=== PATIENT | male | born 1930 | race Caucasian/White ===

== ENCOUNTER → 2018-09-23 | Day surgery (SDC) | payer OTHER ==
[2018-09-13 13:35] VITALS: BMI 26.4
[~2018-09-23] MED LIST: BUPIVACAINE HCL/PF 0.5% (5MG/ML) 10 ML VIAL ONE; CEFAZOLIN 1 GM/D5W 50 ML IVPB ONE; CELECOXIB 200 MG CAPSULE PO ONE; DEXAMETHASONE SOD PHOSPHATE 4 MG/1 ML VIAL ONE; KETOROLAC TROMETHAMINE 30 MG/1 ML VIAL ONE; ONDANSETRON 4 MG/2 ML VIAL ONE; PROPOFOL 20 ML ONE; ROPIVICAINE 0.2%/MORPH PF/KETOROLAC - 51ML DISP.SYRINGE IA ONE; SUCCINYLCHOLINE CHLORIDE 200 MG/10 ML VIAL ONE; TRANEXAMIC ACID 1000 MG/10 ML VIAL IVPUSH ONE; TRANEXAMIC ACID 1000 MG/10 ML VIAL ONE; ceFAZolin SODIUM 1 GM VIAL ONE; ePHEDrine SULFATE 50 MG/1 ML AMPULE ONE
[2018-09-23 06:56] VITALS: BP 131/76; PULSE 81; TEMP 98.9
== END | disposition home or self-care (01) ==
LOC: UNDOADMIN 06:04 → FASUSAT 06:04 → FM/S 06:04 → EDSTATUS 08:00
PROVIDERS: ATTEND Orthopaedic Surgery Orthopaedic Surgery of the Spine
PROC: 0SRB0JZ Replacement of Left Hip Joint with Synthetic Substitute, Open Approach (ICD-10-PCS; principal; 2018-09-23)
DX: M16.12 Unilateral primary osteoarthritis, left hip (principal); Z53.8 Procedure and treatment not carried out for other reasons
CPT/HCPCS: 82962

== ENCOUNTER 2018-09-26 06:17 | Inpatient (IN) | payer OTHER ==
[2018-09-26] MEDS ORDERED: TRANEXAMIC ACID 1000 MG/10 ML VIAL ONE (07:06)
[2018-09-26] MEDS ORDERED: ceFAZolin SODIUM 1 GM VIAL ONE (07:06)
[2018-09-26] MEDS ORDERED: SUCCINYLCHOLINE CHLORIDE 200 MG/10 ML VIAL ONE (07:07)
[2018-09-26] MEDS ORDERED: PROPOFOL 20 ML ONE ×3 (07:07)
[2018-09-26] MEDS ORDERED: TRANEXAMIC ACID 1000 MG/10 ML VIAL IVPUSH ONE (07:11)
[2018-09-26] MEDS ORDERED: CEFAZOLIN 2 GM in DEXTROSE 5%-WATER - 50 ML IVPB ONE (07:11)
[2018-09-26] MEDS ORDERED: BUPIVACAINE HCL/PF 0.5% (5MG/ML) 10 ML VIAL ONE (07:13)
[2018-09-26] MEDS ORDERED: ROPIVACAINE HCL 0.5% 30ML VIAL ONE (07:17)
[2018-09-26] MEDS ORDERED: EPINEPHrine/PF 1 MG/1 ML (1:1,000) AMPULE ONE (07:17)
[2018-09-26] MEDS ORDERED: MIDAZOLAM HCL 2 MG/2 ML SINGLE DOSE VIAL ONE ×4 (07:17→08:55)
--- NOTE | 2018-09-26 08:11 | HP ---
History & Physical Update - History History: No Change - Physical Physical: No Change - Assessment Assessment: No Change - Plan Plan: No Change (Full H&P in chart from 09/16/18)
[2018-09-26 08:29] LABS: INR 1.03 (0.83-1.09); PROTHROMBIN TIME (PATIENT) 12.1 SEC (9.7-13.0)
[2018-09-26] MEDS ORDERED: VANCOMYCIN 1,000 MG VIAL (RESTRICTED TO ID ONLY) ONE (08:40)
[2018-09-26] MEDS ORDERED: KETAMINE HCL 200 MG/20 ML VIAL ONE (08:55)
[2018-09-26] MEDS ORDERED: BENZOIN/ALOE VERA/STORAX/TOLU 58 ML BOTTLE ONE (10:14)
[2018-09-26] MEDS ORDERED: MAG HYDROX/AL HYDROX/SIMETH 30 ML UNIT-DOSE CUP PO PRN (10:44)
[2018-09-26] MEDS ORDERED: MAGNESIUM HYDROX 2400MG/30ML ORAL SUSPENSION 30 ML CUP PO PRN (10:44)
[2018-09-26] MEDS ORDERED: ONDANSETRON 4 MG/2 ML VIAL IVPUSH PRN (10:44)
[2018-09-26] MEDS ORDERED: LACTATED RINGERS SOLUTION 1,000 ML IV SCH (10:45)
--- NOTE | 2018-09-26 10:56 | OP ---
Operative Note - Note: Operative Date: 09/26/18 Pre-Operative Diagnosis: Left hip degenerative joint disease Operation: Left hip arthroplasty Post-Operative Diagnosis: Same as Pre-op Surgeon: Tramaine Miranda Avionic Technician: Bernardino Mccurdy Anesthesia: Spinal Operative Report Dictated: Yes
--- NOTE | 2018-09-26 10:57 | SURG ---
Surgery Application Integration Specialist Note Application Integration Specialist: Bernardino Mccurdy PA-C Date of Service: 09/26/18 Diagnosis: Left hip degenerative joint disease Procedure: Left hip arthroplasty I was present for the entirety of the operative procedure. For further detail, please refer to operative report. Visit type - Case Type Case Type: Scheduled - Emergency Emergency Visit: No - New patient This patient is new to me today: Yes Date on this admission: 09/26/18
--- NOTE | 2018-09-26 11:49 | HP ---
CHIEF COMPLAINT: PCP: HISTORY OF PRESENT ILLNESS: ER course was notable for: (1) (2) (3) Recent Travel: PAST MEDICAL HISTORY: PAST SURGICAL HISTORY: Social History: Smoking: Alcohol: Drugs: Family History: Allergies lisinopril Allergy (Severe, Verified 05/19/18 12:21) Swelling HOME MEDICATIONS: Home Medications Medication Instructions Recorded Glipizide 5 mg PO DAILY 05/19/18 Metformin HCl [Glucophage] 500 mg PO DAILY 05/19/18 Multivitamins [Tab-A-Vit -] 1 tab PO DAILY 05/19/18 Oxycodone HCl/Acetaminophen 1 each PO BID PRN 05/19/18 [Oxycodone-Acetaminophen 10-325] Simvastatin 40 mg PO HS 05/19/18 Warfarin Na [Coumadin] 2.5 mg PO HS 09/13/18 Enoxaparin [Lovenox -] 40 mg SQ BID 09/23/18 REVIEW OF SYSTEMS CONSTITUTIONAL: Absent: fever, chills, diaphoresis, generalized weakness, malaise, loss of appetite, weight change HEENT: Absent: rhinorrhea, nasal congestion, throat pain, throat swelling, difficulty swallowing, mouth swelling, ear pain, eye pain, visual changes CARDIOVASCULAR: Absent: chest pain, syncope, palpitations, irregular heart rate, lightheadedness , peripheral edema RESPIRATORY: Absent: cough, shortness of breath, dyspnea with exertion, orthopnea, wheezing, stridor, hemoptysis GASTROINTESTINAL: Absent: abdominal pain, abdominal distension, nausea, vomiting, diarrhea, constipation, melena, hematochezia GENITOURINARY: Absent: dysuria, frequency, urgency, hesitancy, hematuria, flank pain, genital pain MUSCULOSKELETAL: Absent: myalgia, arthralgia, joint swelling, back pain, neck pain SKIN: Absent: rash, itching, pallor HEMATOLOGIC/IMMUNOLOGIC: Absent: easy bleeding, easy bruising, lymphadenopathy, frequent infections ENDOCRINE: Absent: unexplained weight gain, unexplained weight loss, heat intolerance, cold intolerance NEUROLOGIC: Absent: headache, focal weakness or paresthesias, dizziness, unsteady gait, seizure, mental status changes, bladder or bowel incontinence PSYCHIATRIC: Absent: anxiety, depression, suicidal or homicidal ideation, hallucinations. PHYSICAL EXAMINATION Vital Signs - 24 hr 09/26/18 07:10 Temperature 98.3 F Pulse Rate 77 Respiratory 15 Rate Blood Pressure 116/64 GENERAL: Awake, alert, and fully oriented, in no acute distress. HEAD: Normal with no signs of trauma. EYES: Pupils equal, round and reactive to light, extraocular movements intact, sclera anicteric, conjunctiva clear. No lid lag. EARS, NOSE, THROAT: Ears normal, nares patent, oropharynx clear without exudates. Moist mucous membranes. NECK: Normal range of motion, supple without lymphadenopathy, JVD, or masses. LUNGS: Breath sounds equal, clear to auscultation bilaterally. No wheezes, and no crackles. No accessory muscle use. HEART: Regular rate and rhythm, normal S1 and S2 without murmur, rub or gallop. ABDOMEN: Soft, nontender, not distended, normoactive bowel sounds, no guarding, no rebound, no masses. No hepatomegaly or splenomegaly. MUSCULOSKELETAL: Normal range of motion at all joints. No bony deformities or tenderness. No CVA tenderness. UPPER EXTREMITIES: 2+ pulses, warm, well-perfused. No cyanosis. No clubbing. No peripheral edema. LOWER EXTREMITIES: 2+ pulses, warm, well-perfused. No calf tenderness. No peripheral edema. NEUROLOGICAL: Cranial nerves II-XII intact. Normal speech. Normal gait. PSYCHIATRIC: Cooperative. Good eye contact. Appropriate mood and affect. SKIN: Warm, dry, normal turgor, no rashes or lesions noted, normal capillary refill. Laboratory Results - last 24 hr 09/26/18 09/26/18 09/26/18 06:48 07:02 11:10 PT with INR 12.10 INR 1.03 POC Glucometer 161 109 ASSESSMENT/PLAN:
[2018-09-26] MEDS: ACETAMINOPHEN 325 MG TABLET (FP) PO SCH ×2 (11:50→17:17)
--- NOTE | 2018-09-26 11:51 | CONSULT ---
Consultation: REQUESTING PROVIDER: Dr. Miranda CONSULT REQUEST: We have been asked to medically evaluate this patient post- operatively. HISTORY OF PRESENT ILLNESS: 87 year-old male with a PMH significant for HTN on no meds, Type II NIDDM, COPD and bronchiectasis on no meds, CKD, OA of spine and joints, s/p spine surgery and right hip replacement. Now s/p left total hip arthroplasty earlier today with Dr. Miranda. Patient has h/o DVT, first episode s/p spine surgery 2017 and he was started on Eliquis. Subsequently switched to warfarin because Eliquis was too expensive. Patient was taken off warfarin about 5 days prior to today's surgery and started on lovenox. REVIEW OF SYSTEMS: CONSTITUTIONAL: Absent: fever, chills, diaphoresis, generalized weakness, malaise, loss of appetite, weight change HEENT: Absent: rhinorrhea, nasal congestion, throat pain, throat swelling, difficulty swallowing, mouth swelling, ear pain, eye pain, visual changes CARDIOVASCULAR: Absent: chest pain, syncope, palpitations, irregular heart rate, lightheadedness , peripheral edema RESPIRATORY: Absent: cough, shortness of breath, dyspnea with exertion, orthopnea, wheezing, stridor, hemoptysis GASTROINTESTINAL: Absent: abdominal pain, abdominal distension, nausea, vomiting, diarrhea, constipation, melena, hematochezia GENITOURINARY: Absent: dysuria, frequency, urgency, hesitancy, hematuria, flank pain, genital pain MUSCULOSKELETAL: Absent: myalgia, arthralgia, joint swelling, back pain, neck pain SKIN: Absent: rash, itching, pallor HEMATOLOGIC/IMMUNOLOGIC: Absent: easy bleeding, easy bruising, lymphadenopathy, frequent infections ENDOCRINE: Absent: unexplained weight gain, unexplained weight loss, heat intolerance, cold intolerance NEUROLOGIC: Absent: headache, focal weakness or paresthesias, dizziness, unsteady gait, seizure, mental status changes, bladder or bowel incontinence PSYCHIATRIC: Absent: anxiety, depression, suicidal or homicidal ideation, hallucinations. PHYSICAL EXAMINATION Vital Signs - 24 hr 09/26/18 07:10 Temperature 98.3 F Pulse Rate 77 Respiratory 15 Rate Blood Pressure 116/64 GENERAL: Awake, alert, and fully oriented, in no acute distress. HEAD: Normal with no signs of trauma. EYES: Pupils equal, round and reactive to light, extraocular movements intact, sclera anicteric, conjunctiva clear. No lid lag. EARS, NOSE, THROAT: Ears normal, nares patent, oropharynx clear without exudates. Moist mucous membranes. NECK: Normal range of motion, supple without lymphadenopathy, JVD, or masses. LUNGS: Breath sounds equal, clear to auscultation bilaterally. No wheezes, and no crackles. No accessory muscle use. HEART: Regular rate and rhythm, normal S1 and S2 without murmur, rub or gallop. ABDOMEN: Soft, nontender, not distended, normoactive bowel sounds, no guarding, no rebound, no masses. No hepatomegaly or splenomegaly. No lebron. MUSCULOSKELETAL: Normal range of motion at all joints. No bony deformities or tenderness. No CVA tenderness. UPPER EXTREMITIES: 2+ pulses, warm, well-perfused. No cyanosis. No clubbing. Cap refill <2 seconds. No peripheral edema. LOWER EXTREMITIES: 2+ pulses, warm, well-perfused. SCDs, TEDs, ice omar. Surgical dressing c/d/i. No surrounding erythema, edema, fluctuance. Hemovac drain in place. NEUROLOGICAL: Cranial nerves II-XII intact. Normal speech. Laboratory Results - last 24 hr 09/26/18 09/26/18 09/26/18 06:48 07:02 11:10 PT with INR 12.10 INR 1.03 POC Glucometer 161 109 Current Medications Generic Name Dose Route Start Last Admin Trade Name Freq PRN Reason Stop Dose Admin Acetaminophen 650 mg 09/26/18 18:00 09/26/18 11:50 Tylenol - PO 09/29/18 17:59 650 mg Q6H NEETA Administration Al Hydroxide/Mg Hydroxide 30 ml 09/26/18 10:44 Mylanta Oral Suspension - PO Q4H PRN DYSPEPSIA Atorvastatin Calcium 20 mg 09/26/18 22:00 Lipitor - PO HS NEETA Enoxaparin Sodium 75 mg 09/26/18 16:30 Lovenox - SQ Q12H NEETA Cefazolin Sodium 1 gram in 50 mls @ 100 mls/hr 09/26/18 18:00 Ancef 1 Gm Premixed Ivpb - IVPB 09/27/18 02:29 Q8H-IV NEETA Lactated Ringer's 1,000 mls @ 125 mls/hr 09/26/18 10:45 09/26/18 12:46 Lactated Ringers Solution IV 09/27/18 06:00 125 mls/hr ASDIR [facility] Administration Insulin Aspart 0 units 09/26/18 16:30 09/26/18 16:51 Novolog Vial SQ 6 units ACHS [facility] Administration Protocol Magnesium Hydroxide 30 ml 09/26/18 10:44 Milk Of Magnesia - PO PRN PRN CONSTIPATION Ondansetron HCl 4 mg 09/26/18 10:44 09/26/18 11:50 Zofran Injection IVPUSH 4 mg Q6H PRN Administration NAUSEA Oxycodone HCl 5 mg 09/26/18 11:32 09/26/18 11:53 Roxicodone - PO 5 mg Q3H PRN Administration PAIN LEVEL 1-5 Oxycodone HCl 10 mg 09/26/18 11:32 09/26/18 15:56 Roxicodone - PO 10 mg Q3H PRN Administration PAIN LEVEL 6-10 Pantoprazole Sodium 40 mg 09/27/18 10:00 Protonix - PO DAILY [facility] Senna/Docusate Sodium 2 tablet 09/26/18 22:00 Pericolace - PO BID [facility] Warfarin Sodium 5 mg 09/26/18 18:00 Coumadin - PO DAILY@1800 [facility] ASSESSMENT/PLAN: 87 year-old male with a PMH significant for HTN on no meds, Type II NIDDM, COPD and bronchiectasis on no meds, CKD, OA of spine and joints, s/p spine surgery and right hip replacement. Now s/p left total hip arthroplasty earlier today with Dr. Miranda. Patient has h/o DVT, first episode s/p spine surgery 2016. Left total hip arthroplasty h/o post-op DVT --POD #0 --perioperative antibiotics per surgery --pain management per surgery --anticoagulation: h/o DVT on coumadin at home which was stopped five days before surgery; adjusted lovenox to therapeutic dosing 1mg/kg BID; dose warfarin 5mg tonight, INR goal 2-3 --protonix --bowel regimen --incentive spirometry --Hemovac drain, monitor output --no lebron, voiding trial; if patient has not urinated in [address] Miranda Hypertension --BP stable --on no anti-hypertensives Type II NIDDM --Novolog sliding scale coverage COPD/bronchiectasis --stable, on no home meds CKD --pre-op BUN/Cr 03/08 --renal function stable FEN Fluids: PO intake adequate Electrolytes: replete as indicated Nutrition: regular diet DVT prophylaxis: lovenox 1mg/kg BID; ambulation, SCDs, TEDs Physical therapy Dispo: We will continue to follow the patient. Thank you for this consultative opportunity. Visit type - Emergency Visit Emergency Visit: No - New Patient This patient is new to me today: Yes Date on this admission: 09/26/18 - Critical Care Critical Care patient: No
[2018-09-26] MEDS: oxyCODONE HCL 5 MG TABLET PO PRN ×4 (11:53→21:00)
[2018-09-26] MEDS ORDERED: ONDANSETRON 4 MG/2 ML VIAL ONE (11:54)
[2018-09-26] MEDS ORDERED: oxyCODONE HCL 5 MG TABLET ONE (11:54)
[2018-09-26] MEDS: INSULIN (NOVOLOG) ASPART 100 UNITS/ML 10ML VIAL SQ SCH ×2 (16:51→21:07)
[2018-09-26] MEDS: CEFAZOLIN 1 GM/D5W 1 GRAM/50 ML BAG IVPB SCH (17:17)
[2018-09-26] MEDS: WARFARIN NA 5 MG TABLET (UD) PO SCH (17:17)
[2018-09-26] MEDS: ENOXAPARIN NA (PORCINE) 80 MG/0.8 ML DISP.SYRIN SQ SCH (17:31)
[2018-09-26] MEDS: SENNOSIDES/DOCUSATE COMBO (SENNA PLUS) TABLET (UD) PO SCH (21:00)
[2018-09-26] MEDS: ATORVASTATIN CA 20 MG TABLET (FP) PO SCH (21:01)
[2018-09-26] MEDS ORDERED: PATIENT'S OWN MEDICATION (NON-FORMULARY) (Simvastatin [Simvastatin] 40 MG) PO SCH (22:00)
[2018-09-26] MEDS ORDERED: WARFARIN NA 2.5 MG TABLET (FP) PO SCH (22:00)
[2018-09-26] MEDS ORDERED: ENOXAPARIN NA (PORCINE) 40 MG/0.4 ML DISP.SYRIN SQ SCH (22:00)
[2018-09-27] MEDS: oxyCODONE HCL 5 MG TABLET PO PRN ×3 (02:57→21:12)
[2018-09-27] MEDS: CEFAZOLIN 1 GM/D5W 1 GRAM/50 ML BAG IVPB SCH (02:57)
[2018-09-27] MEDS: ENOXAPARIN NA (PORCINE) 80 MG/0.8 ML DISP.SYRIN SQ SCH ×2 (05:27→17:30)
[2018-09-27] MEDS: ACETAMINOPHEN 325 MG TABLET (FP) PO SCH ×4 (06:32→18:08)
[2018-09-27] MEDS: INSULIN (NOVOLOG) ASPART 100 UNITS/ML 10ML VIAL SQ SCH ×4 (06:32→21:56)
[2018-09-27] MEDS ORDERED: metFORMIN HCL 500 MG TABLET (FP) PO SCH (07:00)
[2018-09-27] MEDS ORDERED: glipiZIDE 5 MG TABLET (FP) PO SCH (07:00)
--- NOTE | 2018-09-27 07:24 | PN ---
Progress Note (short form) - Note Progress Note: POD #1 s/p Left SANTA Alert. Sitting in chair at bedside. Elevated with ice pack in place. C/o incisional tenderness. Pain controled via variety of medications PO & IV. Hasn't ambulated with PT yet. Denies n/v/f/c, CP, palpitations, SOB or CARRANZA. Last Vital Signs Temp Pulse Resp BP Pulse Ox 98.7 F 102 H 18 125/65 99 09/27/ 06:00 09/27/18 06:00 09/27/18 06:00 09/27/18 06:00 09/27/18 06:00 PE Gen: nad LE: Right unremarkable. LLE with dressing c/d/i. No hematoma. Hemovac on self- suction (signs of thinning out). Elevated with ice pack in place. Abduction pillow in place. No calf tenderness/swelling/edema. DP 2+ Problem List - Problems (1) Degenerative joint disease of left hip Assessment/Plan: POD #1 Cont pain management DVT PPX: ASA 81 mg bid x 6 weeks and TEDs/SCDs Incentive Spirometer OOB w/ PT WBAT LLE Posterior hip precaution Hip abduction pillow (in place) Monitor drain output and record q shift f/u AM labs Patient states [facility] to [facility] DC planning 09/28/18 Above plan discussed with Dr. Tramaine Miranda and agrees. Code(s): M16.12 - UNILATERAL PRIMARY OSTEOARTHRITIS, LEFT HIP
[2018-09-27 08:22] LABS: HEMATOCRIT 31.8 % (35.4-49); HEMOGLOBIN 10.3 GM/dl (11.7-16.9); MCH 29.6 pg (25.7-33.7); MCHC 32.4 g/dl (32.0-35.9); MEAN CELL VOLUME 91.2 fl (80-96); MEAN PLT VOLUME 8.7 fl (7.5-11.1); PLATELET COUNT 169 K/MM3 (134-434); RBC 3.49 M/mm3 (4.00-5.60); RDW 12.7 % (11.9-15.9); WHITE BLOOD COUNT 10.1 K/mm3 (4.0-10.8)
[2018-09-27 08:44] LABS: ANION GAP 8 MMOL/L (8-16); BLOOD UREA NITROGEN 20 mg/dl (7-18); CALCIUM 8.3 mg/dl (8.5-10); CHLORIDE 102 mmol/L (98-107); CO2 24 mmol/L (21-32); CREATININE 1.3 mg/dl (0.55-1.3); GLUCOSE,RANDOM 274 mg/dl (74-106); MAGNESIUM 1.7 mg/dL (1.8-2.4); POTASSIUM 4.4 mmol/L (3.5-5.1); SODIUM 134 mmol/L (136-145)
[2018-09-27] MEDS: PANTOPRAZOLE 40 MG TABLET (FP) PO SCH (09:00)
[2018-09-27] MEDS: SENNOSIDES/DOCUSATE COMBO (SENNA PLUS) TABLET (UD) PO SCH ×2 (09:00→21:12)
[2018-09-27 09:48] LABS: INR 1.39 (0.82-1.09); PROTHROMBIN TIME (PATIENT) 15.5 SEC (10.2-13.0)
[2018-09-27] MEDS ORDERED: MAGNESIUM SULF 50% (8.12 MEQ/2 ML-1 GM VIAL) IVPB ONE (09:49)
--- NOTE | 2018-09-27 09:50 | PN ---
Physical Exam: SUBJECTIVE: Patient seen and examined oob to chair. Worked with PT this am, session went well. Pain is well-managed. OBJECTIVE: Vital Signs Period Temp Pulse Resp BP Sys/Faria Pulse Ox Last 24 Hr 97.5 F-99.3 F 60-110 07-06 109-140/51-82 95-100 GENERAL: Awake, alert, and fully oriented, in no acute distress. LUNGS: Breath sounds equal, clear to auscultation bilaterally. No wheezes, and no crackles. No accessory muscle use. HEART: Regular rate and rhythm, normal S1 and S2 ABDOMEN: Soft, nontender, not distended UPPER EXTREMITIES: 2+ pulses, warm, well-perfused. No cyanosis. No clubbing. Cap refill <2 seconds. No peripheral edema. LOWER EXTREMITIES: 2+ pulses, warm, well-perfused. SCDs, TEDs, ice omar. Left upper thigh surgical dressing c/d/i. No surrounding erythema, edema, fluctuance. Hemovac drain in place. NEUROLOGICAL: Cranial nerves II-XII intact. Normal speech. Laboratory Results - last 24 hr 09/26/18 09/26/18 09/26/18 11:10 16:45 21:05 WBC RBC Hgb Hct MCV MCH MCHC RDW Plt Count MPV Sodium Potassium Chloride Carbon Dioxide Anion Gap BUN Creatinine Creat Clearance w eGFR POC Glucometer 109 264 201 Random Glucose Calcium Magnesium 09/27/18 09/27/18 09/27/18 06:29 07:10 07:10 WBC 10.1 RBC 3.49 L Hgb 10.3 L Hct 31.8 L MCV 91.2 MCH 29.6 MCHC 32.4 RDW 12.7 Plt Count 169 MPV 8.7 Sodium 134 L Potassium 4.4 Chloride 102 Carbon Dioxide 24 Anion Gap 8 BUN 20 H Creatinine 1.3 Creat Clearance w eGFR 52.47 POC Glucometer 251 Random Glucose 274 H Calcium 8.3 L Magnesium 1.7 L Active Medications Generic Name Dose Route Start Last Admin Trade Name Freq PRN Reason Stop Dose Admin Acetaminophen 650 mg 09/26/18 18:00 09/27/18 06:32 Tylenol - PO 09/29/18 17:59 650 mg Q6H NEETA Administration Al Hydroxide/Mg Hydroxide 30 ml 09/26/18 10:44 Mylanta Oral Suspension - PO Q4H PRN DYSPEPSIA Atorvastatin Calcium 20 mg 09/26/18 22:00 09/26/18 21:01 Lipitor - PO 20 mg HS NEETA Administration Enoxaparin Sodium 75 mg 09/26/18 17:30 09/27/18 05:27 Lovenox - SQ 75 mg BID@0500,1700 NEETA Administration Insulin Aspart 0 units 09/26/18 16:30 09/27/18 06:32 Novolog Vial SQ 6 units ACHS NEETA Administration Protocol Magnesium Hydroxide 30 ml 09/26/18 10:44 Milk Of Magnesia - PO PRN PRN CONSTIPATION Magnesium Sulfate 2 gm 09/27/18 09:49 Magnesium Sulfate IVPB 09/27/18 09:50 ONCE ONE Ondansetron HCl 4 mg 09/26/18 10:44 09/26/18 11:50 Zofran Injection IVPUSH 4 mg Q6H PRN Administration NAUSEA Oxycodone HCl 5 mg 09/26/18 11:32 09/26/18 11:53 Roxicodone - PO 5 mg Q3H PRN Administration PAIN LEVEL 1-5 Oxycodone HCl 10 mg 09/26/18 11:32 09/27/18 06:27 Roxicodone - PO 10 mg Q3H PRN Administration PAIN LEVEL 6-10 Pantoprazole Sodium 40 mg 09/27/18 10:00 09/27/18 09:00 Protonix - PO 40 mg DAILY NEETA Administration Senna/Docusate Sodium 2 tablet 09/26/18 22:00 09/27/18 09:00 Pericolace - PO 2 tablet BID NEETA Administration Warfarin Sodium 5 mg 09/26/18 18:00 09/26/18 17:17 Coumadin - PO 5 mg DAILY@1800 [facility] Administration ASSESSMENT/PLAN 87 year-old male with a PMH significant for HTN on no meds, Type II NIDDM, COPD and bronchiectasis on no meds, CKD, OA of spine and joints, s/p spine surgery and right hip replacement. Now s/p left total hip arthroplasty. Patient has h/o DVT, first episode s/p spine surgery 2016. Left total hip arthroplasty h/o post-op DVT --POD #1 --perioperative antibiotics per surgery --pain management per surgery --anticoagulation: h/o DVT on coumadin at home which was stopped five days before surgery and started on lovenox, continue 1mg/kg BID; INR today 1.39, dose warfarin 5mg tonight, INR goal 2-3 --protonix --bowel regimen --incentive spirometry --Hemovac drain, 60cc's output overnight --no lebron, voiding freely Hypertension --BP stable --on no anti-hypertensives Type II NIDDM --Novolog sliding scale coverage COPD/bronchiectasis --stable, on no home meds CKD --pre-op BUN/Cr 03/08 --renal function stable Hypomagnesemia --repleted FEN Fluids: PO intake adequate Electrolytes: replete as indicated Nutrition: regular diet DVT prophylaxis: lovenox 1mg/kg BID; ambulation, SCDs, TEDs Physical therapy Dispo: We will continue to follow the patient. Thank you for this consultative opportunity. Visit type - Emergency Visit Emergency Visit: No - New Patient This patient is new to me today: No - Critical Care Critical Care patient: No
--- NOTE | 2018-09-27 09:53 | PN ---
Progress Note (short form) - Note Progress Note: Anesthesiology Post-op/Pain Service 87 y.o. man POD#1 s/p Left hip arthroplasty under regional/neuraxial anesthesia. He is just starting to work with PT and does c/o pain. He states that pain medication helps somewhat. VSS. No acute issues. No residual paresthesia. 87 y.o. man with stable post-operative course. Continue management as per primary team.
[2018-09-27] MEDS ORDERED: MULTIVITAMINS (DAILY MVI) TABLET (FP) PO SCH (10:00)
--- NOTE | 2018-09-27 10:22 | OP ---
DATE OF OPERATION: 09/26/2018 SURGEON: Tramaine Miranda MD SHEET METAL FOREMAN: Bernardino Mccurdy PA-C PLACE: [facility]. PREOPERATIVE DIAGNOSIS: End-stage osteoarthritis, left hip. POSTOPERATIVE DIAGNOSIS: End-stage osteoarthritis, left hip. OPERATION PERFORMED: Left cement-less total hip arthroplasty ([place]). ANESTHESIA: Spinal anesthesia with conscious sedation. ANTIBIOTICS GIVEN: Kefzol 2 g, vancomycin 1 g preoperatively. Kefzol 1 g given at the time of seating of the femoral component. OPERATION DETAILS: The patient was correctly identified, brought into the operating room. The left lower extremity was prepped, draped in the routine manner with Betadine scrub solution, wiped with alcohol, DuraPrep applied. A lateral incision was utilized with the hip and knee flexed to 45 degrees. The skin and subcutaneous tissues were opened to the hip abductor fascia. The hip abductor fascia opened, held out of harms way with Charnley retractors, exposing the entire hip abductor mechanism using anterior lateral approach. The anteromedial fibers of gluteus medius were lifted off of the actual greater trochanter. Sharp Hohmann was placed extracapsularly to expose the capsule itself. The capsule enabled an easy visualization, and it was lifted off the actual femoral neck using a unipolar Bovie from inferomedial to superolateral. One T-incision made into the capsule, lifting the entire capsule upwards. Once this had been performed, the hip was abducted, externally rotated and dislocated with no difficulty. Severe osteoarthritis encountered. An anterior, posterior, inferior retractor was seated around the acetabulum exposing the acetabulum with no difficulty. The labrum was resected. The reaming was to size 52, and a size 54 Trident II plastic cup inserted. Solid press-fit fixation achieved. Cut was at 15 degrees anteverted and closed appropriately to about 40 degrees. Once this had been performed, the hip was adducted, externally rotated. The gluteus medius was retracted out of harms way. Best using a sharp Hohmann, box cut enabled easy access to the entry of the greater trochanter. The canal finder was passed. The lateralizing broach reamer was inserted, and broaching was to size 5, and trialing with this Accolade II broach system for a 127-mm stem founded at 32-mm like head and -4 ceramic head gave equal leg length on the table and full stability with all ranges of motion noted. No complications. The tissues were thoroughly lavaged throughout. The definitive prosthesis was inserted, namely that being an Accolade II size 5 with a 127-degree stem and 32-mm -4 ceramic head seated in a 32-mm neutral liner. Lumens were thoroughly lavaged. Stability in flexion, , internal rotation, as well as extension, external rotation noted. Full range of movement appreciated. The tissues of the tissue tensioning felt normal and well maintained with a tight reduction achieved, myofascial tension being correct. Closure hip abductor mechanism 1 Vicryl, fascia 1 Vicryl, subcutaneous 1 and 2-0 Vicryl, skin ashtyn. Drainage 1/8-inch subcutaneously x1. No complications. Operation went well. Blood loss no more then 50-75 mL. MD RAMAN Horan/[id number]
[2018-09-27] MEDS ORDERED: MAGNESIUM SULFATE IN WATER 2 GM/50 ML IVPB IVPB ONE (10:30)
[2018-09-27] MEDS ORDERED: SODIUM CHLORIDE 1,000 ML IV STA (14:11)
--- NOTE | 2018-09-27 14:28 | RAPID ---
Physical Examination Vital Signs: Labs: CBC, BMP 09/27/18 07:10 09/27/18 07:10 Rapid Response - Rapid Response Assessment: Summoned to room by RN Krystin and PT Milena Gruber. Advised patient was in the PT room when he complained of feeling weak. His BP dropped to 66/43, pulse 80s, SpO2 80% on room air. He was quickly rolled back to his room. On my arrival IV fluids were already running wide open. Patient was alert, oriented, speaking clearly. Physical exam General: A&Ox3, pale but skin dry, warm Lungs: CTA CV: S1, S2, rrr Abd: soft, not tender, not distended Ext: SCDs in place; 2+ pulses, warm, well-perfused Left hip: surgical dressing c/d/i; Hemovac drain with estimated ~30cc sanguinous fluid Asssessment & Plan Hypotension Hypoxia --NS x 1L; then 83mL/hr --titrate O2 to >94% --cbc, cmp, Mg, lactic acid, troponins --CXR --ECG Critical Care Total Critical Care Time (in minutes): 35 Critical Care Statement: The care of this patient involved high complexity decision making to prevent further life threatening deterioration of the patient 's condition and/or to evaluate & treat vital organ system(s) failure or risk of failure.
[2018-09-27 14:39] LABS: BASO % 0.2 % (0-2.0); EOS % 0.2 % (0-4.5); HEMOGLOBIN 9.8 GM/dl (11.7-16.9); LYMPH % 12.8 % (8-40); MCH 29.4 pg (25.7-33.7); MCHC 32.5 g/dl (32.0-35.9); MEAN CELL VOLUME 90.4 fl (80-96); MEAN PLT VOLUME 6.9 fl (7.5-11.1); MONO % 7.1 % (3.8-10.2); NEUT % 79.7 % (42.8-82.8); PLATELET COUNT 182 K/MM3 (134-434); RBC 3.32 M/mm3 (4.00-5.60); WHITE BLOOD COUNT 11.4 K/mm3 (4.0-10.8)
[2018-09-27] MEDS: SODIUM CHLORIDE 1,000 ML IV SCH (14:45)
[2018-09-27 15:19] LABS: ALBUMIN 3.1 g/dl (3.4-5.0); ALK PHOS 33 U/L (45-117); ANION GAP 9 MMOL/L (8-16); BILIRUBIN,TOTAL 0.5 mg/dl (0.2-1); BLOOD UREA NITROGEN 26 mg/dl (7-18); CALCIUM 8.1 mg/dl (8.5-10); CHLORIDE 103 mmol/L (98-107); CO2 22 mmol/L (21-32); CREATININE 1.7 mg/dl (0.55-1.3); GLUCOSE,RANDOM 202 mg/dl (74-106); MAGNESIUM 2.9 mg/dL (1.8-2.4); POTASSIUM 4.1 mmol/L (3.5-5.1); SGOT/AST 35 U/L (15-37); SGPT/ALT 26 U/L (13-61); SODIUM 134 mmol/L (136-145); TOT PROT 5.6 g/dl (6.4-8.2)
[2018-09-27] MEDS ORDERED: SODIUM CHLORIDE 500 ML IV STA ×2 (15:53→18:10)
--- NOTE | 2018-09-27 17:15 | EKG ---
Test Reason : Blood Pressure : / mmHG Vent. Rate : 088 BPM Atrial Rate : 088 BPM P-R Int : 174 ms QRS Dur : 102 ms QT Int : 424 ms P-R-T Axes : 038 -35 102 degrees QTc Int : 513 ms NORMAL SINUS RHYTHM LEFT AXIS DEVIATION MODERATE VOLTAGE CRITERIA FOR LVH, MAY BE NORMAL VARIANT NONSPECIFIC T WAVE ABNORMALITY ABNORMAL ECG NO PREVIOUS ECGS AVAILABLE Confirmed by MD ANNIA, VALERIO ([id number]) on 09/27/2018 5:14:41 PM Referred By: Tramaine Miranda Confirmed By:VALERIO MILNER MD
[2018-09-27] MEDS: WARFARIN NA 5 MG TABLET (UD) PO SCH (18:11)
[2018-09-27 20:58] LABS: BASO % 0.3 % (0-2.0); EOS % 0.2 % (0-4.5); HEMATOCRIT 26.2 % (35.4-49); HEMOGLOBIN 8.6 GM/dl (11.7-16.9); LYMPH % 12.8 % (8-40); MCH 29.6 pg (25.7-33.7); MCHC 32.7 g/dl (32.0-35.9); MEAN CELL VOLUME 90.5 fl (80-96); MEAN PLT VOLUME 8.5 fl (7.5-11.1); MONO % 6.3 % (3.8-10.2); NEUT % 80.4 % (42.8-82.8); PLATELET COUNT 146 K/MM3 (134-434); RDW 12.8 % (11.9-15.9); WHITE BLOOD COUNT 10.4 K/mm3 (4.0-10.8)
[2018-09-27 21:02] LABS: ANION GAP 5 MMOL/L (8-16); BLOOD UREA NITROGEN 26 mg/dl (7-18); CALCIUM 7.5 mg/dl (8.5-10); CHLORIDE 106 mmol/L (98-107); CO2 23 mmol/L (21-32); CREATININE 1.6 mg/dl (0.55-1.3); GLUCOSE,RANDOM 207 mg/dl (74-106); MAGNESIUM 2.4 mg/dL (1.8-2.4); SODIUM 134 mmol/L (136-145)
[2018-09-27] MEDS: ATORVASTATIN CA 20 MG TABLET (FP) PO SCH (21:12)
[2018-09-27 21:36] LABS: POTASSIUM 5.1 mmol/L (3.5-5.1)
[2018-09-28] MEDS: ACETAMINOPHEN 325 MG TABLET (FP) PO SCH ×4 (01:03→18:00)
[2018-09-28] MEDS: oxyCODONE HCL 5 MG TABLET PO PRN ×2 (06:55→20:37)
[2018-09-28] MEDS: ENOXAPARIN NA (PORCINE) 80 MG/0.8 ML DISP.SYRIN SQ SCH ×2 (06:56→18:51)
[2018-09-28] MEDS: INSULIN (NOVOLOG) ASPART 100 UNITS/ML 10ML VIAL SQ SCH ×4 (06:58→21:19)
[2018-09-28 07:58] LABS: HEMATOCRIT 23.5 % (35.4-49); HEMOGLOBIN 7.7 GM/dl (11.7-16.9); MCH 29.7 pg (25.7-33.7); MCHC 32.8 g/dl (32.0-35.9); MEAN CELL VOLUME 90.6 fl (80-96); MEAN PLT VOLUME 8.3 fl (7.5-11.1); PLATELET COUNT 139 K/MM3 (134-434); RBC 2.59 M/mm3 (4.00-5.60); WHITE BLOOD COUNT 10.2 K/mm3 (4.0-10.8)
[2018-09-28 08:01] LABS: INR 1.95 (0.82-1.09); PROTHROMBIN TIME (PATIENT) 21.5 SEC (10.2-13.0)
--- NOTE | 2018-09-28 08:09 | PN ---
Progress Note (short form) - Note Progress Note: POD 2, s/p L THR Pt seen and examined with attending Dr Miranda. Events from yesterday afternoon noted, pt had RR while ambulating with PT (weakness, hypotension/hypoxia). Given 1L bolus NS, O2, troponins/ekg neg for cardiac event, creatinine noted to inc (1.3 to 1.7). This AM pt states he still feels a bit weak. Is oob to chair. Tolerating minimal PO intake secondary to decreased appeitite. Voiding without issue. No BM yet. Denies cp/sob, n/v/d, calf pain/edema. Vital Signs Temp 99.2 F 09/28/18 06:00 Pulse 99 H 09/28/18 06:00 Resp 19 09/28/18 06:00 BP 109/47 L 09/28/18 06:00 Pulse Ox 96 09/28/18 06:48 Intake & Output 09/27/18 09/27/18 09/28/18 11:59 23:59 11:59 Intake Total 400 3030 1746 Output Total 460 450 Balance -60 3030 1296 Intake: IV 2200 1496 Normal Saline - 1,000 ml 1000 @ 1000 mls/hr IV ASDIR STA Rx#:[id number] Normal Saline - 1,000 ml 200 996 @ 83 mls/hr IV ASDIR NEETA Rx#:[id number] Normal Saline - 500 ml @ 500 500 mls/hr IV ASDIR STA Rx#:[id number] Normal Saline - 500 ml @ 500 500 500 mls/hr IV ASDIR STA Rx#:[id number] Oral 400 830 250 Output: Drainage 60 Left Hip 60 Urine 400 450 Void 400 450 Other: Voiding Method Toilet Urinal # Unmeasured Voids Void 2 Bowel Movement Yes # Bowel Movements 1 CBC, BMP 09/28/18 07:20 09/28/18 07:20 Gen: nad, sitting up in chair Eyes: b/l pale conjunctiva Resp: unlabored on RA LE: Right unremarkable. LLE with dressing c/d/i. No hematoma. Hemovac on self- suction with bloody drainage in tubing, elevated. Abduction pillow in place. No calf tenderness/swelling/edema. DP 2+ Neuro: b/l le dorsi/plantarflexion 5/5, 5/5 HF on R, unable to lift LLE. A/P: 87 y/o M w/ PMHx HTN on no meds, Type II NIDDM, COPD and bronchiectasis on no meds, CKD, OA of spine and joints, s/p spine surgery and right hip replacement in the past, now POD 2, s/p L THR now with acute blood loss anemia. Afebrile, slightly tachy to high 90s, low 100s, hypotensive to low 100s. Pain controlled. 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 Tramaine Miranda
[2018-09-28 08:10] LABS: ALBUMIN 2.6 g/dl (3.4-5.0); ALK PHOS 29 U/L (45-117); ANION GAP 8 MMOL/L (8-16); BILIRUBIN,TOTAL 0.6 mg/dl (0.2-1); BLOOD UREA NITROGEN 25 mg/dl (7-18); CALCIUM 7.7 mg/dl (8.5-10); CHLORIDE 108 mmol/L (98-107); CO2 22 mmol/L (21-32); CREATININE 1.5 mg/dl (0.55-1.3); GLUCOSE,RANDOM 189 mg/dl (74-106); MAGNESIUM 2.2 mg/dL (1.8-2.4); SGOT/AST 22 U/L (15-37); SGPT/ALT 15 U/L (13-61); SODIUM 138 mmol/L (136-145); TOT PROT 4.9 g/dl (6.4-8.2)
[2018-09-28] MEDS: PANTOPRAZOLE 40 MG TABLET (FP) PO SCH (10:00)
[2018-09-28] MEDS: SENNOSIDES/DOCUSATE COMBO (SENNA PLUS) TABLET (UD) PO SCH ×2 (10:00→21:19)
--- NOTE | 2018-09-28 11:33 | PN ---
Physical Exam: SUBJECTIVE: Patient seen and examined oob to chair. Back from morning PT. Feels slightly dizzy. OBJECTIVE: Vital Signs Period Temp Pulse Resp BP Sys/Faria Pulse Ox Last 24 Hr 97.8 F-99.2 F 80-99 16-19 95-144/47-61 96-97 GENERAL: Awake, alert, and fully oriented, in no acute distress. LUNGS: Breath sounds equal, clear to auscultation HEART: Regular rate and rhythm, normal S1 and S2 ABDOMEN: Soft, nontender, not distended UPPER EXTREMITIES: 2+ pulses, warm, well-perfused. No cyanosis. No clubbing. Cap refill <2 seconds. No peripheral edema. LOWER EXTREMITIES: 2+ pulses, warm, well-perfused. SCDs, TEDs, ice omar. Left upper thigh surgical dressing c/d/i. No surrounding erythema, edema, fluctuance. Hemovac drain in place. NEUROLOGICAL: Cranial nerves II-XII intact. Normal speech. Laboratory Results - last 24 hr 09/27/18 09/27/18 09/27/18 14:20 14:20 14:20 WBC 11.4 H RBC 3.32 L Hgb 9.8 L Hct 30.0 L MCV 90.4 MCH 29.4 MCHC 32.5 RDW 13.0 Plt Count 182 MPV 6.9 L D Absolute Neuts (auto) 9.1 Neutrophils % 79.7 Lymphocytes % 12.8 Monocytes % 7.1 Eosinophils % 0.2 Basophils % 0.2 PT with INR INR Sodium 134 L Potassium 4.1 Chloride 103 Carbon Dioxide 22 Anion Gap 9 BUN 26 H Creatinine 1.7 H Creat Clearance w eGFR 38.50 POC Glucometer Random Glucose 202 H Lactic Acid Calcium 8.1 L Magnesium 2.9 H Total Bilirubin 0.5 AST 35 ALT 26 Alkaline Phosphatase 33 L Troponin I Total Protein 5.6 L Albumin 3.1 L Blood Type A POSITIVE Antibody Screen Negative Crossmatch See Detail 09/27/18 09/27/18 09/27/18 14:20 14:20 14:25 WBC RBC Hgb Hct MCV MCH MCHC RDW Plt Count MPV Absolute Neuts (auto) Neutrophils % Lymphocytes % Monocytes % Eosinophils % Basophils % PT with INR INR Sodium Potassium Chloride Carbon Dioxide Anion Gap BUN Creatinine Creat Clearance w eGFR POC Glucometer Random Glucose Lactic Acid 3.0 H* Calcium Magnesium Total Bilirubin AST ALT Alkaline Phosphatase Troponin I 0.03 Total Protein Albumin Blood Type A POSITIVE Antibody Screen Crossmatch 09/27/18 09/27/18 09/27/18 17:31 20:30 20:30 WBC RBC Hgb Hct MCV MCH MCHC RDW Plt Count MPV Absolute Neuts (auto) Neutrophils % Lymphocytes % Monocytes % Eosinophils % Basophils % PT with INR INR Sodium 134 L Potassium 5.1 Chloride 106 Carbon Dioxide 23 Anion Gap 5 L BUN 26 H Creatinine 1.6 H Creat Clearance w eGFR 41.29 POC Glucometer 213 Random Glucose 207 H Lactic Acid Calcium 7.5 L Magnesium 2.4 Total Bilirubin AST ALT Alkaline Phosphatase Troponin I 0.03 Total Protein Albumin Blood Type Antibody Screen Crossmatch 09/27/18 09/27/18 09/27/18 20:30 20:30 21:53 WBC 10.4 RBC 2.90 L Hgb 8.6 L Hct 26.2 L MCV 90.5 MCH 29.6 MCHC 32.7 RDW 12.8 Plt Count 146 MPV 8.5 D Absolute Neuts (auto) 8.4 Neutrophils % 80.4 Lymphocytes % 12.8 Monocytes % 6.3 Eosinophils % 0.2 Basophils % 0.3 PT with INR INR Sodium Potassium Chloride Carbon Dioxide Anion Gap BUN Creatinine Creat Clearance w eGFR POC Glucometer 174 Random Glucose Lactic Acid 2.1 H Calcium Magnesium Total Bilirubin AST ALT Alkaline Phosphatase Troponin I Total Protein Albumin Blood Type Antibody Screen Crossmatch 09/28/18 09/28/18 09/28/18 02:30 06:54 07:20 WBC 10.2 RBC 2.59 L Hgb 7.7 L Hct 23.5 L MCV 90.6 MCH 29.7 MCHC 32.8 RDW 13.0 Plt Count 139 MPV 8.3 Absolute Neuts (auto) Neutrophils % Lymphocytes % Monocytes % Eosinophils % Basophils % PT with INR INR Sodium Potassium Chloride Carbon Dioxide Anion Gap BUN Creatinine Creat Clearance w eGFR POC Glucometer 163 Random Glucose Lactic Acid Calcium Magnesium Total Bilirubin AST ALT Alkaline Phosphatase Troponin I < 0.02 Total Protein Albumin Blood Type Antibody Screen Crossmatch 09/28/18 09/28/18 07:20 07:20 WBC RBC Hgb Hct MCV MCH MCHC RDW Plt Count MPV Absolute Neuts (auto) Neutrophils % Lymphocytes % Monocytes % Eosinophils % Basophils % PT with INR 21.5 H INR 1.95 H D Sodium 138 Potassium 4.0 Chloride 108 H Carbon Dioxide 22 Anion Gap 8 BUN 25 H Creatinine 1.5 H Creat Clearance w eGFR 44.48 POC Glucometer Random Glucose 189 H Lactic Acid Calcium 7.7 L Magnesium 2.2 Total Bilirubin 0.6 AST 22 ALT 15 Alkaline Phosphatase 29 L Troponin I Total Protein 4.9 L Albumin 2.6 L Blood Type Antibody Screen Crossmatch Active Medications Generic Name Dose Route Start Last Admin Trade Name Freq PRN Reason Stop Dose Admin Acetaminophen 650 mg 09/26/18 18:00 09/28/18 06:56 Tylenol - PO 09/29/18 17:59 650 mg Q6H NEETA Administration Al Hydroxide/Mg Hydroxide 30 ml 09/26/18 10:44 Mylanta Oral Suspension - PO Q4H PRN DYSPEPSIA Atorvastatin Calcium 20 mg 09/26/18 22:00 09/27/18 21:12 Lipitor - PO 20 mg HS NEETA Administration Enoxaparin Sodium 75 mg 09/26/18 17:30 09/28/18 06:56 Lovenox - SQ 75 mg BID@0500,1700 NEETA Administration Sodium Chloride 1,000 mls @ 83 mls/hr 09/27/18 14:45 09/27/18 14:45 Normal Saline - IV 83 mls/hr ASDIR NEETA Administration Insulin Aspart 0 units 09/26/18 16:30 09/28/18 06:58 Novolog Vial SQ 2 units ACHS NEETA Administration Protocol Magnesium Hydroxide 30 ml 09/26/18 10:44 Milk Of Magnesia - PO PRN PRN CONSTIPATION Ondansetron HCl 4 mg 09/26/18 10:44 09/26/18 11:50 Zofran Injection IVPUSH 4 mg Q6H PRN Administration NAUSEA Oxycodone HCl 5 mg 09/26/18 11:32 09/28/18 06:55 Roxicodone - PO 5 mg Q3H PRN Administration PAIN LEVEL 1-5 Oxycodone HCl 10 mg 09/26/18 11:32 09/27/18 21:12 Roxicodone - PO 10 mg Q3H PRN Administration PAIN LEVEL 6-10 Pantoprazole Sodium 40 mg 09/27/18 10:00 09/27/18 09:00 Protonix - PO 40 mg DAILY NEETA Administration Senna/Docusate Sodium 2 tablet 09/26/18 22:00 09/27/18 21:12 Pericolace - PO 2 tablet BID NEETA Administration Warfarin Sodium 5 mg 09/26/18 18:00 09/27/18 18:11 Coumadin - PO 5 mg DAILY@1800 [facility] Administration ASSESSMENT/PLAN 87 year-old male with a PMH significant for HTN on no meds, Type II NIDDM, COPD and bronchiectasis on no meds, CKD, OA of spine and joints, s/p spine surgery and right hip replacement. Now s/p left total hip arthroplasty. Patient has h/o DVT, first episode s/p spine surgery 2016. Left total hip arthroplasty h/o post-op DVT --POD #2 --episode of hypotension yesterday, fluid resuscitated --perioperative antibiotics complete --pain management per surgery --anticoagulation: h/o DVT on coumadin at home which was stopped five days before surgery and started on lovenox, continue 1mg/kg BID; INR today 1.95, dose warfarin 5mg tonight, INR goal 2-3 --protonix --bowel regimen --incentive spirometry --no lebron, voiding freely Acute blood loss anemia in setting of anti-coagulation --Hemovac drain, 120cc's output overnight --Hgb dropped 10.3-->7.7, symptomatic --transfuse 2U PRBCs Hypertension --BP running on low side; not orthostatic --IV fluids Type II NIDDM --Novolog sliding scale coverage COPD/bronchiectasis --stable, on no home meds CKD --baseline creatinine 1.0 --Cr spiked 1.7 after hypotensive episode yesterday, improved to 1.5 today --continue IV fluids Hypomagnesemia --repleted FEN Fluids: NS@83mL/hr Electrolytes: replete as indicated Nutrition: regular diet DVT prophylaxis: lovenox 1mg/kg BID; warfarin 5mg tonight; ambulation, SCDs, TEDs Physical therapy Dispo: We will continue to follow the patient. Thank you for this consultative opportunity. Visit type - Emergency Visit Emergency Visit: Yes ED Registration Date: 09/26/18 Care time: The patient presented to the Emergency Department on the above date and was hospitalized for further evaluation of their emergent condition. - New Patient This patient is new to me today: No - Critical Care Critical Care patient: No
[2018-09-28] MEDS ORDERED: FUROSEMIDE 40 MG/4 ML INJECTABLE VIAL IVPUSH ONE (11:52)
--- NOTE | 2018-09-28 16:19 | PATH ---
Surgical Pathology Report Patient Name: MARIE MOON Med. Rec. #: [id number] /Age/Gender: 1930 (Age: 87) / M Account: [id number] Location: [facility] MED-SURG Taken: 09/26/2018 Received: 09/26/2018 Reported: 09/28/2018 Physicians: Tramaine Miranda M.D. Specimen(s) Received LEFT FEMORAL HEAD Clinical History Left hip osteoarthritis Final Diagnosis BONE, FEMORAL HEAD, LEFT, TOTAL HIP REPLACEMENT: BONE WITH DEGENERATIVE JOINT DISEASE AND FOCAL MILD INTERSTITIAL HEMORRHAGE. Electronically Signed Prudence Knutson M.D. Gross Description Received in formalin, labeled "left femoral head," is a 4.6 x 4.6 x 4.0 cm. femoral head with a 1.2 cm length portion of femoral neck attached. The margin of resection is smooth. The articular surface as well as a portion of the femoral neck displays a focal defect. The articular surface displays a 4.2 cm in greatest dimension area of eburnation. The remaining articular surface is rod-yellow and diffusely granular. The underlying trabecular bone is yellow and hard. A containers sales representative section is submitted in one cassette, following decalcification. /09/27/201809/27/2018
[2018-09-28] MEDS: WARFARIN NA 5 MG TABLET (UD) PO SCH (18:50)
[2018-09-28] MEDS ORDERED: INSULIN (NOVOLOG) ASPART 100 UNITS/ML 10ML VIAL ONE (20:56)
[2018-09-28] MEDS: SODIUM CHLORIDE 1,000 ML IV SCH (21:18)
[2018-09-28] MEDS: ATORVASTATIN CA 20 MG TABLET (FP) PO SCH (21:18)
[2018-09-29] MEDS: ACETAMINOPHEN 325 MG TABLET (FP) PO SCH ×3 (00:14→12:00)
[2018-09-29] MEDS: oxyCODONE HCL 5 MG TABLET PO PRN ×3 (06:35→21:53)
[2018-09-29] MEDS: ENOXAPARIN NA (PORCINE) 80 MG/0.8 ML DISP.SYRIN SQ SCH (06:35)
[2018-09-29] MEDS: INSULIN (NOVOLOG) ASPART 100 UNITS/ML 10ML VIAL SQ SCH ×3 (06:42→22:18)
--- NOTE | 2018-09-29 07:57 | PN ---
Progress Note (short form) - Note Progress Note: POD #3 s/p L THR Alert. Sitting in chair at bedside. No acute events over past 24hrs per RN notes. Patient received 2 PRBC yesterday 2/2 to low HH. No additional units needed. Patient feeling well this morning. Tolerating PO diet. Voiding spontaneously. Had a solid BM this morning. Denies n/v/f/c, CP, palpitation, SOB or CARRANZA. Last Vital Signs Temp Pulse Resp BP Pulse Ox 98.4 F 88 19 116/57 L 94 L //19 06:00 09/29/18 06:00 09/29/18 06:00 09/29/18 06:00 09/29/18 06:00 Gen: NAD. Resp: CTA bilat LE: Right unremarkable. LLE with dressing c/d/i. No hematoma. Hemovac 214( sanguinous)/24hrs. Abduction pillow in place. No calf tenderness/swelling/edema. DP 2+ Neuro: b/l le dorsi/plantarflexion 5/5, 5/5 HF on R, unable to lift LLE. Problem List - Problems (1) Degenerative joint disease of left hip Assessment/Plan: POD #3 s/p L THR ; acute blood loss anemia. Cont pain regimen as ordered DVT PPX: ASA 81 mg bid x 6 weeks and TEDs/SCDs Incentive Spirometer OOB w/ PT WBAT LLE Posterior hip precaution Hip abduction pillow Monitor drain output and record q shift Patient states he wants to go to [facility] --> Case Management DC planning Code(s): M16.12 - UNILATERAL PRIMARY OSTEOARTHRITIS, LEFT HIP
[2018-09-29 08:15] LABS: INR 2.5 (0.82-1.09); PROTHROMBIN TIME (PATIENT) 27.5 SEC (10.2-13.0)
[2018-09-29 08:23] LABS: ALBUMIN 2.4 g/dl (3.4-5.0); ALK PHOS 32 U/L (45-117); ANION GAP 9 MMOL/L (8-16); BILIRUBIN,TOTAL 1.5 mg/dl (0.2-1); BLOOD UREA NITROGEN 34 mg/dl (7-18); CALCIUM 7.3 mg/dl (8.5-10); CHLORIDE 107 mmol/L (98-107); CO2 20 mmol/L (21-32); CREATININE 1.6 mg/dl (0.55-1.3); GLUCOSE,RANDOM 221 mg/dl (74-106); MAGNESIUM 2.2 mg/dL (1.8-2.4); POTASSIUM 4.1 mmol/L (3.5-5.1); SGOT/AST 17 U/L (15-37); SGPT/ALT 9 U/L (13-61); SODIUM 136 mmol/L (136-145); TOT PROT 4.8 g/dl (6.4-8.2)
[2018-09-29 08:30] LABS: HEMATOCRIT 25.1 % (35.4-49); HEMOGLOBIN 8.3 GM/dl (11.7-16.9); MCH 29.8 pg (25.7-33.7); MCHC 32.9 g/dl (32.0-35.9); MEAN CELL VOLUME 90.5 fl (80-96); MEAN PLT VOLUME 9.1 fl (7.5-11.1); PLATELET COUNT 156 K/MM3 (134-434); RBC 2.77 M/mm3 (4.00-5.60); RDW 14.3 % (11.9-15.9)
[2018-09-29] MEDS: SENNOSIDES/DOCUSATE COMBO (SENNA PLUS) TABLET (UD) PO SCH ×2 (10:00→21:52)
[2018-09-29] MEDS: PANTOPRAZOLE 40 MG TABLET (FP) PO SCH (10:00)
--- NOTE | 2018-09-29 11:12 | PN ---
Physical Exam: SUBJECTIVE: Patient seen and examined oob to chair. Not feeling well. Tired, getting through PT was difficult. Has been having difficulty urinating. OBJECTIVE: Vital Signs Period Temp Pulse Resp BP Sys/Faria Pulse Ox Last 24 Hr 97.7 F-100.0 F 87-99 17-20 103-132/49-62 94-97 GENERAL: The patient is awake, alert, and fully oriented, in no acute distress. Weak appearing. LUNGS: Breath sounds equal, clear to auscultation bilaterally, no wheezes, no crackles, no accessory muscle use. HEART: Regular rate and rhythm, S1, S2 ABDOMEN: Slightly firm, not tender, not distended, + bowel sounds RIGHT LE: mild swelling thigh and knee, no warmth, no erythema; surgical dressing c/d/i NEUROLOGICAL: Cranial nerves II through XII grossly intact. Normal speech, gait not observed. Laboratory Results - last 24 hr 09/27/18 09/28/18 09/28/18 14:20 11:31 20:42 WBC RBC Hgb Hct MCV MCH MCHC RDW Plt Count MPV Absolute Neuts (auto) Neutrophils % Lymphocytes % Monocytes % Eosinophils % Basophils % PT with INR INR Sodium Potassium Chloride Carbon Dioxide Anion Gap BUN Creatinine Creat Clearance w eGFR POC Glucometer 223 221 Random Glucose Calcium Magnesium Total Bilirubin AST ALT Alkaline Phosphatase Total Protein Albumin Blood Type A POSITIVE Antibody Screen Negative Crossmatch See Detail 09/29/18 09/29/18 09/29/18 06:39 07:04 07:04 WBC 11.0 H RBC 2.77 L Hgb 8.3 L Hct 25.1 L MCV 90.5 MCH 29.8 MCHC 32.9 RDW 14.3 Plt Count 156 MPV 9.1 Absolute Neuts (auto) 8.4 Neutrophils % Centralized Traffic Control Operator Lymphocytes % Centralized Traffic Control Operator Monocytes % Centralized Traffic Control Operator Eosinophils % Centralized Traffic Control Operator Basophils % Centralized Traffic Control Operator PT with INR 27.5 H INR 2.50 H Sodium Potassium Chloride Carbon Dioxide Anion Gap BUN Creatinine Creat Clearance w eGFR POC Glucometer 201 Random Glucose Calcium Magnesium Total Bilirubin AST ALT Alkaline Phosphatase Total Protein Albumin Blood Type Antibody Screen Crossmatch 09/29/18 07:04 WBC RBC Hgb Hct MCV MCH MCHC RDW Plt Count MPV Absolute Neuts (auto) Neutrophils % Lymphocytes % Monocytes % Eosinophils % Basophils % PT with INR INR Sodium 136 Potassium 4.1 Chloride 107 Carbon Dioxide 20 L Anion Gap 9 BUN 34 H Creatinine 1.6 H Creat Clearance w eGFR 41.29 POC Glucometer Random Glucose 221 H Calcium 7.3 L Magnesium 2.2 Total Bilirubin 1.5 H AST 17 ALT 9 L Alkaline Phosphatase 32 L Total Protein 4.8 L Albumin 2.4 L Blood Type Antibody Screen Crossmatch Active Medications Generic Name Dose Route Start Last Admin Trade Name Freq PRN Reason Stop Dose Admin Acetaminophen 650 mg 09/26/18 18:00 09/29/18 06:34 Tylenol - PO 09/29/18 17:59 650 mg Q6H NEETA Administration Al Hydroxide/Mg Hydroxide 30 ml 09/26/18 10:44 Mylanta Oral Suspension - PO Q4H PRN DYSPEPSIA Atorvastatin Calcium 20 mg 09/26/18 22:00 09/28/18 21:18 Lipitor - PO 20 mg HS NEETA Administration Sodium Chloride 1,000 mls @ 83 mls/hr 09/27/18 14:45 09/28/18 21:18 Normal Saline - IV 83 mls/hr ASDIR NEETA Administration Insulin Aspart 0 units 09/26/18 16:30 09/29/18 06:42 Novolog Vial SQ 4 units ACHS NEETA Administration Protocol Magnesium Hydroxide 30 ml 09/26/18 10:44 Milk Of Magnesia - PO PRN PRN CONSTIPATION Ondansetron HCl 4 mg 09/26/18 10:44 09/26/18 11:50 Zofran Injection IVPUSH 4 mg Q6H PRN Administration NAUSEA Oxycodone HCl 5 mg 09/26/18 11:32 09/29/18 06:35 Roxicodone - PO 5 mg Q3H PRN Administration PAIN LEVEL 1-5 Oxycodone HCl 10 mg 09/26/18 11:32 09/27/18 21:12 Roxicodone - PO 10 mg Q3H PRN Administration PAIN LEVEL 6-10 Pantoprazole Sodium 40 mg 09/27/18 10:00 09/28/18 10:00 Protonix - PO 40 mg DAILY [facility] Administration Senna/Docusate Sodium 2 tablet 09/26/18 22:00 09/28/18 21:19 Pericolace - PO 2 tablet BID NEETA Administration Warfarin Sodium 4 mg 09/29/18 18:00 Coumadin - PO DAILY@1800 [facility] ASSESSMENT/PLAN 87 year-old male with a PMH significant for HTN on no meds, Type II NIDDM, COPD and bronchiectasis on no meds, CKD, OA of spine and joints, s/p spine surgery and right hip replacement, h/o post-surgical DVT (2017). Left total hip arthroplasty h/o post-op DVT --POD #3 --perioperative antibiotics complete --pain management per surgery --protonix --bowel regimen --incentive spirometry Acute kidney injury --Cr 1.3 on admission, jumped to 1.7 remains elevated despite IV fluids --patient complaining today of urinary retention, lebron placed ~600cc return , pink-tinged --US kidneys, bladder --strict I&Os, daily weights --urine studies Acute blood loss anemia in setting of anti-coagulation --INR is therapeutic today, stop lovenox; dose coumadin 4mg tonight --Hemovac drain still putting out 120cc's overnight --transfused 2U on 09/28 for Hgb 7.7-->modest response-->8.3 today --haptoglobin, LDH, peripheral smear, retic count ordered --stool for occult blood --monitor h/h q12h Hypertension --BP stable Type II NIDDM --Novolog sliding scale coverage COPD/bronchiectasis --stable, on no home meds Hypomagnesemia --repleted FEN Fluids: NS@50mL/hr Electrolytes: replete as indicated Nutrition: regular diet DVT prophylaxis: INR 2.5; warfarin 4mg tonight; ambulation, SCDs, TEDs Physical therapy on hold Dispo: We will continue to follow the patient. Thank you for this consultative opportunity. Visit type - Emergency Visit Emergency Visit: Yes ED Registration Date: 09/26/18 Care time: The patient presented to the Emergency Department on the above date and was hospitalized for further evaluation of their emergent condition. - New Patient This patient is new to me today: No - Critical Care Critical Care patient: No
[2018-09-29 11:48] LABS: BILIRUBIN,DIRECT 0.2 mg/dL (0.0-0.2)
[2018-09-29 12:34] LABS: PLATELET ESTIMATE ADEQUATE
[2018-09-29 12:59] LABS: PH,URINE 5.5 (4.5-8); URINE APPEARANCE Cloudy; URINE BILIRUBIN Negative (NEGATIVE); URINE COLOR Dark; URINE GLUCOSE (UA) Negative (NEGATIVE); URINE KETONE Trace (NEGATIVE); URINE LEUK ESTERASE Negative (NEGATIVE); URINE NITRITE Negative (NEGATIVE); URINE PROTEIN 1+ (NEGATIVE); URINE UROBILINOGEN 0.2 (0.2-1.0)
[2018-09-29 13:03] LABS: URINE BACTERIA 4+ /hpf (NEGATIVE); URINE RBC >100 /hpf (0-3)
[2018-09-29] MEDS ORDERED: SODIUM CHLORIDE 1,000 ML IV SCH ×2 (13:33→18:19)
[2018-09-29 17:12] LABS: HEMATOCRIT 22.2 % (35.4-49); MCH 29.1 pg (25.7-33.7); MCHC 32.8 g/dl (32.0-35.9); MEAN CELL VOLUME 88.7 fl (80-96); PLATELET COUNT 179 K/MM3 (134-434); RBC 2.51 M/mm3 (4.00-5.60); RDW 14.4 % (11.9-15.9); WHITE BLOOD COUNT 11.7 K/mm3 (4.0-10.8)
--- NOTE | 2018-09-29 17:25 | HOSP ---
Subjective - Review of Symptoms Events since last encounter: Advised by RN Eloise Hemovac drain put 100ccs out in past hour; lebron putting out dark red-tinged urine. Patient weak and complaining of back pain. Vital Signs Temperature 98.4 F 09/29/18 16:24 Pulse Rate 91 H 09/29/18 16:24 Respiratory Rate 18 09/29/18 16:24 Blood Pressure 124/56 L 09/29/18 16:24 O2 Sat by Pulse Oximetry (%) 97 09/29/18 16:24 Laboratory Results - last 24 hr 09/29/18 09/29/18 09/29/18 07:04 07:04 07:04 WBC 11.0 H RBC 2.77 L Hgb 8.3 L Hct 25.1 L MCV 90.5 MCH 29.8 MCHC 32.9 RDW 14.3 Plt Count 156 MPV 9.1 Absolute Neuts (auto) 8.4 Neutrophils % Customer Assistance Representative Neutrophils % (Manual) 86.0 H Band Neutrophils % No Result Required. Lymphocytes % Customer Assistance Representative Lymphocytes % (Manual) 8.0 Monocytes % Customer Assistance Representative Monocytes % (Manual) 4 Eosinophils % Customer Assistance Representative Eosinophils % (Manual) 2.0 Basophils % Customer Assistance Representative Platelet Estimate Adequate Retic Count PT with INR 27.5 H INR 2.50 H Sodium 136 Potassium 4.1 Chloride 107 Carbon Dioxide 20 L Anion Gap 9 BUN 34 H Creatinine 1.6 H Creat Clearance w eGFR 41.29 POC Glucometer Random Glucose 221 H Serum Osmolality Lactic Acid Calcium 7.3 L Magnesium 2.2 Total Bilirubin 1.5 H Direct Bilirubin AST 17 ALT 9 L Alkaline Phosphatase 32 L LD Total Total Protein 4.8 L Albumin 2.4 L Urine Color Urine Appearance Urine pH Ur Specific [place] Urine Protein Urine Glucose (UA) Urine Ketones Urine Blood Urine Nitrite Urine Bilirubin Urine Urobilinogen Ur Leukocyte Esterase Urine RBC Urine WBC Urine Bacteria Urine Osmolality Ur Random Sodium Urine Creatinine Crossmatch 09/29/18 09/29/18 09/29/18 11:15 11:19 11:19 WBC RBC Hgb Hct MCV MCH MCHC RDW Plt Count MPV Absolute Neuts (auto) Neutrophils % Neutrophils % (Manual) Band Neutrophils % Lymphocytes % Lymphocytes % (Manual) Monocytes % Monocytes % (Manual) Eosinophils % Eosinophils % (Manual) Basophils % Platelet Estimate Retic Count PT with INR INR Sodium Potassium Chloride Carbon Dioxide Anion Gap BUN Creatinine Creat Clearance w eGFR POC Glucometer Random Glucose Serum Osmolality 301 Lactic Acid 1.6 Calcium Magnesium Total Bilirubin Direct Bilirubin 0.2 AST ALT Alkaline Phosphatase LD Total 147 Total Protein Albumin Urine Color Urine Appearance Urine pH Ur Specific [place] Urine Protein Urine Glucose (UA) Urine Ketones Urine Blood Urine Nitrite Urine Bilirubin Urine Urobilinogen Ur Leukocyte Esterase Urine RBC Urine WBC Urine Bacteria Urine Osmolality Ur Random Sodium Urine Creatinine Crossmatch 09/29/18 09/29/18 09/29/18 11:19 12:40 12:40 WBC RBC Hgb Hct MCV MCH MCHC RDW Plt Count MPV Absolute Neuts (auto) Neutrophils % Neutrophils % (Manual) Band Neutrophils % Lymphocytes % Lymphocytes % (Manual) Monocytes % Monocytes % (Manual) Eosinophils % Eosinophils % (Manual) Basophils % Platelet Estimate Retic Count 1.92 H PT with INR INR Sodium Potassium Chloride Carbon Dioxide Anion Gap BUN Creatinine Creat Clearance w eGFR POC Glucometer Random Glucose Serum Osmolality Lactic Acid Calcium Magnesium Total Bilirubin Direct Bilirubin AST ALT Alkaline Phosphatase LD Total Total Protein Albumin Urine Color Dark Urine Appearance Cloudy Urine pH 5.5 Ur Specific [place] 1.020 Urine Protein 1+ H Urine Glucose (UA) Negative Urine Ketones Trace Urine Blood 3+ H Urine Nitrite Negative Urine Bilirubin Negative Urine Urobilinogen 0.2 Ur Leukocyte Esterase Negative Urine RBC >100 Urine WBC 5-10 Urine Bacteria 4+ Urine Osmolality 427 Ur Random Sodium Urine Creatinine Crossmatch 09/29/18 09/29/18 09/29/18 12:40 12:40 16:44 WBC 11.7 H RBC 2.51 L Hgb 7.3 L Hct 22.2 L MCV 88.7 MCH 29.1 MCHC 32.8 RDW 14.4 Plt Count 179 MPV 8.0 D Absolute Neuts (auto) Neutrophils % Neutrophils % (Manual) Band Neutrophils % Lymphocytes % Lymphocytes % (Manual) Monocytes % Monocytes % (Manual) Eosinophils % Eosinophils % (Manual) Basophils % Platelet Estimate Retic Count PT with INR INR Sodium Potassium Chloride Carbon Dioxide Anion Gap BUN Creatinine Creat Clearance w eGFR POC Glucometer Random Glucose Serum Osmolality Lactic Acid Calcium Magnesium Total Bilirubin Direct Bilirubin AST ALT Alkaline Phosphatase LD Total Total Protein Albumin Urine Color Urine Appearance Urine pH Ur Specific [place] Urine Protein Urine Glucose (UA) Urine Ketones Urine Blood Urine Nitrite Urine Bilirubin Urine Urobilinogen Ur Leukocyte Esterase Urine RBC Urine WBC Urine Bacteria Urine Osmolality Ur Random Sodium 40 Urine Creatinine 93.7 Crossmatch Patient seen and examined. General: weak, unable to lift off bed Lungs: CTA CV: S1, S2 Abd: softer (s/p lebron placement), not distended, not tender; no CVA tenderness ; +lebron RLE: Tense swelling from hip to knee, more pronounced from this morning; water- filled blister on anterior thigh; Hemovac dark sanguinous fluid; surgical dressing soaked through Stat cbc: Hgb 7.3; was 8.3 this morning Lactic acid pending Notified surgical team. ANNABELLE Milligan came to bedside. 6:20pm Plan Transfer to ICU 2U PRBC on standby; do not transfuse at this time per Dr. Miranda; blood bank will keep units on standby; repeat cbc q4h INR 2.5; per Dr. Miranda, no Vit K or Factor IV at this time; hold all further anti-coagulation Stat CT of abdomen, pelvis, left lower extremity done, pending read Keep Dr. Miranda aware of results Physical Examination Vital Signs: Vital Signs Temperature 98.4 F 09/29/18 16:24 Pulse Rate 91 H 09/29/18 16:24 Respiratory Rate 18 09/29/18 16:24 Blood Pressure 124/56 L 09/29/18 16:24 O2 Sat by Pulse Oximetry (%) 97 09/29/18 16:24 Labs: CBC, BMP 09/29/18 07:04
[2018-09-29 17:26] LABS: HEMOGLOBIN 7.3 GM/dl (11.7-16.9)
[2018-09-29] MEDS ORDERED: WARFARIN NA 5 MG TABLET (UD) PO SCH (18:00)
[2018-09-29] MEDS ORDERED: WARFARIN NA 2 MG TABLET (UD) PO SCH (18:00)
--- NOTE | 2018-09-29 21:14 | CONSULT ---
Consultation: REQUESTING PROVIDER: CONSULT REQUEST: We have been asked to medically evaluate this patient for ( hypotension and upper GI bleed). HISTORY OF PRESENT ILLNESS: Patient is an 87 year-old male presented to the [facility] ED on 09/26/18 for an elective left total hip arthroplasty for left hip degenerative joint disease. Procedure was uncomplicated. Post op Day 1 he was hypotensive to 95/48 mmHg which improved with IV fluids. POD 2 His Hb dropped from 10.3 (baseline) to 7.7 g/dl . 2 PRBC was given with improvement in H/H. POD 3 Today they noticed more blood coming out from DENISSE drain about 100 ml Dark red colored urine was noticed in the lebron. Stat CT abdomen/Pelvis was done to r/o retroperitoeneal bleed and CT of lower ext was done. Results still pending. Patient was then sent to [facility] ICU for further evaluation and treatment. Upon arrival to the ICU, assessed the patient. He reports he has back pain, otherwise ROS is negative. Vitals: BP 130/62 mmHg,HR 90bpm,96 %spo2. RR 16. 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 5 days prior to surgery, Eliquis was stopped and Lovenox was started stopped a day prior to the surgery. PAST MEDICAL HISTORY: HTN not on meds, Type II NIDDM, COPD and bronchiectasis, CKD, OA of spine and joints, s/p spine surgery and right hip replacement. ALLERGIES: Lisinopril PAST SURGICAL HISTORY: As above SOCIAL HISTORY: Smoking: Denies Alcohol: Occasional Drugs: Denies OCCUPATION: Retired [employer] (worked at [employer]). REVIEW OF SYSTEMS: CONSTITUTIONAL: Absent: fever, chills, diaphoresis, generalized weakness, malaise, loss of appetite, weight change HEENT: Absent: rhinorrhea, nasal congestion, throat pain, throat swelling, difficulty swallowing, mouth swelling, ear pain, eye pain, visual changes CARDIOVASCULAR: Absent: chest pain, syncope, palpitations, irregular heart rate, lightheadedness , peripheral edema RESPIRATORY: Absent: cough, shortness of breath, dyspnea with exertion, orthopnea, wheezing, stridor, hemoptysis GASTROINTESTINAL: Absent: abdominal pain, abdominal distension, nausea, vomiting, diarrhea, constipation, melena, hematochezia GENITOURINARY: Absent: dysuria, frequency, urgency, hesitancy, hematuria, flank pain, genital pain MUSCULOSKELETAL: Present: Lower back pain. Absent: myalgia, arthralgia, joint swelling, neck pain SKIN: Absent: rash, itching, pallor HEMATOLOGIC/IMMUNOLOGIC: Absent: easy bleeding, easy bruising, lymphadenopathy, frequent infections ENDOCRINE: Absent: unexplained weight gain, unexplained weight loss, heat intolerance, cold intolerance NEUROLOGIC: Absent: headache, focal weakness or paresthesias, dizziness, unsteady gait, seizure, mental status changes, bladder or bowel incontinence PSYCHIATRIC: Absent: anxiety, depression, suicidal or homicidal ideation, hallucinations. PHYSICAL EXAMINATION Vital Signs - 24 hr 09/28/18 09/28/18 09/29/18 22:00 22:01 02:00 Temperature 98.3 F 97.7 F Pulse Rate 91 H 87 Respiratory 19 19 Rate Blood Pressure 103/57 L 123/62 O2 Sat by Pulse 96 97 Oximetry (%) 09/29/18 09/29/18 09/29/18 06:00 09:11 10:00 Temperature 98.4 F 98.3 F Pulse Rate 88 99 H Respiratory 19 19 17 Rate Blood Pressure 116/57 L 128/61 O2 Sat by Pulse 94 L 94 L 97 Oximetry (%) 09/29/18 09/29/18 09/29/18 12:30 14:00 16:24 Temperature 99.1 F 98.9 F 98.4 F Pulse Rate 97 H 91 H Respiratory 18 18 Rate Blood Pressure 143/63 124/56 L O2 Sat by Pulse 98 97 Oximetry (%) 09/29/18 18:00 Temperature 98.0 F Pulse Rate 99 H Respiratory 19 Rate Blood Pressure 132/58 L O2 Sat by Pulse Oximetry (%) GENERAL: Elderly male, lying in bed, Awake, alert, and fully oriented, in no acute distress, Lebron in place, DENISSE drain. EYES: EOM intact, pallor +, no icterus. NECK: No JVD LUNGS: B/L lungs clear, no added sounds. HEART: Regular rate and rhythm, normal S1 and S2 without murmur. ABDOMEN: Soft, nontender, no organomegaly. MUSCULOSKELETAL: Left hip: Surgical dressing minimally soaked with blood. UPPER EXTREMITIES: No peripheral edema. LOWER EXTREMITIES: Left hip: Surgical dressing minimally soaked with blood. No peripheral edema. NEUROLOGICAL: No facial droop. Normal speech. PSYCHIATRIC: Cooperative. Good eye contact. Appropriate mood and affect. SKIN: Warm, dry, normal turgor, no rashes or lesions noted. Laboratory Results - last 24 hr 09/27/18 09/29/18 09/29/18 14:20 06:39 07:04 WBC 11.0 H RBC 2.77 L Hgb 8.3 L Hct 25.1 L MCV 90.5 MCH 29.8 MCHC 32.9 RDW 14.3 Plt Count 156 MPV 9.1 Absolute Neuts (auto) 8.4 Neutrophils % Checkroom Chief Neutrophils % (Manual) 86.0 H Band Neutrophils % No Result Required. Lymphocytes % Checkroom Chief Lymphocytes % (Manual) 8.0 Monocytes % Checkroom Chief Monocytes % (Manual) 4 Eosinophils % Checkroom Chief Eosinophils % (Manual) 2.0 Basophils % Checkroom Chief Platelet Estimate Adequate Retic Count PT with INR INR Sodium Potassium Chloride Carbon Dioxide Anion Gap BUN Creatinine Creat Clearance w eGFR POC Glucometer 201 Random Glucose Serum Osmolality Lactic Acid Calcium Magnesium Total Bilirubin Direct Bilirubin AST ALT Alkaline Phosphatase LD Total Total Protein Albumin Urine Color Urine Appearance Urine pH Ur Specific [place] Urine Protein Urine Glucose (UA) Urine Ketones Urine Blood Urine Nitrite Urine Bilirubin Urine Urobilinogen Ur Leukocyte Esterase Urine RBC Urine WBC Urine Bacteria Urine Osmolality Ur Random Sodium Urine Creatinine Blood Type A POSITIVE Antibody Screen Negative Crossmatch See Detail 09/29/18 09/29/18 09/29/18 07:04 07:04 11:15 WBC RBC Hgb Hct MCV MCH MCHC RDW Plt Count MPV Absolute Neuts (auto) Neutrophils % Neutrophils % (Manual) Band Neutrophils % Lymphocytes % Lymphocytes % (Manual) Monocytes % Monocytes % (Manual) Eosinophils % Eosinophils % (Manual) Basophils % Platelet Estimate Retic Count PT with INR 27.5 H INR 2.50 H Sodium 136 Potassium 4.1 Chloride 107 Carbon Dioxide 20 L Anion Gap 9 BUN 34 H Creatinine 1.6 H Creat Clearance w eGFR 41.29 POC Glucometer Random Glucose 221 H Serum Osmolality 301 Lactic Acid Calcium 7.3 L Magnesium 2.2 Total Bilirubin 1.5 H Direct Bilirubin AST 17 ALT 9 L Alkaline Phosphatase 32 L LD Total Total Protein 4.8 L Albumin 2.4 L Urine Color Urine Appearance Urine pH Ur Specific [place] Urine Protein Urine Glucose (UA) Urine Ketones Urine Blood Urine Nitrite Urine Bilirubin Urine Urobilinogen Ur Leukocyte Esterase Urine RBC Urine WBC Urine Bacteria Urine Osmolality Ur Random Sodium Urine Creatinine Blood Type Antibody Screen Crossmatch 09/29/18 09/29/18 09/29/18 11:19 11:19 11:19 WBC RBC Hgb Hct MCV MCH MCHC RDW Plt Count MPV Absolute Neuts (auto) Neutrophils % Neutrophils % (Manual) Band Neutrophils % Lymphocytes % Lymphocytes % (Manual) Monocytes % Monocytes % (Manual) Eosinophils % Eosinophils % (Manual) Basophils % Platelet Estimate Retic Count 1.92 H PT with INR INR Sodium Potassium Chloride Carbon Dioxide Anion Gap BUN Creatinine Creat Clearance w eGFR POC Glucometer Random Glucose Serum Osmolality Lactic Acid 1.6 Calcium Magnesium Total Bilirubin Direct Bilirubin 0.2 AST ALT Alkaline Phosphatase LD Total 147 Total Protein Albumin Urine Color Urine Appearance Urine pH Ur Specific [place] Urine Protein Urine Glucose (UA) Urine Ketones Urine Blood Urine Nitrite Urine Bilirubin Urine Urobilinogen Ur Leukocyte Esterase Urine RBC Urine WBC Urine Bacteria Urine Osmolality Ur Random Sodium Urine Creatinine Blood Type Antibody Screen Crossmatch 09/29/18 09/29/18 09/29/18 12:40 12:40 12:40 WBC RBC Hgb Hct MCV MCH MCHC RDW Plt Count MPV Absolute Neuts (auto) Neutrophils % Neutrophils % (Manual) Band Neutrophils % Lymphocytes % Lymphocytes % (Manual) Monocytes % Monocytes % (Manual) Eosinophils % Eosinophils % (Manual) Basophils % Platelet Estimate Retic Count PT with INR INR Sodium Potassium Chloride Carbon Dioxide Anion Gap BUN Creatinine Creat Clearance w eGFR POC Glucometer Random Glucose Serum Osmolality Lactic Acid Calcium Magnesium Total Bilirubin Direct Bilirubin AST ALT Alkaline Phosphatase LD Total Total Protein Albumin Urine Color Dark Urine Appearance Cloudy Urine pH 5.5 Ur Specific [place] 1.020 Urine Protein 1+ H Urine Glucose (UA) Negative Urine Ketones Trace Urine Blood 3+ H Urine Nitrite Negative Urine Bilirubin Negative Urine Urobilinogen 0.2 Ur Leukocyte Esterase Negative Urine RBC >100 Urine WBC 5-10 Urine Bacteria 4+ Urine Osmolality 427 Ur Random Sodium Urine Creatinine 93.7 Blood Type Antibody Screen Crossmatch 09/29/18 09/29/18 09/29/18 12:40 16:44 16:44 WBC 11.7 H RBC 2.51 L Hgb 7.3 L Hct 22.2 L MCV 88.7 MCH 29.1 MCHC 32.8 RDW 14.4 Plt Count 179 MPV 8.0 D Absolute Neuts (auto) Neutrophils % Neutrophils % (Manual) Band Neutrophils % Lymphocytes % Lymphocytes % (Manual) Monocytes % Monocytes % (Manual) Eosinophils % Eosinophils % (Manual) Basophils % Platelet Estimate Retic Count PT with INR INR Sodium Potassium Chloride Carbon Dioxide Anion Gap BUN Creatinine Creat Clearance w eGFR POC Glucometer Random Glucose Serum Osmolality Lactic Acid 1.5 Calcium Magnesium Total Bilirubin Direct Bilirubin AST ALT Alkaline Phosphatase LD Total Total Protein Albumin Urine Color Urine Appearance Urine pH Ur Specific [place] Urine Protein Urine Glucose (UA) Urine Ketones Urine Blood Urine Nitrite Urine Bilirubin Urine Urobilinogen Ur Leukocyte Esterase Urine RBC Urine WBC Urine Bacteria Urine Osmolality Ur Random Sodium 40 Urine Creatinine Blood Type Antibody Screen Crossmatch Active Medications Generic Name Dose Route Start Last Admin Trade Name Freq PRN Reason Stop Dose Admin Al Hydroxide/Mg Hydroxide 30 ml 09/26/18 10:44 Mylanta Oral Suspension - PO Q4H PRN DYSPEPSIA Atorvastatin Calcium 20 mg 09/26/18 22:00 09/28/18 21:18 Lipitor - PO 20 mg HS NEETA Administration Sodium Chloride 1,000 mls @ 100 mls/hr 09/29/18 18:19 09/29/18 18:23 Normal Saline - IV 100 mls/hr ASDIR NEETA Administration Insulin Aspart 0 units 09/26/18 16:30 09/29/18 11:00 Novolog Vial SQ Not Given ACHS NEETA Protocol Magnesium Hydroxide 30 ml 09/26/18 10:44 09/29/18 12:30 Milk Of Magnesia - PO 30 ml PRN PRN Administration CONSTIPATION Ondansetron HCl 4 mg 09/26/18 10:44 09/26/18 11:50 Zofran Injection IVPUSH 4 mg Q6H PRN Administration NAUSEA Oxycodone HCl 5 mg 09/26/18 11:32 09/29/18 18:32 Roxicodone - PO 5 mg Q3H PRN Administration PAIN LEVEL 1-5 Oxycodone HCl 10 mg 09/26/18 11:32 09/27/18 21:12 Roxicodone - PO 10 mg Q3H PRN Administration PAIN LEVEL 6-10 Pantoprazole Sodium 40 mg 09/27/18 10:00 09/29/18 10:00 Protonix - PO 40 mg DAILY NEETA Administration Senna/Docusate Sodium 2 tablet 09/26/18 22:00 09/29/18 10:00 Pericolace - PO 2 tablet BID NEETA Administration CT lower ext CT without contrast: 1. S/P total left hip replacement. 2. Swelling of the left thigh musculature about the hip joint consistent with intramuscular hemorrhage without a discrete hematoma. Clinical correlation and follow-up recommended. CT abdomen/Pelvis without contrast: Limited study with no evidence of retroperitoneal bleed or acute pathology. ASSESSMENT/PLAN: Patient is an 87 year old male with significant past medical history of HTN, DM , COPD and bronchiectasis, CKD, OA of spine and joints, DVT presented to the [facility] ED on 09/26/18 for an elective left total hip arthroplasty for left hip degenerative joint disease was hypotensive resolved with IV fluids, bleeding from the DENISSE drain, drop in H/H so sent to [facility] ICU for closer monitoring. # Acute blood loss normocytic anemia Most likely acute blood loss is due to recent anticoagulation. Pt is on Eliquis for DVT in 2017 and switched to Warfarin as it was expensive. 5 days prior to surgery, Eliquis was stopped and Lovenox was started, last dose a day prior to the surgery. 2 PRBC was given yesterday. Repeat H/H today is 02/05 from 7.10/07.2 1 PRBC to be given now, recheck CBC and transfuse if below [address] CT without contrast was done which showed intramuscular hemorrhage without a discrete hematoma CT abd/pelvis showed no evidence of retroperitoneal bleed After the report came back, informed Dr. Miranda through message, awaiting for his response. # Left hip degenerative joint disease s/p elective left total hip arthroplasty -POD 3 DENISSE drain putting out 120 + 214 in 24 hrs. Lebron: 700 ml red colored urine PT tomorrow Pain control # Leukocytosis WBC 12, could be reactive. No fever. # ASHA creatinine 1.6 (baseline 1.3) IV NS @ 100mls Avoid nephrotoxic drugs. # Hypertension-controlled # DM Insulin sliding scale. Finger stick glucose monitoring. Watch for hypoglycemic episodes. # HLD Atorvastatin 20mg # FEN IV NS @ 100 mls.hr Electrolytes WNL Diabetic diet # Prophylaxis For DVT: SCds, no chemical prophylaxis FoR GI: Protonix 40 mg # Code Status: Full Code # Dispo: Admitted in ICU. Duration of stay unknown. Illness, Investigation and plan of care explained to the patient. He verbalized understanding. Marina Villarreal PGY-3 ICU resident. Dispo: We will continue to follow the patient. Thank you for this consultative opportunity. Visit type - Emergency Visit Emergency Visit: Yes ED Registration Date: 09/26/18 Care time: The patient presented to the Emergency Department on the above date and was hospitalized for further evaluation of their emergent condition. - New Patient This patient is new to me today: Yes Date on this admission: 09/29/18 - Critical Care Critical Care patient: Yes Total Critical Care Time (in minutes): 35 Critical Care Statement: The care of this patient involved high complexity decision making to prevent further life threatening deterioration of the patient 's condition and/or to evaluate & treat vital organ system(s) failure or risk of failure.
[2018-09-29] MEDS: ATORVASTATIN CA 20 MG TABLET (FP) PO SCH (21:53)
[2018-09-29 22:31] LABS: MCH 29.9 pg (25.7-33.7); MCHC 33.3 g/dl (32.0-35.9); MEAN CELL VOLUME 89.8 fl (80-96); MEAN PLT VOLUME 8.3 fl (7.5-11.1); PLATELET COUNT 180 K/MM3 (134-434); RBC 2.34 M/mm3 (4.00-5.60); RDW 15.2 % (11.9-15.9); WHITE BLOOD COUNT 12.4 K/mm3 (4.0-10.0)
[2018-09-29 22:32] LABS: BASO % 0.2 % (0-2.0); EOS % 0.4 % (0-4.5); LYMPH % 13.3 % (8-40); NEUT % 77.1 % (42.8-82.8)
[2018-09-30] MEDS: INSULIN (NOVOLOG) ASPART 100 UNITS/ML 10ML VIAL SQ SCH ×3 (06:59→17:40)
[2018-09-30 08:31] LABS: HEMATOCRIT 26.2 % (35.4-49); HEMOGLOBIN 9.1 GM/dL (11.7-16.9); MCH 31.1 pg (25.7-33.7); MCHC 34.7 g/dl (32.0-35.9); MEAN CELL VOLUME 89.5 fl (80-96); PLATELET COUNT 171 K/MM3 (134-434); RBC 2.93 M/mm3 (4.00-5.60); RDW 14.2 % (11.9-15.9); WHITE BLOOD COUNT 11.3 K/mm3 (4.0-10.0)
[2018-09-30 09:25] LABS: ANION GAP 7 MMOL/L (8-16); BLOOD UREA NITROGEN 25 mg/dl (7-18); CALCIUM 7.5 mg/dl (8.5-10); CHLORIDE 111 mmol/L (98-107); CO2 23 mmol/L (21-32); CREATININE 0.9 mg/dl (0.55-1.3); GLUCOSE,RANDOM 204 mg/dl (74-106); POTASSIUM 4.1 mmol/L (3.5-5.1); SODIUM 141 mmol/L (136-145)
[2018-09-30 09:26] LABS: ALBUMIN 2.2 g/dl (3.4-5.0); ALK PHOS 36 U/L (45-117); BILIRUBIN,DIRECT 0.3 mg/dL (0.0-0.2); BILIRUBIN,TOTAL 1.1 mg/dl (0.2-1); MAGNESIUM 2.6 mg/dL (1.8-2.4); PHOSPHOROUS 2.1 mg/dl (2.5-4.9); SGOT/AST 18 U/L (15-37); SGPT/ALT 13 U/L (13-61)
[2018-09-30] MEDS: SENNOSIDES/DOCUSATE COMBO (SENNA PLUS) TABLET (UD) PO SCH ×2 (09:37→22:22)
[2018-09-30] MEDS: PANTOPRAZOLE 40 MG TABLET (FP) PO SCH (09:38)
[2018-09-30] MEDS: oxyCODONE HCL 5 MG TABLET PO PRN ×2 (09:38→22:27)
--- NOTE | 2018-09-30 10:36 | PN ---
Progress Note (short form) - Note Progress Note: 87yo M s/p Left THR, transferred to ICU at [place] for anemia. Pt was given 1 unit overnight. Pt currently A&O at bedside, denies dizziness or weakness. Complains of Left hip pain but otherwise stable. Pt had CT scan of the LLE that shows post surgical changes, no acute bleeding. Last Vital Signs Temp Pulse Resp BP Pulse Ox 99.0 F 86 25 H 129/68 96 09/30/18 08:00 09/30/18 08:00 09/30/18 08:00 09/30/18 08:00 09/29/18 21:00 CBC, BMP 09/30/18 08:00 09/30/18 08:00 PE: Gen: A&O X3 Resp: breathing comfortably LLE: shows no weakness or numbness, Incision is clean with no erythema, some serosanguinous drainage. Drain in place with serosanguinous drainage. Output: 10ml Problem List - Problems (1) Degenerative joint disease of left hip Assessment/Plan: Plan -Pt appears stable at this time, will continue to watch as no signs of acute bleeding at this time. -trend Hgb, pt appears to have appropriately bumped from transfusion last night -regular diet -OOB with PT Case discussed with Dr. Miranda who agrees. Code(s): M16.12 - UNILATERAL PRIMARY OSTEOARTHRITIS, LEFT HIP
[2018-09-30 10:55] LABS: INR 2.72 (0.83-1.09); PROTHROMBIN TIME (PATIENT) 32.4 SEC (9.7-13.0)
--- NOTE | 2018-09-30 11:45 | PN ---
Physical Exam: SUBJECTIVE: Patient seen and examined this AM. He states he is still having some pain at the surgical site and around the left hip, which is improved with pain medication. He has been working with physical therapy without complication. OBJECTIVE: Vital Signs Period Temp Pulse Resp BP Sys/Faria Pulse Ox Last 24 Hr 98.0 F-99.1 F 84-100 18-25 116-143/56-69 96-98 GEN: A&O, no acute distress HEENT: moist mucus membranes NECK: supple HEART: RRR. no murmurs noted LUNGS: CTA b/l, no wheezes noted ABDOMEN: Soft, nontender, normoactive bowel sounds EXTREMITIES: 1+ edema in the proximal LLE. 2+ pulses. no calf tenderness Laboratory Results - last 24 hr 09/27/18 09/29/18 09/29/18 14:20 07:04 11:15 WBC Corrected WBC (auto) RBC Hgb Hct MCV MCH MCHC RDW Plt Count MPV Absolute Neuts (auto) Absolute Lymphs (auto) Absolute Monos (auto) Absolute Eos (auto) Absolute Basos (auto) Add Manual Diff Neutrophils % Neutrophils % (Manual) 86.0 H Band Neutrophils % No Result Required. Lymphocytes % Lymphocytes % (Manual) 8.0 Monocytes % Monocytes % (Manual) 4 Eosinophils % Eosinophils % (Manual) 2.0 Basophils % Nucleated RBC % Manual Slide Review Platelet Estimate Adequate Platelet Comment Normal RBC Morphology Retic Count PT with INR INR Sodium Potassium Chloride Carbon Dioxide Anion Gap BUN Creatinine Creat Clearance w eGFR POC Glucometer Random Glucose Serum Osmolality 301 Lactic Acid Calcium Phosphorus Magnesium Total Bilirubin Direct Bilirubin AST ALT Alkaline Phosphatase LD Total Total Protein Albumin Urine Color Urine Appearance Urine pH Ur Specific [place] Urine Protein Urine Glucose (UA) Urine Ketones Urine Blood Urine Nitrite Urine Bilirubin Urine Urobilinogen Ur Leukocyte Esterase Urine RBC Urine WBC Urine Bacteria Urine Osmolality Ur Random Sodium Urine Creatinine Blood Type A POSITIVE Antibody Screen Negative Crossmatch See Detail 09/29/18 09/29/18 09/29/18 11:19 11:19 11:19 WBC Corrected WBC (auto) RBC Hgb Hct MCV MCH MCHC RDW Plt Count MPV Absolute Neuts (auto) Absolute Lymphs (auto) Absolute Monos (auto) Absolute Eos (auto) Absolute Basos (auto) Add Manual Diff Neutrophils % Neutrophils % (Manual) Band Neutrophils % Lymphocytes % Lymphocytes % (Manual) Monocytes % Monocytes % (Manual) Eosinophils % Eosinophils % (Manual) Basophils % Nucleated RBC % Manual Slide Review Platelet Estimate Platelet Comment Normal RBC Morphology Retic Count 1.92 H PT with INR INR Sodium Potassium Chloride Carbon Dioxide Anion Gap BUN Creatinine Creat Clearance w eGFR POC Glucometer Random Glucose Serum Osmolality Lactic Acid 1.6 Calcium Phosphorus Magnesium Total Bilirubin Direct Bilirubin 0.2 AST ALT Alkaline Phosphatase LD Total 147 Total Protein Albumin Urine Color Urine Appearance Urine pH Ur Specific [place] Urine Protein Urine Glucose (UA) Urine Ketones Urine Blood Urine Nitrite Urine Bilirubin Urine Urobilinogen Ur Leukocyte Esterase Urine RBC Urine WBC Urine Bacteria Urine Osmolality Ur Random Sodium Urine Creatinine Blood Type Antibody Screen Crossmatch 09/29/18 09/29/18 09/29/18 12:40 12:40 12:40 WBC Corrected WBC (auto) RBC Hgb Hct MCV MCH MCHC RDW Plt Count MPV Absolute Neuts (auto) Absolute Lymphs (auto) Absolute Monos (auto) Absolute Eos (auto) Absolute Basos (auto) Add Manual Diff Neutrophils % Neutrophils % (Manual) Band Neutrophils % Lymphocytes % Lymphocytes % (Manual) Monocytes % Monocytes % (Manual) Eosinophils % Eosinophils % (Manual) Basophils % Nucleated RBC % Manual Slide Review Platelet Estimate Platelet Comment Normal RBC Morphology Retic Count PT with INR INR Sodium Potassium Chloride Carbon Dioxide Anion Gap BUN Creatinine Creat Clearance w eGFR POC Glucometer Random Glucose Serum Osmolality Lactic Acid Calcium Phosphorus Magnesium Total Bilirubin Direct Bilirubin AST ALT Alkaline Phosphatase LD Total Total Protein Albumin Urine Color Dark Urine Appearance Cloudy Urine pH 5.5 Ur Specific [place] 1.020 Urine Protein 1+ H Urine Glucose (UA) Negative Urine Ketones Trace Urine Blood 3+ H Urine Nitrite Negative Urine Bilirubin Negative Urine Urobilinogen 0.2 Ur Leukocyte Esterase Negative Urine RBC >100 Urine WBC 5-10 Urine Bacteria 4+ Urine Osmolality 427 Ur Random Sodium Urine Creatinine 93.7 Blood Type Antibody Screen Crossmatch 09/29/18 09/29/18 09/29/18 12:40 16:44 16:44 WBC 11.7 H Corrected WBC (auto) RBC 2.51 L Hgb 7.3 L Hct 22.2 L MCV 88.7 MCH 29.1 MCHC 32.8 RDW 14.4 Plt Count 179 MPV 8.0 D Absolute Neuts (auto) Absolute Lymphs (auto) Absolute Monos (auto) Absolute Eos (auto) Absolute Basos (auto) Add Manual Diff Neutrophils % Neutrophils % (Manual) Band Neutrophils % Lymphocytes % Lymphocytes % (Manual) Monocytes % Monocytes % (Manual) Eosinophils % Eosinophils % (Manual) Basophils % Nucleated RBC % Manual Slide Review Platelet Estimate Platelet Comment Normal RBC Morphology Retic Count PT with INR INR Sodium Potassium Chloride Carbon Dioxide Anion Gap BUN Creatinine Creat Clearance w eGFR POC Glucometer Random Glucose Serum Osmolality Lactic Acid 1.5 Calcium Phosphorus Magnesium Total Bilirubin Direct Bilirubin AST ALT Alkaline Phosphatase LD Total Total Protein Albumin Urine Color Urine Appearance Urine pH Ur Specific [place] Urine Protein Urine Glucose (UA) Urine Ketones Urine Blood Urine Nitrite Urine Bilirubin Urine Urobilinogen Ur Leukocyte Esterase Urine RBC Urine WBC Urine Bacteria Urine Osmolality Ur Random Sodium 40 Urine Creatinine Blood Type Antibody Screen Crossmatch 09/29/18 09/29/18 09/29/18 20:30 22:17 22:30 WBC Cancelled 12.4 H Corrected WBC (auto) Cancelled RBC Cancelled 2.34 L Hgb Cancelled 7.0 L Hct Cancelled 21.0 L MCV Cancelled 89.8 MCH Cancelled 29.9 MCHC Cancelled 33.3 RDW Cancelled 15.2 Plt Count Cancelled 180 MPV Cancelled 8.3 Absolute Neuts (auto) Cancelled 9.5 H Absolute Lymphs (auto) Cancelled Absolute Monos (auto) Cancelled Absolute Eos (auto) Cancelled Absolute Basos (auto) Cancelled Add Manual Diff Cancelled Neutrophils % Cancelled 77.1 Neutrophils % (Manual) Band Neutrophils % Lymphocytes % Cancelled 13.3 Lymphocytes % (Manual) Monocytes % Cancelled 9.0 Monocytes % (Manual) Eosinophils % Cancelled 0.4 Eosinophils % (Manual) Basophils % Cancelled 0.2 Nucleated RBC % Cancelled Manual Slide Review Cancelled Platelet Estimate Cancelled Platelet Comment Cancelled Normal RBC Morphology Cancelled Retic Count PT with INR INR Sodium Potassium Chloride Carbon Dioxide Anion Gap BUN Creatinine Creat Clearance w eGFR POC Glucometer 243 Random Glucose Serum Osmolality Lactic Acid Calcium Phosphorus Magnesium Total Bilirubin Direct Bilirubin AST ALT Alkaline Phosphatase LD Total Total Protein Albumin Urine Color Urine Appearance Urine pH Ur Specific [place] Urine Protein Urine Glucose (UA) Urine Ketones Urine Blood Urine Nitrite Urine Bilirubin Urine Urobilinogen Ur Leukocyte Esterase Urine RBC Urine WBC Urine Bacteria Urine Osmolality Ur Random Sodium Urine Creatinine Blood Type Antibody Screen Crossmatch 09/30/18 09/30/18 09/30/18 05:41 08:00 08:00 WBC 11.3 H Corrected WBC (auto) RBC 2.93 L Hgb 9.1 L Hct 26.2 L D MCV 89.5 MCH 31.1 MCHC 34.7 RDW 14.2 Plt Count 171 MPV 8.0 Absolute Neuts (auto) Absolute Lymphs (auto) Absolute Monos (auto) Absolute Eos (auto) Absolute Basos (auto) Add Manual Diff Neutrophils % Neutrophils % (Manual) Band Neutrophils % Lymphocytes % Lymphocytes % (Manual) Monocytes % Monocytes % (Manual) Eosinophils % Eosinophils % (Manual) Basophils % Nucleated RBC % Manual Slide Review Platelet Estimate Platelet Comment Normal RBC Morphology Retic Count PT with INR 32.40 H INR 2.72 H Sodium Potassium Chloride Carbon Dioxide Anion Gap BUN Creatinine Creat Clearance w eGFR POC Glucometer 192 Random Glucose Serum Osmolality Lactic Acid Calcium Phosphorus Magnesium Total Bilirubin Direct Bilirubin AST ALT Alkaline Phosphatase LD Total Total Protein Albumin Urine Color Urine Appearance Urine pH Ur Specific [place] Urine Protein Urine Glucose (UA) Urine Ketones Urine Blood Urine Nitrite Urine Bilirubin Urine Urobilinogen Ur Leukocyte Esterase Urine RBC Urine WBC Urine Bacteria Urine Osmolality Ur Random Sodium Urine Creatinine Blood Type Antibody Screen Crossmatch 09/30/18 08:00 WBC Corrected WBC (auto) RBC Hgb Hct MCV MCH MCHC RDW Plt Count MPV Absolute Neuts (auto) Absolute Lymphs (auto) Absolute Monos (auto) Absolute Eos (auto) Absolute Basos (auto) Add Manual Diff Neutrophils % Neutrophils % (Manual) Band Neutrophils % Lymphocytes % Lymphocytes % (Manual) Monocytes % Monocytes % (Manual) Eosinophils % Eosinophils % (Manual) Basophils % Nucleated RBC % Manual Slide Review Platelet Estimate Platelet Comment Normal RBC Morphology Retic Count PT with INR INR Sodium 141 Potassium 4.1 Chloride 111 H Carbon Dioxide 23 Anion Gap 7 L BUN 25 H Creatinine 0.9 Creat Clearance w eGFR 80.20 POC Glucometer Random Glucose 204 H Serum Osmolality Lactic Acid Calcium 7.5 L Phosphorus 2.1 L Magnesium 2.6 H Total Bilirubin 1.1 H Direct Bilirubin 0.3 H AST 18 ALT 13 Alkaline Phosphatase 36 L LD Total Total Protein 5.0 L Albumin 2.2 L Urine Color Urine Appearance Urine pH Ur Specific [place] Urine Protein Urine Glucose (UA) Urine Ketones Urine Blood Urine Nitrite Urine Bilirubin Urine Urobilinogen Ur Leukocyte Esterase Urine RBC Urine WBC Urine Bacteria Urine Osmolality Ur Random Sodium Urine Creatinine Blood Type Antibody Screen Crossmatch Active Medications Generic Name Dose Route Start Last Admin Trade Name Freq PRN Reason Stop Dose Admin Al Hydroxide/Mg Hydroxide 30 ml 09/26/18 10:44 Mylanta Oral Suspension - PO Q4H PRN DYSPEPSIA Atorvastatin Calcium 20 mg 09/26/18 22:00 09/29/18 21:53 Lipitor - PO 20 mg HS NEETA Administration Sodium Chloride 1,000 mls @ 100 mls/hr 09/29/18 18:19 09/29/18 18:23 Normal Saline - IV 100 mls/hr ASDIR NEETA Administration Insulin Aspart 0 units 09/26/18 16:30 09/30/18 06:59 Novolog Vial SQ 2 units ACHS NEETA Administration Protocol Magnesium Hydroxide 30 ml 09/26/18 10:44 09/29/18 12:30 Milk Of Magnesia - PO 30 ml PRN PRN Administration CONSTIPATION Ondansetron HCl 4 mg 09/26/18 10:44 09/26/18 11:50 Zofran Injection IVPUSH 4 mg Q6H PRN Administration NAUSEA Oxycodone HCl 5 mg 09/26/18 11:32 09/29/18 18:32 Roxicodone - PO 5 mg Q3H PRN Administration PAIN LEVEL 1-5 Oxycodone HCl 10 mg 09/26/18 11:32 09/30/18 09:38 Roxicodone - PO 10 mg Q3H PRN Administration PAIN LEVEL 6-10 Pantoprazole Sodium 40 mg 09/27/18 10:00 09/30/18 09:38 Protonix - PO 40 mg DAILY NEETA Administration Senna/Docusate Sodium 2 tablet 09/26/18 22:00 09/30/18 09:37 Pericolace - PO 2 tablet BID NEETA Administration ASSESSMENT/PLAN: Patient is an 87 year old male with significant past medical history of HTN, DM , COPD and bronchiectasis, CKD, OA of spine and joints, DVT presented to the [facility] ED on 09/26/18 for an elective left total hip arthroplasty for left hip degenerative joint disease was hypotensive resolved with IV fluids, bleeding from the DENISSE drain, drop in H/H so sent to [facility] for closer monitoring. POST-OP -Surgical case uncomplicated as per surgery -Pain control with Oxycodone -H/H steady decline last few days, given PRBCs with appropriate response overnight CT Abd/Pelv noted without retroperitoneal bleed CT LE noted with blood pooling in the musculature but no significant hematoma Monitor Drain output Discuss with surgery to restart AC as pt with hx of DVT and H/H currently stable NEURO -No neurological deficits CARDIO -Hx of DVT On Warfarin at home, converted to Lovenox preop which was restarted post-op however now held with drop in H/H -HLD continue home lipitor 20 mg PO HS PULMONARY -no respiratory compromise at this time GI -bowel movements since surgery, tolerating diet ENDOCRINE -NIDDM BGMs and Insulin sliding scale for glycemic control PROPHYLAXIS -Discuss with surgery about restarting AC -TEDs SCDs FEN -NS @ 100 cc/hr -monitor and replete -Diabetic diet DISPOSITION Stable for transfer to Med/Surg Visit type - Emergency Visit Emergency Visit: No - New Patient This patient is new to me today: Yes Date on this admission: 09/30/18 - Critical Care Critical Care patient: Yes Total Critical Care Time (in minutes): 35 Critical Care Statement: The care of this patient involved high complexity decision making to prevent further life threatening deterioration of the patient 's condition and/or to evaluate & treat vital organ system(s) failure or risk of failure.
--- NOTE | 2018-09-30 12:18 | PN ---
Teaching Attending Note Name of Resident: Milton Momin ATTENDING PHYSICIAN STATEMENT I saw and evaluated the patient. I reviewed the resident's note and discussed the case with the resident. I agree with the resident's findings and plan as documented. SUBJECTIVE: Patient seen and examined in the ICU. Awake and alert. Discomfort at the left hip at the surgical site. About to be medicate by RN. No CP or SOB. Appears blood loss is in the soft tissues. No evidence of GI bleeding. Intake & Output 09/27/18 09/28/18 09/29/18 09/30/18 23:59 23:59 23:59 23:59 Intake Total 3430 2796 2391 1098 Output Total 460 1020 1564 905 Balance 2970 1776 827 193 Weight 164 lb Last Vital Signs Temp Pulse Resp BP Pulse Ox 98.6 F 93 H 21 H 122/69 96 09/30/18 10:00 09/30/18 10:00 09/30/18 10:00 09/30/18 10:00 09/29/18 21:00 Active Medications Al Hydroxide/Mg Hydroxide (Mylanta Oral Suspension -) 30 ml PO Q4H PRN PRN Reason: DYSPEPSIA Atorvastatin Calcium (Lipitor -) 20 mg PO HS NEETA Last Admin: 09/29/18 21:53 Dose: 20 mg Sodium Chloride (Normal Saline -) 1,000 mls @ 100 mls/hr IV ASDIR NEETA Last Admin: 09/29/18 18:23 Dose: 100 mls/hr Insulin Aspart (Novolog Vial) 0 units SQ ACHS NEETA; Protocol Last Admin: 09/30/18 06:59 Dose: 2 units Magnesium Hydroxide (Milk Of Magnesia -) 30 ml PO PRN PRN PRN Reason: CONSTIPATION Last Admin: 09/29/18 12:30 Dose: 30 ml Ondansetron HCl (Zofran Injection) 4 mg IVPUSH Q6H PRN PRN Reason: NAUSEA Last Admin: 09/26/18 11:50 Dose: 4 mg Oxycodone HCl (Roxicodone -) 5 mg PO Q3H PRN PRN Reason: PAIN LEVEL 1-5 Last Admin: 09/29/18 18:32 Dose: 5 mg Oxycodone HCl (Roxicodone -) 10 mg PO Q3H PRN PRN Reason: PAIN LEVEL 6-10 Last Admin: 09/30/18 09:38 Dose: 10 mg Pantoprazole Sodium (Protonix -) 40 mg PO DAILY [facility] Last Admin: 09/30/18 09:38 Dose: 40 mg Senna/Docusate Sodium (Pericolace -) 2 tablet PO BID [facility] Last Admin: 09/30/18 09:37 Dose: 2 tablet GENERAL: Elderly male, lying in bed, Awake, alert, and fully oriented, mildly uncomfortable due to pain. EYES: EOM intact, pallor +, no icterus. NECK: No JVD LUNGS: B/L lungs clear, no added sounds. HEART: Regular rate and rhythm, normal S1 and S2 without murmur. ABDOMEN: Soft, nontender, no organomegaly. MUSCULOSKELETAL: Left hip: Surgical dressing minimally soaked with blood. UPPER EXTREMITIES: No peripheral edema. LOWER EXTREMITIES: Left hip: Surgical dressing minimally soaked with blood. No peripheral edema. NEUROLOGICAL: No facial droop. Normal speech. PSYCHIATRIC: Cooperative. Good eye contact. Appropriate mood and affect. SKIN: Warm, dry, normal turgor, no rashes or lesions noted. Laboratory Results - last 24 hr 09/27/18 09/29/18 09/29/18 14:20 07:04 11:15 WBC Corrected WBC (auto) RBC Hgb Hct MCV MCH MCHC RDW Plt Count MPV Absolute Neuts (auto) Absolute Lymphs (auto) Absolute Monos (auto) Absolute Eos (auto) Absolute Basos (auto) Add Manual Diff Neutrophils % Neutrophils % (Manual) 86.0 H Band Neutrophils % No Result Required. Lymphocytes % Lymphocytes % (Manual) 8.0 Monocytes % Monocytes % (Manual) 4 Eosinophils % Eosinophils % (Manual) 2.0 Basophils % Nucleated RBC % Manual Slide Review Platelet Estimate Adequate Platelet Comment Normal RBC Morphology Retic Count PT with INR INR Sodium Potassium Chloride Carbon Dioxide Anion Gap BUN Creatinine Creat Clearance w eGFR POC Glucometer Random Glucose Serum Osmolality 301 Lactic Acid Calcium Phosphorus Magnesium Total Bilirubin Direct Bilirubin AST ALT Alkaline Phosphatase Total Protein Albumin Urine Color Urine Appearance Urine pH Ur Specific [place] Urine Protein Urine Glucose (UA) Urine Ketones Urine Blood Urine Nitrite Urine Bilirubin Urine Urobilinogen Ur Leukocyte Esterase Urine RBC Urine WBC Urine Bacteria Urine Osmolality Ur Random Sodium Urine Creatinine Blood Type A POSITIVE Antibody Screen Negative Crossmatch See Detail 09/29/18 09/29/18 09/29/18 11:19 11:19 12:40 WBC Corrected WBC (auto) RBC Hgb Hct MCV MCH MCHC RDW Plt Count MPV Absolute Neuts (auto) Absolute Lymphs (auto) Absolute Monos (auto) Absolute Eos (auto) Absolute Basos (auto) Add Manual Diff Neutrophils % Neutrophils % (Manual) Band Neutrophils % Lymphocytes % Lymphocytes % (Manual) Monocytes % Monocytes % (Manual) Eosinophils % Eosinophils % (Manual) Basophils % Nucleated RBC % Manual Slide Review Platelet Estimate Platelet Comment Normal RBC Morphology Retic Count 1.92 H PT with INR INR Sodium Potassium Chloride Carbon Dioxide Anion Gap BUN Creatinine Creat Clearance w eGFR POC Glucometer Random Glucose Serum Osmolality Lactic Acid 1.6 Calcium Phosphorus Magnesium Total Bilirubin Direct Bilirubin AST ALT Alkaline Phosphatase Total Protein Albumin Urine Color Dark Urine Appearance Cloudy Urine pH 5.5 Ur Specific [place] 1.020 Urine Protein 1+ H Urine Glucose (UA) Negative Urine Ketones Trace Urine Blood 3+ H Urine Nitrite Negative Urine Bilirubin Negative Urine Urobilinogen 0.2 Ur Leukocyte Esterase Negative Urine RBC >100 Urine WBC 5-10 Urine Bacteria 4+ Urine Osmolality Ur Random Sodium Urine Creatinine Blood Type Antibody Screen Crossmatch 09/29/18 09/29/18 09/29/18 12:40 12:40 12:40 WBC Corrected WBC (auto) RBC Hgb Hct MCV MCH MCHC RDW Plt Count MPV Absolute Neuts (auto) Absolute Lymphs (auto) Absolute Monos (auto) Absolute Eos (auto) Absolute Basos (auto) Add Manual Diff Neutrophils % Neutrophils % (Manual) Band Neutrophils % Lymphocytes % Lymphocytes % (Manual) Monocytes % Monocytes % (Manual) Eosinophils % Eosinophils % (Manual) Basophils % Nucleated RBC % Manual Slide Review Platelet Estimate Platelet Comment Normal RBC Morphology Retic Count PT with INR INR Sodium Potassium Chloride Carbon Dioxide Anion Gap BUN Creatinine Creat Clearance w eGFR POC Glucometer Random Glucose Serum Osmolality Lactic Acid Calcium Phosphorus Magnesium Total Bilirubin Direct Bilirubin AST ALT Alkaline Phosphatase Total Protein Albumin Urine Color Urine Appearance Urine pH Ur Specific [place] Urine Protein Urine Glucose (UA) Urine Ketones Urine Blood Urine Nitrite Urine Bilirubin Urine Urobilinogen Ur Leukocyte Esterase Urine RBC Urine WBC Urine Bacteria Urine Osmolality 427 Ur Random Sodium 40 Urine Creatinine 93.7 Blood Type Antibody Screen Crossmatch 09/29/18 09/29/18 09/29/18 16:44 16:44 20:30 WBC 11.7 H Cancelled Corrected WBC (auto) Cancelled RBC 2.51 L Cancelled Hgb 7.3 L Cancelled Hct 22.2 L Cancelled MCV 88.7 Cancelled MCH 29.1 Cancelled MCHC 32.8 Cancelled RDW 14.4 Cancelled Plt Count 179 Cancelled MPV 8.0 D Cancelled Absolute Neuts (auto) Cancelled Absolute Lymphs (auto) Cancelled Absolute Monos (auto) Cancelled Absolute Eos (auto) Cancelled Absolute Basos (auto) Cancelled Add Manual Diff Cancelled Neutrophils % Cancelled Neutrophils % (Manual) Band Neutrophils % Lymphocytes % Cancelled Lymphocytes % (Manual) Monocytes % Cancelled Monocytes % (Manual) Eosinophils % Cancelled Eosinophils % (Manual) Basophils % Cancelled Nucleated RBC % Cancelled Manual Slide Review Cancelled Platelet Estimate Cancelled Platelet Comment Cancelled Normal RBC Morphology Cancelled Retic Count PT with INR INR Sodium Potassium Chloride Carbon Dioxide Anion Gap BUN Creatinine Creat Clearance w eGFR POC Glucometer Random Glucose Serum Osmolality Lactic Acid 1.5 Calcium Phosphorus Magnesium Total Bilirubin Direct Bilirubin AST ALT Alkaline Phosphatase Total Protein Albumin Urine Color Urine Appearance Urine pH Ur Specific [place] Urine Protein Urine Glucose (UA) Urine Ketones Urine Blood Urine Nitrite Urine Bilirubin Urine Urobilinogen Ur Leukocyte Esterase Urine RBC Urine WBC Urine Bacteria Urine Osmolality Ur Random Sodium Urine Creatinine Blood Type Antibody Screen Crossmatch 09/29/18 09/29/18 09/30/18 22:17 22:30 05:41 WBC 12.4 H Corrected WBC (auto) RBC 2.34 L Hgb 7.0 L Hct 21.0 L MCV 89.8 MCH 29.9 MCHC 33.3 RDW 15.2 Plt Count 180 MPV 8.3 Absolute Neuts (auto) 9.5 H Absolute Lymphs (auto) Absolute Monos (auto) Absolute Eos (auto) Absolute Basos (auto) Add Manual Diff Neutrophils % 77.1 Neutrophils % (Manual) Band Neutrophils % Lymphocytes % 13.3 Lymphocytes % (Manual) Monocytes % 9.0 Monocytes % (Manual) Eosinophils % 0.4 Eosinophils % (Manual) Basophils % 0.2 Nucleated RBC % Manual Slide Review Platelet Estimate Platelet Comment Normal RBC Morphology Retic Count PT with INR INR Sodium Potassium Chloride Carbon Dioxide Anion Gap BUN Creatinine Creat Clearance w eGFR POC Glucometer 243 192 Random Glucose Serum Osmolality Lactic Acid Calcium Phosphorus Magnesium Total Bilirubin Direct Bilirubin AST ALT Alkaline Phosphatase Total Protein Albumin Urine Color Urine Appearance Urine pH Ur Specific [place] Urine Protein Urine Glucose (UA) Urine Ketones Urine Blood Urine Nitrite Urine Bilirubin Urine Urobilinogen Ur Leukocyte Esterase Urine RBC Urine WBC Urine Bacteria Urine Osmolality Ur Random Sodium Urine Creatinine Blood Type Antibody Screen Crossmatch 09/30/18 09/30/18 09/30/18 08:00 08:00 08:00 WBC 11.3 H Corrected WBC (auto) RBC 2.93 L Hgb 9.1 L Hct 26.2 L D MCV 89.5 MCH 31.1 MCHC 34.7 RDW 14.2 Plt Count 171 MPV 8.0 Absolute Neuts (auto) Absolute Lymphs (auto) Absolute Monos (auto) Absolute Eos (auto) Absolute Basos (auto) Add Manual Diff Neutrophils % Neutrophils % (Manual) Band Neutrophils % Lymphocytes % Lymphocytes % (Manual) Monocytes % Monocytes % (Manual) Eosinophils % Eosinophils % (Manual) Basophils % Nucleated RBC % Manual Slide Review Platelet Estimate Platelet Comment Normal RBC Morphology Retic Count PT with INR 32.40 H INR 2.72 H Sodium 141 Potassium 4.1 Chloride 111 H Carbon Dioxide 23 Anion Gap 7 L BUN 25 H Creatinine 0.9 Creat Clearance w eGFR 80.20 POC Glucometer Random Glucose 204 H Serum Osmolality Lactic Acid Calcium 7.5 L Phosphorus 2.1 L Magnesium 2.6 H Total Bilirubin 1.1 H Direct Bilirubin 0.3 H AST 18 ALT 13 Alkaline Phosphatase 36 L Total Protein 5.0 L Albumin 2.2 L Urine Color Urine Appearance Urine pH Ur Specific [place] Urine Protein Urine Glucose (UA) Urine Ketones Urine Blood Urine Nitrite Urine Bilirubin Urine Urobilinogen Ur Leukocyte Esterase Urine RBC Urine WBC Urine Bacteria Urine Osmolality Ur Random Sodium Urine Creatinine Blood Type Antibody Screen Crossmatch ASSESSMENT/PLAN: Acute anemia due to blood loss POD# 4: Left hip arthroplasty HTN DM COPD Bronchiectasis CKD OA of spine and joints No evidence of PE DVT previously on AC AHSA Normal transfusion thresholds Incentive Spirometry O2 as needed Pain control PO as tolerated BD TX PRN AC when cleared by surgery Floor OOB to chair / PT Dr Avalos
[2018-09-30] MEDS ORDERED: ONDANSETRON 4 MG/2 ML VIAL IVPUSH PRN (15:57)
[2018-09-30] MEDS ORDERED: oxyCODONE HCL 5 MG TABLET PO PRN (15:57)
[2018-09-30] MEDS ORDERED: MAG HYDROX/AL HYDROX/SIMETH 30 ML UNIT-DOSE CUP PO PRN (15:57)
[2018-09-30] MEDS ORDERED: MAGNESIUM HYDROX 2400MG/30ML ORAL SUSPENSION 30 ML CUP PO PRN (15:57)
--- NOTE | 2018-09-30 16:00 | PN ---
Progress Note (short form) - Note Progress Note: Called to see pt by RN due to saturated Aquacel dressing. Pt sitting in bed watching TV. Reports some leaking from L hip dressing. Dressing removed with clot/serosanguinous drainage on Aquacel. No drainage from wound upon palpation. Incision c/d/i, ashtyn in place, no erythema, no drainage noted. L thigh/hip area with 2+ edema, mildly ttp. Serous Blister adjacent to HV dressing. Mild inner thigh pain to palpation, no calf swelling or ttp. Pt concerned about DVT/PE due to his past h/o occurrence after spinal surgery, his L thigh swelling and being off of AC. Requesting venous duplex. Venous duplex b/l le's ordered, spoke with layout technician who will call for pt shortly. Hospitalist aware to f/u read d/w attending, Dr Miranda who agrees with above
--- NOTE | 2018-09-30 16:37 | PN ---
Progress Note (short form) - Note Progress Note: c/o LLE pain. states pain is similar to when he had DVT. denies CP, SOB, fever, chills, N/V/C/D Current Medications Generic Name Dose Route Start Last Admin Trade Name Freq PRN Reason Stop Dose Admin Al Hydroxide/Mg Hydroxide 30 ml 09/30/18 15:57 Mylanta Oral Suspension - PO Q4H PRN DYSPEPSIA Atorvastatin Calcium 20 mg 09/30/18 22:00 Lipitor - PO HS NEETA Sodium Chloride 1,000 mls @ 100 mls/hr 09/30/18 15:57 Normal Saline - IV ASDIR NEETA Insulin Aspart 0 units 09/30/18 16:30 Novolog Vial SQ ACHS NEETA Protocol Magnesium Hydroxide 30 ml 09/30/18 15:57 Milk Of Magnesia - PO PRN PRN CONSTIPATION Ondansetron HCl 4 mg 09/30/18 15:57 Zofran Injection IVPUSH Q6H PRN NAUSEA Oxycodone HCl 5 mg 09/30/18 15:57 Roxicodone - PO Q3H PRN PAIN LEVEL 1-5 Oxycodone HCl 10 mg 09/30/18 15:57 Roxicodone - PO Q3H PRN PAIN LEVEL 6-10 Pantoprazole Sodium 40 mg 10/01/18 10:00 Protonix - PO DAILY [facility] Potassium Phos/Sodium Phos 1 packet 09/30/18 22:00 Phos-Nak Packet - PO 10/01/18 22:01 BID NEETA Senna/Docusate Sodium 2 tablet 09/30/18 22:00 Pericolace - PO BID [facility] Last Vital Signs Temp Pulse Resp BP Pulse Ox 98.5 F 81 20 129/65 96 09/30/18 14:00 09/30/18 14:00 09/30/18 14:00 09/30/18 14:00 09/29/18 21:00 General NAD CV S1 S2 RRR no murmur/rub/gallop Lungs CTA anteriorly ABdomen soft NT/ND Extremities LLE thigh is swollen with non pitting edema. tender with hemovac in place. no swelling or tenderness to calves. aquacel dressing has blood noted on it CBCD WBC 11.3 K/mm3 (4.0-10.0) H 09/30/18 08:00 RBC 2.93 M/mm3 (4.00-5.60) L 09/30/18 08:00 Hgb 9.1 GM/dL (11.7-16.9) L 09/30/18 08:00 Hct 26.2 % (35.4-49) L D 09/30/18 08:00 MCV 89.5 fl (80-96) 09/30/18 08:00 MCHC 34.7 g/dl (32.0-35.9) 09/30/18 08:00 RDW 14.2 % (11.9-15.9) 09/30/18 08:00 Plt Count 171 K/MM3 (134-434) 09/30/18 08:00 MPV 8.0 fl (7.5-11.1) 09/30/18 08:00 CMP Sodium 141 mmol/L (136-145) 09/30/18 08:00 Potassium 4.1 mmol/L (3.5-5.1) 09/30/18 08:00 Chloride 111 mmol/L (98-107) H 09/30/18 08:00 Carbon Dioxide 23 mmol/L (21-32) 09/30/18 08:00 Anion Gap 7 MMOL/L (8-16) L 09/30/18 08:00 BUN 25 mg/dl (7-18) H 09/30/18 08:00 Creatinine 0.9 mg/dl (0.55-1.3) 09/30/18 08:00 Creat Clearance w eGFR 80.20 (>60) 09/30/18 08:00 Calcium 7.5 mg/dl (8.5-10) L 09/30/18 08:00 Total Bilirubin 1.1 mg/dl (0.2-1) H 09/30/18 08:00 AST 18 U/L (15-37) 09/30/18 08:00 ALT 13 U/L (13-61) 09/30/18 08:00 Alkaline Phosphatase 36 U/L (45-117) L 09/30/18 08:00 Total Protein 5.0 g/dl (6.4-8.2) L 09/30/18 08:00 Albumin 2.2 g/dl (3.4-5.0) L 09/30/18 08:00 Assessment and Plan 87 year-old male with a PMH significant for HTN on no meds, Type II NIDDM, COPD and bronchiectasis on no meds, CKD, OA of spine and joints, s/p spine surgery and right hip replacement. Now s/p left total hip arthroplasty earlier today with Dr. Miranda. Patient has h/o DVT, first episode s/p spine surgery 2016. pt was sent to [facility] due to drop in Hgb for closer monitoring in the ICU. 1. L hip degenerative disease- s/p Left total hip arthroplasty on 09/2018. with hemovac drain in place. L thigh looks larger than R. doppler pending to r/o DVT. further management per ortho. possible re-starting antiocoagulation. pain control 2. Acute blood loss anemia- s/p 4 units PRBC given this hospital course. continues to have significant bleeding at wound. coumadin was on hold for pending surgery and was placed on lovenox which is now being held. 3. hypophosphatemia- neutrphos 4. hx of B/L DVT- Dx 2017 after back surgery was initially on eliquis and then switched to coumadin due to cost restraints. states INR was checked regularly and stable. as per was checked for hypercoag workup but negative. (unclear then why on anticoagulation if provoked) should determine if testing was actually positive but will need 4 weeks due to recent surgery. 5. DM- hold oral agents. cont iss and BGM 6. COPD- no signs of acute exacerbation. 7. CKD- stable 8. DVT ppx- SCD. hold pharmacologic anticoagulation at this time 9. spoke with present at bedside. all questions answered. plan for RADHA when medically optimized. Dispo: We will continue to follow the patient. Thank you for this consultative opportunity. Visit type - Emergency Visit Emergency Visit: No - New Patient This patient is new to me today: Yes Date on this admission: 09/30/18 - Critical Care Critical Care patient: No - Discharge Referral Referred to [facility] Med P.C.: No
[2018-09-30] MEDS: ASPIRIN 81 MG CHEWABLE TABLETS PO SCH (20:58)
[2018-09-30] MEDS: WARFARIN NA 5 MG TABLET (UD) PO SCH (20:58)
[2018-09-30] MEDS: SODIUM CHLORIDE 1,000 ML IV SCH (20:58)
[2018-09-30] MEDS: ENOXAPARIN NA (PORCINE) 40 MG/0.4 ML DISP.SYRIN SQ SCH (22:22)
[2018-09-30] MEDS: ATORVASTATIN CA 20 MG TABLET (FP) PO SCH (22:22)
[2018-09-30] MEDS: NAPH,MB-DB/K PH,MBDB POWDER PACKET PO SCH (22:22)
[2018-10-01] MEDS: INSULIN (NOVOLOG) ASPART 100 UNITS/ML 10ML VIAL SQ SCH ×6 (01:04→21:41)
[2018-10-01] MEDS: SODIUM CHLORIDE 1,000 ML IV SCH ×2 (07:41→17:47)
[2018-10-01 07:59] LABS: BASO % 0.3 % (0-2.0); EOS % 3.3 % (0-4.5); HEMOGLOBIN 7.4 GM/dL (11.7-16.9); LYMPH % 18.6 % (8-40); MCH 31.4 pg (25.7-33.7); MCHC 35.3 g/dl (32.0-35.9); MEAN CELL VOLUME 88.8 fl (80-96); MEAN PLT VOLUME 7.8 fl (7.5-11.1); MONO % 10.2 % (3.8-10.2); NEUT % 67.6 % (42.8-82.8); PLATELET COUNT 173 K/MM3 (134-434); RBC 2.37 M/mm3 (4.00-5.60); RDW 13.9 % (11.9-15.9); WHITE BLOOD COUNT 9.8 K/mm3 (4.0-10.0)
[2018-10-01 08:04] LABS: ANION GAP 6 MMOL/L (8-16); BLOOD UREA NITROGEN 19 mg/dL (7-18); CALCIUM 7.1 mg/dL (8.5-10.1); CHLORIDE 112 mmol/L (98-107); CO2 24 mmol/L (21-32); CREATININE 0.8 mg/dL (0.55-1.3); GLUCOSE,RANDOM 206 mg/dL (74-106); PHOSPHOROUS 2.2 mg/dL (2.5-4.9); POTASSIUM 3.9 mmol/L (3.5-5.1); SODIUM 141 mmol/L (136-145)
--- NOTE | 2018-10-01 09:17 | PN ---
Physical Exam: SUBJECTIVE: Patient seen and examined. He has no complaints. He had urinary retention last night after removal of Gillis. Straight cath was done today and 950 cc drained. OBJECTIVE: Vital Signs Period Temp Pulse Resp BP Sys/Faria Pulse Ox Last 24 Hr 97.4 F-99.6 F 81-93 19-21 118-143/62-85 96 GENERAL: The patient is awake, alert, and fully oriented, in no acute distress. LUNGS: Breath sounds equal, clear to auscultation bilaterally, no wheezes, no crackles, no accessory muscle use. HEART: Regular rate and rhythm, S1, S2 without murmur, rub or gallop. ABDOMEN: Soft, nontender, nondistended, normoactive bowel sounds, no guarding, no rebound, no hepatosplenomegaly, no masses. EXTREMITIES: 2+ pulses, warm, well-perfused. (+) edema of right thigh. Laboratory Results - last 24 hr 09/29/18 09/30/18 09/30/18 11:19 08:00 08:00 WBC RBC Hgb Hct MCV MCH MCHC RDW Plt Count MPV Absolute Neuts (auto) Neutrophils % Lymphocytes % Monocytes % Eosinophils % Basophils % Nucleated RBC % Haptoglobin 263 H PT with INR 32.40 H INR 2.72 H Sodium 141 Potassium 4.1 Chloride 111 H Carbon Dioxide 23 Anion Gap 7 L BUN 25 H Creatinine 0.9 Creat Clearance w eGFR 80.20 POC Glucometer Random Glucose 204 H Calcium 7.5 L Phosphorus 2.1 L Magnesium 2.6 H Total Bilirubin 1.1 H Direct Bilirubin 0.3 H AST 18 ALT 13 Alkaline Phosphatase 36 L Total Protein 5.0 L Albumin 2.2 L 09/30/18 09/30/18 10/01/18 12:57 17:26 06:00 WBC 9.8 RBC 2.37 L Hgb 7.4 L Hct 21.0 L D MCV 88.8 MCH 31.4 MCHC 35.3 RDW 13.9 Plt Count 173 MPV 7.8 Absolute Neuts (auto) 6.6 Neutrophils % 67.6 Lymphocytes % 18.6 D Monocytes % 10.2 Eosinophils % 3.3 D Basophils % 0.3 Nucleated RBC % 0 Haptoglobin PT with INR INR Sodium Potassium Chloride Carbon Dioxide Anion Gap BUN Creatinine Creat Clearance w eGFR POC Glucometer 228 203 Random Glucose Calcium Phosphorus Magnesium Total Bilirubin Direct Bilirubin AST ALT Alkaline Phosphatase Total Protein Albumin 10/01/18 10/01/18 06:00 06:35 WBC RBC Hgb Hct MCV MCH MCHC RDW Plt Count MPV Absolute Neuts (auto) Neutrophils % Lymphocytes % Monocytes % Eosinophils % Basophils % Nucleated RBC % Haptoglobin PT with INR INR Sodium 141 Potassium 3.9 Chloride 112 H Carbon Dioxide 24 Anion Gap 6 L BUN 19 H Creatinine 0.8 Creat Clearance w eGFR 91.87 POC Glucometer 180 Random Glucose 206 H Calcium 7.1 L Phosphorus 2.2 L Magnesium Total Bilirubin Direct Bilirubin AST ALT Alkaline Phosphatase Total Protein Albumin Active Medications Generic Name Dose Route Start Last Admin Trade Name Freq PRN Reason Stop Dose Admin Al Hydroxide/Mg Hydroxide 30 ml 09/30/18 15:57 Mylanta Oral Suspension - PO Q4H PRN DYSPEPSIA Aspirin 81 mg 09/30/18 20:30 09/30/18 20:58 Asa - PO 10/02/18 10:01 81 mg DAILY NEETA Administration Atorvastatin Calcium 20 mg 09/30/18 22:00 09/30/18 22:22 Lipitor - PO 20 mg HS NEETA Administration Enoxaparin Sodium 40 mg 09/30/18 22:00 09/30/18 22:22 Lovenox - SQ 40 mg BID NEETA Administration Sodium Chloride 1,000 mls @ 100 mls/hr 09/30/18 15:57 10/01/18 07:41 Normal Saline - IV 100 mls/hr ASDIR NEETA Administration Insulin Aspart 0 units 09/30/18 16:30 10/01/18 06:36 Novolog Vial SQ 2 units ACHS NEETA Administration Protocol Magnesium Hydroxide 30 ml 09/30/18 15:57 Milk Of Magnesia - PO PRN PRN CONSTIPATION Ondansetron HCl 4 mg 09/30/18 15:57 Zofran Injection IVPUSH Q6H PRN NAUSEA Oxycodone HCl 5 mg 09/30/18 15:57 09/30/18 22:27 Roxicodone - PO 5 mg Q3H PRN Administration PAIN LEVEL 1-5 Oxycodone HCl 10 mg 09/30/18 15:57 Roxicodone - PO Q3H PRN PAIN LEVEL 6-10 Pantoprazole Sodium 40 mg 10/01/18 10:00 Protonix - PO DAILY [facility] Potassium Phos/Sodium Phos 1 packet 09/30/18 22:00 09/30/18 22:22 Phos-Nak Packet - PO 10/01/18 22:01 1 packet BID NEETA Administration Senna/Docusate Sodium 2 tablet 09/30/18 22:00 09/30/18 22:22 Pericolace - PO 2 tablet BID NEETA Administration Warfarin Sodium 5 mg 09/30/18 20:30 09/30/18 20:58 Coumadin - PO 10/02/18 18:01 5 mg DAILY@1800 NEETA Administration ASSESSMENT/PLAN: This is an 87 year old man with a history of HTN, type 2 DM, COPD, chronic bronchiectasis, CKD, OA who presented to the hospital for left total hip arthroplasty. 1. OA of left hip - s/p left total hip arthroplasty on 09/26 - Pain control - Physical therapy 2. DVT of left femoral, popliteal, posterior tibial veins - On Coumadin - INR 2.72 yesterday - Check INR today - if therapeutic, will discontinue Lovenox 3. Urinary retention - Start Flomax - Ambulation - Monitor for retention - Gillis cath if needed 4. Acute blood loss anemia - Transfused 4 units PRBC this admission - Hgb 7.4 today - continue to monitor 5. Hypophosphatemia - Continue Phos-NaK 6. History of B/L DVTs after back surgery 7. Type 2 DM - Continue Novolog sliding scale 8. COPD/chronic bronchiectasis - Stable 9. Acute kidney injury - Resolved Visit type - Emergency Visit Emergency Visit: No - New Patient This patient is new to me today: Yes Date on this admission: 10/01/18 - Critical Care Critical Care patient: No - Discharge Referral Referred to [facility] Med P.C.: No
[2018-10-01] MEDS: ASPIRIN 81 MG CHEWABLE TABLETS PO SCH (10:07)
[2018-10-01] MEDS: SENNOSIDES/DOCUSATE COMBO (SENNA PLUS) TABLET (UD) PO SCH ×2 (10:07→21:40)
[2018-10-01] MEDS: PANTOPRAZOLE 40 MG TABLET (FP) PO SCH (10:07)
[2018-10-01] MEDS: ENOXAPARIN NA (PORCINE) 40 MG/0.4 ML DISP.SYRIN SQ SCH (10:08)
[2018-10-01] MEDS: NAPH,MB-DB/K PH,MBDB POWDER PACKET PO SCH ×2 (10:08→21:43)
[2018-10-01 12:13] LABS: INR 3.21 (0.83-1.09); PROTHROMBIN TIME (PATIENT) 38.3 SEC (9.7-13.0)
[2018-10-01 14:10] LABS: ANISOCYTOSIS 2+; MACROCYTOSIS 0; OVALOCYTE 1+; PLATELET ESTIMATE NORMAL; TEAR DROP CELLS 1+
[2018-10-01] MEDS: WARFARIN NA 5 MG TABLET (UD) PO SCH (17:29)
[2018-10-01] MEDS: TAMSULOSIN HCL 0.4 MG CAP PO SCH (17:30)
[2018-10-01] MEDS: oxyCODONE HCL 5 MG TABLET PO PRN (17:30)
--- NOTE | 2018-10-01 17:51 | PN ---
Progress Note (short form) - Note Progress Note: POD#5 Post L THR POst op medical and urological problems noted. Awake and fully orientated No apatite C/O incisional pain mild calf tenderness Reluctant to get out of bed feels week. CVS Stable RESP no SOB No haemoptysis ABD Soft Wound mild serosang drainage Drain removed new dressing applied MSkeletal No NVD Left LE diffusely swollen.Feels heavy Mild calf tenderness No subsartorian tenderness INR 3 HT 7 PLAN Attempt at getting patient out of bed Treat DVT Warfarin started last night Lovenox started with baby aspirin to bridge until Warfain is appropriately functioning INR3 PT FWBAT Standard hip precautions Nursing Dry dressing changes Keep heals off the bed Pain mx ? for more blood and investigations for cause of the low Ht
[2018-10-01] MEDS: ATORVASTATIN CA 20 MG TABLET (FP) PO SCH (21:40)
[2018-10-02] MEDS: SODIUM CHLORIDE 1,000 ML IV SCH ×3 (04:59→22:51)
[2018-10-02] MEDS: INSULIN (NOVOLOG) ASPART 100 UNITS/ML 10ML VIAL SQ SCH ×4 (06:10→21:13)
[2018-10-02] MEDS: oxyCODONE HCL 5 MG TABLET PO PRN ×2 (06:47→16:41)
[2018-10-02 07:36] LABS: HEMATOCRIT 18.5 % (35.4-49); MCH 32.2 pg (25.7-33.7); MCHC 35.9 g/dl (32.0-35.9); MEAN CELL VOLUME 89.5 fl (80-96); MEAN PLT VOLUME 7.4 fl (7.5-11.1); PLATELET COUNT 209 K/MM3 (134-434); RBC 2.07 M/mm3 (4.00-5.60); RDW 13.8 % (11.9-15.9); WHITE BLOOD COUNT 9.3 K/mm3 (4.0-10.0)
[2018-10-02 07:53] LABS: ANION GAP 7 MMOL/L (8-16); BLOOD UREA NITROGEN 12 mg/dL (7-18); CALCIUM 7.1 mg/dL (8.5-10.1); CHLORIDE 109 mmol/L (98-107); CO2 25 mmol/L (21-32); CREATININE 0.6 mg/dL (0.55-1.3); GLUCOSE,RANDOM 194 mg/dL (74-106); MAGNESIUM 1.7 mg/dL (1.8-2.4); PHOSPHOROUS 2.1 mg/dL (2.5-4.9); POTASSIUM 3.1 mmol/L (3.5-5.1); SODIUM 140 mmol/L (136-145)
[2018-10-02 07:58] LABS: HEMOGLOBIN 6.7 GM/dL (11.7-16.9)
[2018-10-02] MEDS ORDERED: POTASSIUM CHLORIDE TABS 20 MEQ TABLET.ER (FP) PO ONE (08:00)
[2018-10-02] MEDS: TAMSULOSIN HCL 0.4 MG CAP PO SCH (08:15)
[2018-10-02] MEDS: KCL 10 MEQ IVPB 10 MEQ/100 ML INFUS.BAG IVPB SCH ×3 (08:15→11:33)
--- NOTE | 2018-10-02 08:41 | PN ---
Physical Exam: SUBJECTIVE: Patient seen and examined. He has no complaints. OBJECTIVE: Vital Signs Period Temp Pulse Resp BP Sys/Faria Pulse Ox Last 24 Hr 97.9 F-100.7 F 84-93 18-20 106-131/54-70 95-95 GENERAL: The patient is awake, alert, and fully oriented, in no acute distress. LUNGS: Breath sounds equal, clear to auscultation bilaterally, no wheezes, no crackles, no accessory muscle use. HEART: Regular rate and rhythm, S1, S2 without murmur, rub or gallop. ABDOMEN: Soft, nontender, nondistended, normoactive bowel sounds, no guarding, no rebound, no hepatosplenomegaly, no masses. EXTREMITIES: 2+ pulses, warm, well-perfused. (+) edema of left thigh. Laboratory Results - last 24 hr 09/27/18 10/01/18 10/01/18 14:20 06:00 11:15 WBC RBC Hgb Hct MCV MCH MCHC RDW Plt Count MPV Neutrophils % (Manual) 67.0 Band Neutrophils % 0.0 Lymphocytes % (Manual) 16.0 Monocytes % (Manual) 7 Eosinophils % (Manual) 3.0 Basophils % (Manual) 0.0 Myelocytes % (Man) 0 Promyelocytes % (Man) 0 Blast Cells % (Manual) 0 Metamyelocytes 0 Hypochromia 0 Platelet Estimate Normal Polychromasia 1+ Poikilocytosis 1+ Anisocytosis 2+ Microcytosis 2+ Macrocytosis 0 Spherocytes 1+ Tear Drop Cells 1+ Ovalocytes 1+ Beatriz Cells 1+ Acanthocytes (Spur) 1+ PT with INR 38.30 H INR 3.21 H Sodium Potassium Chloride Carbon Dioxide Anion Gap BUN Creatinine Creat Clearance w eGFR POC Glucometer Random Glucose Calcium Phosphorus Magnesium Blood Type A POSITIVE Antibody Screen Negative Crossmatch See Detail 10/01/18 10/01/18 10/01/18 11:57 17:38 21:39 WBC RBC Hgb Hct MCV MCH MCHC RDW Plt Count MPV Neutrophils % (Manual) Band Neutrophils % Lymphocytes % (Manual) Monocytes % (Manual) Eosinophils % (Manual) Basophils % (Manual) Myelocytes % (Man) Promyelocytes % (Man) Blast Cells % (Manual) Metamyelocytes Hypochromia Platelet Estimate Polychromasia Poikilocytosis Anisocytosis Microcytosis Macrocytosis Spherocytes Tear Drop Cells Ovalocytes Beatriz Cells Acanthocytes (Spur) PT with INR INR Sodium Potassium Chloride Carbon Dioxide Anion Gap BUN Creatinine Creat Clearance w eGFR POC Glucometer 207 227 184 Random Glucose Calcium Phosphorus Magnesium Blood Type Antibody Screen Crossmatch 10/02/18 10/02/18 10/02/18 05:25 06:00 06:00 WBC 9.3 RBC 2.07 L Hgb 6.7 L* Hct 18.5 L MCV 89.5 MCH 32.2 MCHC 35.9 RDW 13.8 Plt Count 209 D MPV 7.4 L Neutrophils % (Manual) Band Neutrophils % Lymphocytes % (Manual) Monocytes % (Manual) Eosinophils % (Manual) Basophils % (Manual) Myelocytes % (Man) Promyelocytes % (Man) Blast Cells % (Manual) Metamyelocytes Hypochromia Platelet Estimate Polychromasia Poikilocytosis Anisocytosis Microcytosis Macrocytosis Spherocytes Tear Drop Cells Ovalocytes Beatriz Cells Acanthocytes (Spur) PT with INR INR Sodium 140 Potassium 3.1 L Chloride 109 H Carbon Dioxide 25 Anion Gap 7 L BUN 12 Creatinine 0.6 Creat Clearance w eGFR 128.05 POC Glucometer 183 Random Glucose 194 H Calcium 7.1 L Phosphorus 2.1 L Magnesium 1.7 L Blood Type Antibody Screen Crossmatch Active Medications Generic Name Dose Route Start Last Admin Trade Name Freq PRN Reason Stop Dose Admin Al Hydroxide/Mg Hydroxide 30 ml 09/30/18 15:57 Mylanta Oral Suspension - PO Q4H PRN DYSPEPSIA Aspirin 81 mg 09/30/18 20:30 10/01/18 10:07 Asa - PO 10/02/18 10:01 81 mg DAILY NEETA Administration Atorvastatin Calcium 20 mg 09/30/18 22:00 10/01/18 21:40 Lipitor - PO 20 mg HS NEETA Administration Sodium Chloride 1,000 mls @ 100 mls/hr 09/30/18 15:57 10/02/18 04:59 Normal Saline - IV 100 mls/hr ASDIR NEETA Administration Potassium Chloride 10 meq in 100 mls @ 100 mls/hr 10/02/18 08:00 10/02/18 08: 15 Potassium Chloride 10 Meq Premix Ivpb - IVPB 10/02/18 10:59 100 mls/hr Q60M NEETA Administration Insulin Aspart 0 units 09/30/18 16:30 10/02/18 06:10 Novolog Vial SQ 2 units ACHS NEETA Administration Protocol Magnesium Hydroxide 30 ml 09/30/18 15:57 Milk Of Magnesia - PO PRN PRN CONSTIPATION Ondansetron HCl 4 mg 09/30/18 15:57 Zofran Injection IVPUSH Q6H PRN NAUSEA Oxycodone HCl 5 mg 09/30/18 15:57 10/02/18 06:47 Roxicodone - PO 5 mg Q3H PRN Administration PAIN LEVEL 1-5 Oxycodone HCl 10 mg 09/30/18 15:57 10/01/18 10:12 Roxicodone - PO 10 mg Q3H PRN Administration PAIN LEVEL 6-10 Pantoprazole Sodium 40 mg 10/01/18 10:00 10/01/18 10:07 Protonix - PO 40 mg DAILY NEETA Administration Potassium Phos/Sodium Phos 1 packet 10/02/18 10:00 Phos-Nak Packet - PO BID NEETA Senna/Docusate Sodium 2 tablet 09/30/18 22:00 10/01/18 21:40 Pericolace - PO 2 tablet BID NEETA Administration Tamsulosin HCl 0.4 mg 10/01/18 17:30 10/02/18 08:15 Flomax - PO 0.4 mg DAILY@0830 NEETA Administration Warfarin Sodium 5 mg 09/30/18 20:30 10/01/18 17:29 Coumadin - PO 10/02/18 18:01 5 mg DAILY@1800 NEETA Administration ASSESSMENT/PLAN: This is an 87 year old man with a history of HTN, type 2 DM, COPD, chronic bronchiectasis, CKD, OA who presented to the hospital for left total hip arthroplasty. 1. OA of left hip - s/p left total hip arthroplasty on 09/26 - Pain control - Physical therapy 2. DVT of left femoral, popliteal, posterior tibial veins - Lovenox discontinued - On Coumadin - dose based on INR 3. Urinary retention - Maintain Gillis until more ambulatory - Continue Flomax 4. Acute blood loss anemia - Transfused 4 units PRBC this admission - Hgb 6.7 today - will transfuse 2 units PRBCs 5. Hypokalemia - Replete potassium - Correct magnesium 6. Hypomagnesemia - Start Mag Ox 7. Hypophosphatemia - Continue Phos-NaK 8. History of B/L DVTs after back surgery 9. Type 2 DM - Continue Novolog sliding scale 10. COPD/chronic bronchiectasis - Stable 11. Acute kidney injury - Resolved Visit type - Emergency Visit Emergency Visit: No - New Patient This patient is new to me today: No - Critical Care Critical Care patient: No - Discharge Referral Referred to [facility] Med P.C.: No
[2018-10-02] MEDS: MAGNESIUM OXIDE 400 MG TABLET (FP) PO SCH ×2 (09:42→21:05)
[2018-10-02] MEDS: NAPH,MB-DB/K PH,MBDB POWDER PACKET PO SCH ×2 (09:42→21:06)
[2018-10-02] MEDS: PANTOPRAZOLE 40 MG TABLET (FP) PO SCH (09:42)
[2018-10-02] MEDS: SENNOSIDES/DOCUSATE COMBO (SENNA PLUS) TABLET (UD) PO SCH ×2 (09:42→21:06)
[2018-10-02] MEDS: ASPIRIN 81 MG CHEWABLE TABLETS PO SCH (09:52)
[2018-10-02 09:53] LABS: PROTHROMBIN TIME (PATIENT) 51.1 SEC (9.7-13.0)
[2018-10-02 10:46] LABS: INR 4.27 (0.83-1.09)
[2018-10-02] MEDS: ATORVASTATIN CA 20 MG TABLET (FP) PO SCH (21:06)
[2018-10-02] MEDS ORDERED: INSULIN (NOVOLOG) ASPART 100 UNITS/ML 10ML VIAL ONE (21:13)
[2018-10-02] MEDS ORDERED: ACETAMINOPHEN 325 MG TABLET (FP) PO ONE (23:10)
--- NOTE | 2018-10-02 23:34 | PN ---
Progress Note (short form) - Note Progress Note: Paged for temperature of 101.8 20 min after Pt. receiving 2nd unit of pRBC's today. VS: 115/56; 84; RR:18 @95% saturation. Pt. denies any shortness of breath , lightheadedness, or itchiness. PE: CTAB, RRR, nml S1,S2, no rashes or erythema around transfusion site or on arms bilaterally, Incision site visualized, no purulence, some discharge, unclear if it baseline amount of discharge or increased. Pt. does endorse wound dressing was changed earlier today. Pt. denies any changes in symptoms from earlier today. On chart review Pt. had temp to 100.7 today after first unit. Will stop transfusion, give Tylenol, order BCx., Type and Screen, UA, CMP and Uric Acid per Blood bank. At this time treating as a febrile non-hemolytic transfusion reaction, will avoid aspirin. Will d/c blood transfusion and reassess after lab results and fever abates. Pt. not in clinical distress at the moment and is hemodynamically stable.
[2018-10-03 01:18] LABS: BASO % 0.3 % (0-2.0); EOS % 3.5 % (0-4.5); HEMATOCRIT 22.9 % (35.4-49); HEMOGLOBIN 8.1 GM/dL (11.7-16.9); LYMPH % 15.5 % (8-40); MCHC 35.5 g/dl (32.0-35.9); MEAN CELL VOLUME 90.2 fl (80-96); MEAN PLT VOLUME 7.5 fl (7.5-11.1); MONO % 9.1 % (3.8-10.2); NEUT % 71.6 % (42.8-82.8); PLATELET COUNT 251 K/MM3 (134-434); RBC 2.54 M/mm3 (4.00-5.60); WHITE BLOOD COUNT 12.2 K/mm3 (4.0-10.0)
[2018-10-03 01:18] LABS: URINE APPEARANCE CLOUDY; URINE BILIRUBIN NEGATIVE (<2.0 mg/dL); URINE GLUCOSE (UA) NEGATIVE (NEGATIVE); URINE KETONE NEGATIVE (NEGATIVE); URINE LEUK ESTERASE 3+ (NEGATIVE); URINE NITRITE NEGATIVE (NEGATIVE); URINE PROTEIN 1+ (NEGATIVE); URINE UROBILINOGEN 4.0 E.U/dl mg/dL (0.2-1.0)
[2018-10-03 01:22] LABS: CALCIUM OXALATE CRYSTALS RARE /hpf (NONE SEEN); EPI CELLS RARE /HPF (FEW); URINE BACTERIA MANY /hpf (NONE SEEN); URINE MUCUS RARE
[2018-10-03 01:38] LABS: URINE COLOR YELLOW
[2018-10-03 01:43] LABS: ALBUMIN 1.8 g/dl (3.4-5.0); ALK PHOS 37 U/L (45-117); ANION GAP 7 MMOL/L (8-16); BILIRUBIN,TOTAL 1.5 mg/dL (0.2-1); BLOOD UREA NITROGEN 11 mg/dL (7-18); CALCIUM 7.1 mg/dL (8.5-10.1); CHLORIDE 108 mmol/L (98-107); CO2 24 mmol/L (21-32); CREATININE 0.6 mg/dL (0.55-1.3); GLUCOSE,RANDOM 170 mg/dL (74-106); POTASSIUM 3.9 mmol/L (3.5-5.1); SGOT/AST 33 U/L (15-37); SGPT/ALT 23 U/L (13-61); SODIUM 139 mmol/L (136-145); TOT PROT 4.6 g/dl (6.4-8.2)
[2018-10-03 04:00] LABS: ANISOCYTOSIS 1+; MACROCYTOSIS 1+; SMUDGE CELLS FEW
[2018-10-03 04:01] LABS: PLATELET ESTIMATE ADEQUATE
[2018-10-03] MEDS: INSULIN (NOVOLOG) ASPART 100 UNITS/ML 10ML VIAL SQ SCH ×4 (06:06→21:25)
[2018-10-03] MEDS: oxyCODONE HCL 5 MG TABLET PO PRN ×2 (06:48→14:22)
[2018-10-03 07:23] LABS: HEMATOCRIT 24.9 % (35.4-49); HEMOGLOBIN 8.6 GM/dL (11.7-16.9); MCH 31.5 pg (25.7-33.7); MCHC 34.7 g/dl (32.0-35.9); MEAN CELL VOLUME 90.7 fl (80-96); MEAN PLT VOLUME 6.9 fl (7.5-11.1); PLATELET COUNT 287 K/MM3 (134-434); RBC 2.74 M/mm3 (4.00-5.60); RDW 13.8 % (11.9-15.9); WHITE BLOOD COUNT 11.8 K/mm3 (4.0-10.0)
--- NOTE | 2018-10-03 07:41 | PN ---
Progress Note (short form) - Note Progress Note: POD 7, s/p L THR c/b acute blood loss anemia s/p 6 units prbc, L CFV/pop/PT veins Pt seen and examined. States he feels weak. Reports difficult weekend due to reinsertion of lebron catheter for urinary retention as well as additional transfusion due to decreasing h/h. States he developed a fever while receiving his second unit of blood yesterday (transfusion was aborted). Denies cp/sob, n/v /d. Vital Signs Temp 98.1 F 10/03/18 06:00 Pulse 81 10/03/18 06:00 Resp 20 10/03/18 06:00 BP 121/64 10/03/18 06:00 Pulse Ox 95 10/02/18 21:00 Intake & Output 10/02/18 10/02/18 10/03/18 11:59 23:59 11:59 Intake Total 300 1750 Output Total 1800 Balance 300 -50 Weight 189 lb 4.8 oz 186 lb Intake: IV 700 Normal Saline - 1,000 ml 700 @ 100 mls/hr IV ASDIR NEETA Rx#:[id number] IVPB 300 Oral 300 400 Packed Cells 350 Output: Urine 1800 Lebron 1800 Other: Voiding Method Indwelling Catheter Indwelling Catheter Bowel Movement No Weight Measurement Method Built [facility] Bedscale [facility] CBC, BMP 10/03/18 05:30 Gen: awake, alert, nad Resp: unlabored on RA, cta b/l anteriorly CV: rrr, s1s2 Abdo: soft, mildly distended, + bowel sounds Hip: L hip/upper thigh full but soft, dressing c/d/i. No ecchymosis visualized. Neuro: b/l le 5/5 dorsi/plantarflexion. SILT b/l A/P: 87 y/o M w/ PMHx HTN, type 2 DM, COPD, chronic bronchiectasis, CKD, OA now POD POD 7, s/p L THR c/b acute blood loss anemia s/p 6 units prbc, L CFV/pop/PT veins. 09/28: 2units prbc 09/30: 2 units prbc 10/01: HV removed by attending Events from weekend noted, pt w/ urinary retention requirin g reinsertion of lebron catheter. Hgb 6.7 yesterday, pt received 2 units prbc however spiked a fever of 100.7 20 mins after 2nd unit was initiated, transfusion aborted, pt given Tylenol, BCx's/Type and Screen/UA/CMP/Uric Acid sent (for febrile non- hemolytic transfusion reaction). Pt remained hemodynamically stable. Pt was initiated on Lovenox/ASA 81/Coumadin restarted, as duplex done Wednesday w/ new dvt L femoral/pop/PTV. All A/C d/c'ed due to drop in hgb requiring transfusion. No fevers overnight or this AM. WBC trendign down. UA from yesterday with + leukocyte esterase (culture ordered). -Monitor hgb -Trend INR, keep therapeutic -Continue Coumadin -Pain control -OOB w/ PT -Keep dressing c/d/i -F/U fever workup d/w attending, Dr Miranda
[2018-10-03 07:42] LABS: INR 3.37 (0.83-1.09); PROTHROMBIN TIME (PATIENT) 40.3 SEC (9.7-13.0)
[2018-10-03] MEDS: SODIUM CHLORIDE 1,000 ML IV SCH ×2 (08:05→17:28)
[2018-10-03 08:23] LABS: ANION GAP 7 MMOL/L (8-16); BLOOD UREA NITROGEN 11 mg/dL (7-18); CHLORIDE 109 mmol/L (98-107); CO2 26 mmol/L (21-32); CREATININE 0.7 mg/dL (0.55-1.3); GLUCOSE,RANDOM 155 mg/dL (74-106); MAGNESIUM 1.5 mg/dL (1.8-2.4); PHOSPHOROUS 1.6 mg/dL (2.5-4.9); POTASSIUM 3.8 mmol/L (3.5-5.1); SODIUM 141 mmol/L (136-145)
[2018-10-03 08:26] LABS: CALCIUM 6.8 mg/dL (8.5-10.1)
[2018-10-03] MEDS ORDERED: INSULIN (NOVOLOG) ASPART 100 UNITS/ML 10ML VIAL ONE (09:26)
[2018-10-03] MEDS: TAMSULOSIN HCL 0.4 MG CAP PO SCH (09:42)
[2018-10-03] MEDS: NAPH,MB-DB/K PH,MBDB POWDER PACKET PO SCH ×2 (09:42→21:18)
[2018-10-03] MEDS: PANTOPRAZOLE 40 MG TABLET (FP) PO SCH (09:43)
[2018-10-03] MEDS: MAGNESIUM OXIDE 400 MG TABLET (FP) PO SCH ×2 (09:43→21:18)
[2018-10-03] MEDS: SENNOSIDES/DOCUSATE COMBO (SENNA PLUS) TABLET (UD) PO SCH ×2 (09:43→21:19)
--- NOTE | 2018-10-03 13:09 | PN ---
Progress Note, Physician Chief Complaint: Feeling weak History of Present Illness: 87 yrs old man with H/O HTN, DVT on AC, T2DM, PAD s/p Fem-POP s/p Left THR Post OP day 7th complicated by Post procedure anemia received PRBC transfusion, H/H stable now, AC resumed, c/o weakness - Current Medication List Current Medications: Active Medications Al Hydroxide/Mg Hydroxide (Mylanta Oral Suspension -) 30 ml PO Q4H PRN PRN Reason: DYSPEPSIA Atorvastatin Calcium (Lipitor -) 20 mg PO HS [facility] Last Admin: 10/02/18 21:06 Dose: 20 mg Calcium Carbonate/Cholecalciferol (Os-Balbir 500+D -) 1 tab PO BID [facility] Sodium Chloride (Normal Saline -) 1,000 mls @ 100 mls/hr IV ASDIR [facility] Last Admin: 10/03/18 08:05 Dose: 100 mls/hr Insulin Aspart (Novolog Vial) 0 units SQ ACHS [facility]; Protocol Last Admin: 10/03/18 11:34 Dose: 4 units Magnesium Hydroxide (Milk Of Magnesia -) 30 ml PO PRN PRN PRN Reason: CONSTIPATION Magnesium Oxide (Mag-Ox -) 400 mg PO BID [facility] Last Admin: 10/03/18 09:43 Dose: 400 mg Ondansetron HCl (Zofran Injection) 4 mg IVPUSH Q6H PRN PRN Reason: NAUSEA Oxycodone HCl (Roxicodone -) 5 mg PO Q3H PRN PRN Reason: PAIN LEVEL 1-5 Last Admin: 10/03/18 06:48 Dose: 5 mg Oxycodone HCl (Roxicodone -) 10 mg PO Q3H PRN PRN Reason: PAIN LEVEL 6-10 Last Admin: 10/01/18 10:12 Dose: 10 mg Pantoprazole Sodium (Protonix -) 40 mg PO DAILY [facility] Last Admin: 10/03/18 09:43 Dose: 40 mg Potassium Phos/Sodium Phos (Phos-Nak Packet -) 1 packet PO BID [facility] Last Admin: 10/03/18 09:42 Dose: 1 packet Senna/Docusate Sodium (Pericolace -) 2 tablet PO BID [facility] Last Admin: 10/03/18 09:43 Dose: 2 tablet Tamsulosin HCl (Flomax -) 0.4 mg PO DAILY@0830 [facility] Last Admin: 10/03/18 09:42 Dose: 0.4 mg - Objective Vital Signs: Vital Signs Temperature 98.3 F 10/03/18 09:39 Pulse Rate 83 10/03/18 09:39 Respiratory Rate 18 10/03/18 09:39 Blood Pressure 114/57 L 10/03/18 09:39 O2 Sat by Pulse Oximetry (%) 95 10/02/18 21:00 Elderly man sick looking feeling weak HEENT: Mm moist anemia NECK: No JVd No [place]oit CHEST: CTA B/L CVS: S1S2 R ABD: No distention non tenderness EXT: Left Hip S/P THR LE [facility] + [employer]: AOx3 non focal Labs: CBC, BMP 10/03/18 05:30 10/03/18 06:00 INR, PTT INR 3.37 (0.83-1.09) H 10/03/18 05:30 Problem List - Problems (1) Loose total hip arthroplasty Assessment/Plan: Post Op day7th management as per Orthopedics pain control PT Code(s): T84.038A - MECHANICAL LOOSENING OF OTH INTERNAL PROSTHETIC JOINT, INIT ; Z96.649 - PRESENCE OF UNSPECIFIED ARTIFICIAL HIP JOINT (2) Postoperative anemia due to acute blood loss Assessment/Plan: Stable after blood transfusin anemia w/u Code(s): D62 - ACUTE POSTHEMORRHAGIC ANEMIA (3) HTN (hypertension) Assessment/Plan: Well controlled resume all home meds Code(s): I10 - ESSENTIAL (PRIMARY) HYPERTENSION (4) DVT (deep venous thrombosis) Assessment/Plan: on AC INR 3.7 F/U INR in am target INR 2-3 Code(s): I82.409 - ACUTE EMBOLISM AND THOMBOS UNSP DEEP VN UNSP LOWER EXTREMITY (5) Hypocalcemia Assessment/Plan: 6.1 corrected with albumin 8.7 add PO calcium ad vit D Code(s): E83.51 - HYPOCALCEMIA (6) Hypomagnesemia Assessment/Plan: On Netrophos F/U BMP in am Code(s): E83.42 - HYPOMAGNESEMIA (7) Hypophosphatemia Assessment/Plan: Repleted F/U Phosphate level in am Code(s): E83.39 - OTHER DISORDERS OF PHOSPHORUS METABOLISM (8) Groin rash Assessment/Plan: Nystatin topical skin care Code(s): R21 - RASH AND OTHER NONSPECIFIC SKIN ERUPTION (9) Malnutrition Assessment/Plan: albumin 1.8 will call nutrition consult. Code(s): E46 - UNSPECIFIED PROTEIN-CALORIE MALNUTRITION
[2018-10-03] MEDS: NYSTATIN POWDER 100,000 UNITS/GM - 15 GM TOPICAL POWDER TP SCH (17:27)
--- NOTE | 2018-10-03 19:50 | PN ---
Progress Note (short form) - Note Progress Note: Appears +++better Feels better Fever yesterday from transfusion WOund Serosang drainage LE Swelling less C/o calf tenderness no subsartorian tenderness No Dyspnoea,Coughing or hemoptysis INR 3X normal PLAN Stop all anticoagulation until INR 2 For DVT Rx Is there a roll for an IVC filter PT mobilize
[2018-10-03] MEDS: ATORVASTATIN CA 20 MG TABLET (FP) PO SCH (21:18)
[2018-10-03] MEDS: CALCIUM 500MG/VIT-D 200 UNITS COMBO TABLET (FP) PO SCH (21:18)
[2018-10-04] MEDS: INSULIN (NOVOLOG) ASPART 100 UNITS/ML 10ML VIAL SQ SCH ×4 (07:01→21:34)
[2018-10-04 07:54] LABS: BASO % 0.4 % (0-2.0); EOS % 2.6 % (0-4.5); HEMATOCRIT 23.6 % (35.4-49); HEMOGLOBIN 8.4 GM/dL (11.7-16.9); LYMPH % 14.9 % (8-40); MCH 32.1 pg (25.7-33.7); MCHC 35.5 g/dl (32.0-35.9); MEAN CELL VOLUME 90.3 fl (80-96); MEAN PLT VOLUME 7.1 fl (7.5-11.1); MONO % 8.4 % (3.8-10.2); NEUT % 73.7 % (42.8-82.8); PLATELET COUNT 336 K/MM3 (134-434); RBC 2.62 M/mm3 (4.00-5.60); RDW 14.5 % (11.9-15.9); WHITE BLOOD COUNT 11.1 K/mm3 (4.0-10.0)
--- NOTE | 2018-10-04 08:12 | PN ---
Progress Note (short form) - Note Progress Note: POD#8, s/p L THR c/b acute blood loss anemia s/p 6 units prbc. Pt seen and examined. States he feels ok but is lacking appetite. He walked with PT yesterday and is tolerating his diet. His pain is controlled and he denies any CP, SOB, N/V/D, fever or chills. Vital Signs Temp 98.9 F 10/04/18 06:00 Pulse 79 10/04/18 06:00 Resp 20 10/04/18 06:00 BP 127/61 10/04/18 06:00 Pulse Ox 95 10/03/18 21:00 Intake & Output 10/03/18 10/03/18 10/04/18 11:59 23:59 11:59 Intake Total 60 1200 Output Total 1600 500 Balance 60 -400 -500 Weight 186 lb 182 lb 3.2 oz Intake: IV 1200 Normal Saline - 1,000 ml 1200 @ 100 mls/hr IV ASDIR NEETA Rx#:[id number] Oral Supplement 60 Output: Urine 1600 500 Gillis 1600 500 Other: Voiding Method Indwelling Catheter Indwelling Catheter Bowel Movement Yes Yes # Bowel Movements 1 Weight Measurement Method Built in Bedscale Built in Bedscale CBC, BMP 10/04/18 06:10 10/04/18 06:10 PE: Gen: awake, alert, nad Resp: unlabored on RA, Hip: L hip/upper thigh with diffuse edema appropriate to status- soft, incision c/d/i with ashtyn in situ and surrounding tissue intact with no evidence of tracking erythema, or active d/c. Small skin tear on anterior thigh and lateral thigh just inferior to incision- both clean with no d/c, mild ecchymosis visualized just posterior and inferior to incision. Neuro: b/l le 5/5 dorsi/plantarflexion. LE compasrtments soft, supple and non- tender with +2 DP pulses. Problem List - Problems (1) Loose total hip arthroplasty Assessment/Plan: POD #8 Left SANTA with post op anemia improving s/p transfusion and L LE DVTs. Vital signs stable. -Admit to medicine -GI Consult, FOBT r/o GI bleed. -Monitor hgb -Trend INR, keep therapeutic -Continue to hold Coumadin per Dr Miranda -Pain control -OOB w/ PT -Keep dressing c/d/i -F/U fever workup -UTI abx per ID Evaluation and plan discussed with Dr Miranda Code(s): T84.038A - MECHANICAL LOOSENING OF OTH INTERNAL PROSTHETIC JOINT, INIT ; Z96.649 - PRESENCE OF UNSPECIFIED ARTIFICIAL HIP JOINT
[2018-10-04 08:20] LABS: ANION GAP 7 MMOL/L (8-16); BLOOD UREA NITROGEN 10 mg/dL (7-18); CALCIUM 7.1 mg/dL (8.5-10.1); CHLORIDE 108 mmol/L (98-107); CO2 23 mmol/L (21-32); CREATININE 0.5 mg/dL (0.55-1.3); GLUCOSE,RANDOM 162 mg/dL (74-106); MAGNESIUM 1.6 mg/dL (1.8-2.4); POTASSIUM 3.6 mmol/L (3.5-5.1); SODIUM 138 mmol/L (136-145)
[2018-10-04 08:27] LABS: INR 2.36 (0.83-1.09); PROTHROMBIN TIME (PATIENT) 28.1 SEC (9.7-13.0)
[2018-10-04] MEDS ORDERED: INSULIN (NOVOLOG) ASPART 100 UNITS/ML 10ML VIAL ONE (09:34)
[2018-10-04] MEDS: TAMSULOSIN HCL 0.4 MG CAP PO SCH (10:46)
[2018-10-04] MEDS: SENNOSIDES/DOCUSATE COMBO (SENNA PLUS) TABLET (UD) PO SCH ×2 (10:46→21:45)
[2018-10-04] MEDS: NAPH,MB-DB/K PH,MBDB POWDER PACKET PO SCH ×2 (10:46→21:39)
[2018-10-04] MEDS: MAGNESIUM OXIDE 400 MG TABLET (FP) PO SCH ×2 (10:46→21:39)
[2018-10-04] MEDS: PANTOPRAZOLE 40 MG TABLET (FP) PO SCH (10:46)
[2018-10-04] MEDS: CALCIUM 500MG/VIT-D 200 UNITS COMBO TABLET (FP) PO SCH ×2 (10:46→21:39)
[2018-10-04] MEDS: NYSTATIN POWDER 100,000 UNITS/GM - 15 GM TOPICAL POWDER TP SCH (10:47)
[2018-10-04] MEDS ORDERED: oxyCODONE HCL 5 MG TABLET PO PRN (11:28)
[2018-10-04 11:50] LABS: ANISOCYTOSIS 0; MACROCYTOSIS 0; PLATELET ESTIMATE NORMAL
[2018-10-04] MEDS: oxyCODONE HCL 5 MG TABLET PO PRN (12:01)
[2018-10-04 16:07] VITALS: BMI 29.3
--- NOTE | 2018-10-04 16:11 | SPA.PREOP ---
- PRE-OP NOTE Dx: LLE fem, pop & pt (acute), unable to utilize AC Planned Procedure: IVC Filter Surgeon: Uriel Marin Last Vital Signs Temp Pulse Resp BP Pulse Ox 98.3 F 84 18 124/60 97 10/04/18 10:44 10/04/18 10:44 10/04/18 10:44 10/04/18 10:44 10/04/18 10:48 Lab Results WBC 11.1 K/mm3 (4.0-10.0) H 10/04/18 06:10 RBC 2.62 M/mm3 (4.00-5.60) L 10/04/18 06:10 Hgb 8.4 GM/dL (11.7-16.9) L 10/04/18 06:10 Hct 23.6 % (35.4-49) L 10/04/18 06:10 MCV 90.3 fl (80-96) 10/04/18 06:10 MCHC 35.5 g/dl (32.0-35.9) 10/04/18 06:10 RDW 14.5 % (11.9-15.9) 10/04/18 06:10 Plt Count 336 K/MM3 (134-434) 10/04/18 06:10 Sodium 138 mmol/L (136-145) 10/04/18 06:10 Potassium 3.6 mmol/L (3.5-5.1) 10/04/18 06:10 Chloride 108 mmol/L (98-107) H 10/04/18 06:10 Carbon Dioxide 23 mmol/L (21-32) 10/04/18 06:10 Anion Gap 7 MMOL/L (8-16) L 10/04/18 06:10 BUN 10 mg/dL (7-18) 10/04/18 06:10 Creatinine 0.5 mg/dL (0.55-1.3) L 10/04/18 06:10 Random Glucose 162 mg/dL (74-106) H 10/04/18 06:10 Calcium 7.1 mg/dL (8.5-10.1) L 10/04/18 06:10 Blood Type A POSITIVE 10/03/18 00:01 Antibody Screen Negative 10/03/18 00:01 INR 2.36 (0.83-1.09) H 10/04/18 06:10 Problem List - Problems (1) DVT (deep venous thrombosis) Assessment/Plan: 1. NPO after breakfast except po meds 2. GI/DVT PPX 3. Per Dr. Marin, INR < 2.0 in order to do case 4. Medical optimization / clearance 5. Consent to be obtained by surgeon after risks, benefits and alternatives discussed with patient and or Health Care Proxy. Code(s): I82.409 - ACUTE EMBOLISM AND THOMBOS UNSP DEEP VN UNSP LOWER EXTREMITY
[2018-10-04] MEDS: SODIUM CHLORIDE 1,000 ML IV SCH (17:30)
--- NOTE | 2018-10-04 17:38 | PN ---
Physical Exam: SUBJECTIVE: Patient seen and examined at the bedside. in no acute distress. reports 3 loose stools. OBJECTIVE: POD #8 Left SANTA Vital Signs Period Temp Pulse Resp BP Sys/Faria Pulse Ox Last 24 Hr 98 F-99.7 F 79-88 18-20 117-127/57-61 95-97 GENERAL: The patient is awake, alert, and fully oriented, in no acute distress. HEAD: Normal with no signs of trauma. EYES: PERRL, extraocular movements intact, sclera anicteric, conjunctiva clear. No ptosis. ENT: Ears normal, nares patent, oropharynx clear without exudates, moist mucous membranes. NECK: Trachea midline, full range of motion, supple. LUNGS: Breath sounds equal, clear to auscultation bilaterally HEART: Regular rate and rhythm ABDOMEN: Soft, nontender, nondistended, normoactive bowel sounds EXTREMITIES: s/p left SANTA NEUROLOGICAL: Normal speech, gait not observed. PSYCH: Normal mood, normal affect. Laboratory Results - last 24 hr 10/03/18 10/04/18 10/04/18 20:48 06:10 06:10 WBC 11.1 H RBC 2.62 L Hgb 8.4 L Hct 23.6 L MCV 90.3 MCH 32.1 MCHC 35.5 RDW 14.5 Plt Count 336 MPV 7.1 L Absolute Neuts (auto) 8.2 H Neutrophils % 73.7 Neutrophils % (Manual) 66.0 Band Neutrophils % 2.0 Lymphocytes % 14.9 Lymphocytes % (Manual) 17.0 D Monocytes % 8.4 Monocytes % (Manual) 8 D Eosinophils % 2.6 Eosinophils % (Manual) 4.0 Basophils % 0.4 Basophils % (Manual) 0.0 Myelocytes % (Man) 0 Promyelocytes % (Man) 0 Blast Cells % (Manual) 0 Nucleated RBC % 0 Metamyelocytes 3 H D Hypochromia 0 Platelet Estimate Normal Polychromasia 0 Poikilocytosis 1+ Anisocytosis 0 Microcytosis 0 Macrocytosis 0 PT with INR 28.10 H INR 2.36 H Sodium Potassium Chloride Carbon Dioxide Anion Gap BUN Creatinine Creat Clearance w eGFR POC Glucometer 188 Random Glucose Calcium Magnesium 10/04/18 10/04/18 10/04/18 06:10 06:12 12:03 WBC RBC Hgb Hct MCV MCH MCHC RDW Plt Count MPV Absolute Neuts (auto) Neutrophils % Neutrophils % (Manual) Band Neutrophils % Lymphocytes % Lymphocytes % (Manual) Monocytes % Monocytes % (Manual) Eosinophils % Eosinophils % (Manual) Basophils % Basophils % (Manual) Myelocytes % (Man) Promyelocytes % (Man) Blast Cells % (Manual) Nucleated RBC % Metamyelocytes Hypochromia Platelet Estimate Polychromasia Poikilocytosis Anisocytosis Microcytosis Macrocytosis PT with INR INR Sodium 138 Potassium 3.6 Chloride 108 H Carbon Dioxide 23 Anion Gap 7 L BUN 10 Creatinine 0.5 L Creat Clearance w eGFR 158.03 POC Glucometer 158 132 Random Glucose 162 H Calcium 7.1 L Magnesium 1.6 L 10/04/18 17:24 WBC RBC Hgb Hct MCV MCH MCHC RDW Plt Count MPV Absolute Neuts (auto) Neutrophils % Neutrophils % (Manual) Band Neutrophils % Lymphocytes % Lymphocytes % (Manual) Monocytes % Monocytes % (Manual) Eosinophils % Eosinophils % (Manual) Basophils % Basophils % (Manual) Myelocytes % (Man) Promyelocytes % (Man) Blast Cells % (Manual) Nucleated RBC % Metamyelocytes Hypochromia Platelet Estimate Polychromasia Poikilocytosis Anisocytosis Microcytosis Macrocytosis PT with INR INR Sodium Potassium Chloride Carbon Dioxide Anion Gap BUN Creatinine Creat Clearance w eGFR POC Glucometer 178 Random Glucose Calcium Magnesium Active Medications Generic Name Dose Route Start Last Admin Trade Name Freq PRN Reason Stop Dose Admin Al Hydroxide/Mg Hydroxide 30 ml 09/30/18 15:57 Mylanta Oral Suspension - PO Q4H PRN DYSPEPSIA Atorvastatin Calcium 20 mg 09/30/18 22:00 10/03/18 21:18 Lipitor - PO 20 mg HS NEETA Administration Calcium Carbonate/Cholecalciferol 1 tab 10/03/18 22:00 10/04/18 10:46 Os-Balbir 500+D - PO 1 tab BID NEETA Administration Sodium Chloride 1,000 mls @ 100 mls/hr 09/30/18 15:57 10/04/18 17:30 Normal Saline - IV 100 mls/hr ASDIR NEETA Administration Insulin Aspart 0 units 09/30/18 16:30 10/04/18 17:28 Novolog Vial SQ 2 units ACHS NEETA Administration Protocol Magnesium Hydroxide 30 ml 09/30/18 15:57 Milk Of Magnesia - PO PRN PRN CONSTIPATION Magnesium Oxide 400 mg 10/02/18 10:00 10/04/18 10:46 Mag-Ox - PO 400 mg BID NEETA Administration Nystatin 1 applic 10/03/18 14:45 10/04/18 10:47 Nystop Powder - TP 1 applic DAILY NEETA Administration Ondansetron HCl 4 mg 09/30/18 15:57 Zofran Injection IVPUSH Q6H PRN NAUSEA Oxycodone HCl 5 mg 10/04/18 11:28 Roxicodone - PO Q6H PRN PAIN LEVEL 4 - 6 Oxycodone HCl 10 mg 10/04/18 11:29 10/04/18 12:01 Roxicodone - PO 10 mg Q6H PRN Administration PAIN LEVEL 7 - 10 Pantoprazole Sodium 40 mg 10/01/18 10:00 10/04/18 10:46 Protonix - PO 40 mg DAILY NEETA Administration Potassium Phos/Sodium Phos 1 packet 10/02/18 10:00 10/04/18 10:46 Phos-Nak Packet - PO 1 packet BID NEETA Administration Senna/Docusate Sodium 2 tablet 09/30/18 22:00 10/04/18 10:46 Pericolace - PO Not Given BID NEETA Tamsulosin HCl 0.4 mg 10/01/18 17:30 10/04/18 10:46 Flomax - PO 0.4 mg DAILY@0830 NEETA Administration ASSESSMENT/PLAN: Patient is an 87 year-old male presented to the [facility] ED on 3 for an elective left total hip arthroplasty for left hip degenerative joint disease. Post op #1 he was hypotensive to 95/48 which improved with IVF. on day #2 his hmg dropped to 7.7 from baseline and was given 2 units of prbc with improvement. on post op day #3 he was noted to have more bleeding via stephanie drain with dark colored urine seen on lebron catheter. Patient was transferred to [facility] for further management. Patient was started on Eliquis for DVT in 2017 and switched to warfarin 2/2 to cost. His other history includes hypertension, DVT on Coumadin, diabetes, PAD, s/p Left SANTA complicated by post procedure anemia. Surgery: L hip degenerative disease- s/p Left total hip arthroplasty POD #8 Left SANTA Post op care per surgery pain managed. denies discomfort. 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 initially on eliquis but stopped 2/2 to cost of eliquis vascular study 09/29/18, left leg DVT seen Anticoagulation being held by surgery for possible ivc filter tomorrow inr currently 2.36 Acute blood loss anemia. s/p 4 units of prbc during hospitalization hmg/hct stable x 3 days will need anticoagulation for at least 4 weeks post surgery hematology consulted for further recommendations Endocrine Diabetes hold oral agents, on novolog ss. maintain bgms less than 180 Pulm: COPD, history in no acute exacerbation : + uti on ua (+3 leuks, wbc 176, +1 protein) started on ceftriaxone urine cultures pending he is asymptomatic, but has mild leukocytosis. fen tolerating po monitor electrolytes diabetic diet prophy coumadin on hold Visit type - Emergency Visit Emergency Visit: Yes ED Registration Date: 09/26/18 Care time: The patient presented to the Emergency Department on the above date and was hospitalized for further evaluation of their emergent condition. - New Patient This patient is new to me today: Yes Date on this admission: 10/04/18 - Critical Care Critical Care patient: No - Discharge Referral Referred to [facility] Med P.C.: No
[2018-10-04] MEDS ORDERED: DEXTROSE 5%-WATER - 50 ML IVPB ONE (18:20)
[2018-10-04] MEDS ORDERED: cefTRIAXone SODIUM 1 GM VIAL ONE (18:20)
[2018-10-04] MEDS: CEFTRIAXONE 1 GM in DEXTROSE 5%-WATER - 50 ML IVPB SCH (18:23)
[2018-10-04] MEDS: ATORVASTATIN CA 20 MG TABLET (FP) PO SCH (21:29)
[2018-10-05] MEDS: INSULIN (NOVOLOG) ASPART 100 UNITS/ML 10ML VIAL SQ SCH ×4 (06:44→21:23)
[2018-10-05 07:18] LABS: BASO % 0.3 % (0-2.0); EOS % 2.8 % (0-4.5); HEMATOCRIT 23.7 % (35.4-49); HEMOGLOBIN 8.3 GM/dL (11.7-16.9); LYMPH % 15.6 % (8-40); MCH 31.7 pg (25.7-33.7); MCHC 35.1 g/dl (32.0-35.9); MEAN CELL VOLUME 90.4 fl (80-96); MEAN PLT VOLUME 6.3 fl (7.5-11.1); MONO % 9.2 % (3.8-10.2); NEUT % 72.1 % (42.8-82.8); PLATELET COUNT 389 K/MM3 (134-434); RBC 2.62 M/mm3 (4.00-5.60); RDW 14.6 % (11.9-15.9); WHITE BLOOD COUNT 9.1 K/mm3 (4.0-10.0)
[2018-10-05 07:32] LABS: INR 2.02 (0.83-1.09)
[2018-10-05 07:50] LABS: ALBUMIN 1.9 g/dl (3.4-5.0); ALK PHOS 40 U/L (45-117); ANION GAP 6 MMOL/L (8-16); BILIRUBIN,TOTAL 1.1 mg/dL (0.2-1); BLOOD UREA NITROGEN 10 mg/dL (7-18); CALCIUM 7.2 mg/dL (8.5-10.1); CHLORIDE 108 mmol/L (98-107); CO2 26 mmol/L (21-32); CREATININE 0.6 mg/dL (0.55-1.3); GLUCOSE,RANDOM 170 mg/dL (74-106); MAGNESIUM 1.4 mg/dL (1.8-2.4); POTASSIUM 3.9 mmol/L (3.5-5.1); SGOT/AST 32 U/L (15-37); SGPT/ALT 29 U/L (13-61); SODIUM 140 mmol/L (136-145); TOT PROT 4.8 g/dl (6.4-8.2)
[2018-10-05] MEDS ORDERED: cefTRIAXone SODIUM 1 GM VIAL ONE (09:31)
[2018-10-05] MEDS ORDERED: DEXTROSE 5%-WATER - 50 ML IVPB ONE (09:31)
[2018-10-05] MEDS: CALCIUM 500MG/VIT-D 200 UNITS COMBO TABLET (FP) PO SCH ×2 (09:33→22:27)
[2018-10-05] MEDS: MAGNESIUM OXIDE 400 MG TABLET (FP) PO SCH ×2 (09:33→22:27)
[2018-10-05] MEDS: CEFTRIAXONE 1 GM in DEXTROSE 5%-WATER - 50 ML IVPB SCH (09:33)
[2018-10-05] MEDS: SENNOSIDES/DOCUSATE COMBO (SENNA PLUS) TABLET (UD) PO SCH ×2 (09:34→22:29)
[2018-10-05] MEDS: PANTOPRAZOLE 40 MG TABLET (FP) PO SCH (09:34)
[2018-10-05] MEDS: TAMSULOSIN HCL 0.4 MG CAP PO SCH (09:34)
[2018-10-05] MEDS: NAPH,MB-DB/K PH,MBDB POWDER PACKET PO SCH ×2 (09:34→22:27)
[2018-10-05] MEDS: NYSTATIN POWDER 100,000 UNITS/GM - 15 GM TOPICAL POWDER TP SCH (09:35)
[2018-10-05] MEDS: oxyCODONE HCL 5 MG TABLET PO PRN (09:40)
[2018-10-05 10:35] LABS: ANISOCYTOSIS 0; MACROCYTOSIS 0; PLATELET ESTIMATE NORMAL
--- NOTE | 2018-10-05 12:59 | PN ---
Physical Exam: SUBJECTIVE: Patient seen and examined at the bedside. in no acute distress. OBJECTIVE: Vital Signs Period Temp Pulse Resp BP Sys/Faria Pulse Ox Last 24 Hr 97.4 F-98.6 F 74-85 18-24 118-139/60-65 96-96 GENERAL: The patient is awake, alert, and fully oriented, in no acute distress. HEAD: Normal with no signs of trauma. EYES: PERRL, extraocular movements intact, sclera anicteric, conjunctiva clear. No ptosis. ENT: Ears normal, nares patent, oropharynx clear without exudates, moist mucous membranes. NECK: Trachea midline, full range of motion, supple. LUNGS: Breath sounds equal, clear to auscultation bilaterally HEART: Regular rate and rhythm ABDOMEN: Soft, nontender, nondistended, normoactive bowel sounds EXTREMITIES: s/p left SANTA. left thigh more NEUROLOGICAL: Normal speech, gait not observed. PSYCH: Normal mood, normal affect Laboratory Results - last 24 hr 10/04/18 10/04/18 10/05/18 17:24 21:32 05:54 WBC RBC Hgb Hct MCV MCH MCHC RDW Plt Count MPV Absolute Neuts (auto) Neutrophils % Neutrophils % (Manual) Band Neutrophils % Lymphocytes % Lymphocytes % (Manual) Monocytes % Monocytes % (Manual) Eosinophils % Eosinophils % (Manual) Basophils % Basophils % (Manual) Myelocytes % (Man) Promyelocytes % (Man) Blast Cells % (Manual) Nucleated RBC % Metamyelocytes Hypochromia Platelet Estimate Polychromasia Poikilocytosis Anisocytosis Microcytosis Macrocytosis PT with INR INR Sodium Potassium Chloride Carbon Dioxide Anion Gap BUN Creatinine Creat Clearance w eGFR POC Glucometer 178 174 169 Random Glucose Calcium Magnesium Total Bilirubin AST ALT Alkaline Phosphatase Total Protein Albumin 10/05/18 10/05/18 10/05/18 06:45 06:45 06:45 WBC 9.1 RBC 2.62 L Hgb 8.3 L Hct 23.7 L MCV 90.4 MCH 31.7 MCHC 35.1 RDW 14.6 Plt Count 389 MPV 6.3 L D Absolute Neuts (auto) 6.6 Neutrophils % 72.1 Neutrophils % (Manual) 73.0 Band Neutrophils % 0.0 Lymphocytes % 15.6 Lymphocytes % (Manual) 11.0 D Monocytes % 9.2 Monocytes % (Manual) 8 Eosinophils % 2.8 Eosinophils % (Manual) 2.0 Basophils % 0.3 Basophils % (Manual) 0.0 Myelocytes % (Man) 2 D Promyelocytes % (Man) 0 Blast Cells % (Manual) 0 Nucleated RBC % 0 Metamyelocytes 3 H Hypochromia 0 Platelet Estimate Normal Polychromasia 0 Poikilocytosis 0 Anisocytosis 0 Microcytosis 0 Macrocytosis 0 PT with INR 24.00 H INR 2.02 H Sodium 140 Potassium 3.9 Chloride 108 H Carbon Dioxide 26 Anion Gap 6 L BUN 10 Creatinine 0.6 Creat Clearance w eGFR 128.05 POC Glucometer Random Glucose 170 H Calcium 7.2 L Magnesium 1.4 L Total Bilirubin 1.1 H AST 32 ALT 29 Alkaline Phosphatase 40 L Total Protein 4.8 L Albumin 1.9 L 10/05/18 12:01 WBC RBC Hgb Hct MCV MCH MCHC RDW Plt Count MPV Absolute Neuts (auto) Neutrophils % Neutrophils % (Manual) Band Neutrophils % Lymphocytes % Lymphocytes % (Manual) Monocytes % Monocytes % (Manual) Eosinophils % Eosinophils % (Manual) Basophils % Basophils % (Manual) Myelocytes % (Man) Promyelocytes % (Man) Blast Cells % (Manual) Nucleated RBC % Metamyelocytes Hypochromia Platelet Estimate Polychromasia Poikilocytosis Anisocytosis Microcytosis Macrocytosis PT with INR INR Sodium Potassium Chloride Carbon Dioxide Anion Gap BUN Creatinine Creat Clearance w eGFR POC Glucometer 155 Random Glucose Calcium Magnesium Total Bilirubin AST ALT Alkaline Phosphatase Total Protein Albumin Active Medications Generic Name Dose Route Start Last Admin Trade Name Freq PRN Reason Stop Dose Admin Al Hydroxide/Mg Hydroxide 30 ml 09/30/18 15:57 Mylanta Oral Suspension - PO Q4H PRN DYSPEPSIA Atorvastatin Calcium 20 mg 09/30/18 22:00 10/04/18 21:29 Lipitor - PO 20 mg HS NEETA Administration Calcium Carbonate/Cholecalciferol 1 tab 10/03/18 22:00 10/05/18 09:33 Os-Balbir 500+D - PO 1 tab BID NEETA Administration Sodium Chloride 1,000 mls @ 100 mls/hr 09/30/18 15:57 10/04/18 17:30 Normal Saline - IV 100 mls/hr ASDIR NEETA Administration Ceftriaxone Sodium 1 gm/ 50 mls @ 100 mls/hr 10/04/18 18:15 10/05/18 09:33 Dextrose IVPB 100 mls/hr DAILY NEETA Administration Protocol Insulin Aspart 0 units 09/30/18 16:30 10/05/18 12:29 Novolog Vial SQ Not Given ACHS [facility] Protocol Magnesium Hydroxide 30 ml 09/30/18 15:57 Milk Of Magnesia - PO PRN PRN CONSTIPATION Magnesium Oxide 400 mg 10/02/18 10:00 10/05/18 09:33 Mag-Ox - PO 400 mg BID NEETA Administration Nystatin 1 applic 10/03/18 14:45 10/05/18 09:35 Nystop Powder - TP 1 applic DAILY NEETA Administration Ondansetron HCl 4 mg 09/30/18 15:57 Zofran Injection IVPUSH Q6H PRN NAUSEA Oxycodone HCl 5 mg 10/04/18 11:28 Roxicodone - PO Q6H PRN PAIN LEVEL 4 - 6 Oxycodone HCl 10 mg 10/04/18 11:29 10/05/18 09:40 Roxicodone - PO 10 mg Q6H PRN Administration PAIN LEVEL 7 - 10 Pantoprazole Sodium 40 mg 10/01/18 10:00 10/05/18 09:34 Protonix - PO 40 mg DAILY NEETA Administration Potassium Phos/Sodium Phos 1 packet 10/02/18 10:00 10/05/18 09:34 Phos-Nak Packet - PO 1 packet BID NEETA Administration Senna/Docusate Sodium 2 tablet 09/30/18 22:00 10/05/18 09:34 Pericolace - PO Not Given BID NEETA Tamsulosin HCl 0.4 mg 10/01/18 17:30 10/05/18 09:34 Flomax - PO 0.4 mg DAILY@0830 NEETA Administration ASSESSMENT/PLAN: Patient is an 87 year-old male presented to the [facility] ED on 3 for an elective left total hip arthroplasty for left hip degenerative joint disease. Post op #1 he was hypotensive to 95/48 which improved with IVF. on day #2 his hmg dropped to 7.7 from baseline and was given 2 units of prbc with improvement. on post op day #3 he was noted to have more bleeding via stephanie drain with dark colored urine seen on lebron catheter. Patient was transferred to [facility] for further management. Patient was started on Eliquis for DVT in 2017 and switched to warfarin 2/2 to cost. His other history includes hypertension, DVT on Coumadin, diabetes, PAD, s/p Left SANTA complicated by post procedure anemia. Surgery: L hip degenerative disease- s/p Left total hip arthroplasty POD #9 Left SANTA Post op care per surgery pain managed. denies discomfort. 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 initially on eliquis but stopped 2/2 to cost of eliquis vascular study 09/29/18, left leg DVT seen Anticoagulation being held by surgery for possible ivc filter tomorrow inr currently 2.02 discussed with hematology Acute blood loss anemia. s/p 4 units of prbc during hospitalization hmg/hct stable x 3 days will need anticoagulation for at least 4 weeks post surgery. ivc filter to be placed. then will need anticoagulation and close monitoring of hmg/hct as an outpatient. will ideally need to be monitored twice per week while on anticoagulation to sure stable hmg/hct. will need to coordinate this with his pcp or facility where patient is going to. Endocrine Diabetes hold oral agents, on novolog ss. maintain bgms less than 180 Pulm: COPD, history in no acute exacerbation : + uti on ua (+3 leuks, wbc 176, +1 protein) started on ceftriaxone urine cultures pending fen tolerating po monitor electrolytes diabetic diet prophy coumadin on hold Visit type - Emergency Visit Emergency Visit: Yes ED Registration Date: 09/26/18 Care time: The patient presented to the Emergency Department on the above date and was hospitalized for further evaluation of their emergent condition. - New Patient This patient is new to me today: No - Critical Care Critical Care patient: No - Discharge Referral Referred to [facility] Med P.C.: No
[2018-10-05] MEDS: SODIUM CHLORIDE 1,000 ML IV SCH (16:20)
[2018-10-05 16:39] LABS: INR 1.69 (0.83-1.09); PROTHROMBIN TIME (PATIENT) 20.1 SEC (9.7-13.0)
--- NOTE | 2018-10-05 16:44 | PN ---
Progress Note (short form) - Note Progress Note: Patient seen and examined . Consult dictated 2016 provoked DVT post spinal surgery. Initial therapy lovenox followed by jett and coumadin recently. Coumadin stopped 5 days prior to left hip arthroplasty 09/26. Acute DVT involving left proximal , middle, and distal femoral vein, posterior tibial and popliteal vein detected 09/30 on vascular study. 4units of packed cells post surgery for intramuscular bleeding into left thigh. 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 IF filter placed, would consider full a/c with lovenox. Careful monitoring of Hct. If falling Hct , would change to prophylactic dose of Lovenox. Would treat with lovenox x 30 days. Thereafter can give a/c with coumadin x 3-6 months ( assuming provoked DVT) Afterward off a/c would do thrombophilia work up. When feasible age related malignancy evaluation.
--- NOTE | 2018-10-05 17:40 | PN ---
Progress Note (short form) - Note Progress Note: POD#7 Looking much better feels better eating and apatite improved Vitals as per chart LE Dressing still has serosang drainage but appears to be less. Diffuse swelling Neuro Fully intact Calf tender No subsartorian tenderness PLAN For IVC filter once INR is appropriate PT mobilze FWBAT D/C planning on
--- NOTE | 2018-10-05 18:05 | PN ---
Progress Note (short form) - Note Progress Note: Vascular Surgery Pt seen and examined. Called to evaluate for placement of IVC filter. Pt with left lower ext dvt. Was on coumadin prior but stopped and bridged prior to right total hip. Now with new dvt. Will place IVC filter erlinda to protect pt. Pt will then go onto AC protocol as per heme. Dr. Potts's note reviewed. Spoke to Hospitalist and everyone agrees with placement of IVC filter. Pt is high fall risk, and will be sedentary due to recent surgery Uriel Marin dO
[2018-10-05] MEDS: ATORVASTATIN CA 20 MG TABLET (FP) PO SCH (22:27)
[2018-10-06] MEDS: SODIUM CHLORIDE 1,000 ML IV SCH ×2 (03:15→18:18)
[2018-10-06] MEDS: oxyCODONE HCL 5 MG TABLET PO PRN ×2 (04:19→20:15)
[2018-10-06] MEDS: INSULIN (NOVOLOG) ASPART 100 UNITS/ML 10ML VIAL SQ SCH ×3 (06:27→11:36)
[2018-10-06] MEDS ORDERED: cefTRIAXone SODIUM 1 GM VIAL ONE (09:50)
[2018-10-06] MEDS ORDERED: DEXTROSE 5%-WATER - 50 ML IVPB ONE (09:51)
[2018-10-06] MEDS ORDERED: HEPARIN NA (PORCINE) 5,000 UNITS/ML 1ML VIAL ONE (11:06)
[2018-10-06] MEDS: SENNOSIDES/DOCUSATE COMBO (SENNA PLUS) TABLET (UD) PO SCH ×2 (11:26→22:15)
[2018-10-06] MEDS: CALCIUM 500MG/VIT-D 200 UNITS COMBO TABLET (FP) PO SCH ×2 (11:26→22:16)
[2018-10-06] MEDS: NAPH,MB-DB/K PH,MBDB POWDER PACKET PO SCH ×2 (11:26→22:15)
[2018-10-06] MEDS: MAGNESIUM OXIDE 400 MG TABLET (FP) PO SCH ×2 (11:26→22:16)
[2018-10-06] MEDS: TAMSULOSIN HCL 0.4 MG CAP PO SCH (11:26)
[2018-10-06] MEDS: PANTOPRAZOLE 40 MG TABLET (FP) PO SCH (11:27)
[2018-10-06] MEDS: CEFTRIAXONE 1 GM in DEXTROSE 5%-WATER - 50 ML IVPB SCH (11:28)
[2018-10-06] MEDS: NYSTATIN POWDER 100,000 UNITS/GM - 15 GM TOPICAL POWDER TP SCH (11:29)
--- NOTE | 2018-10-06 12:09 | PN ---
Physical Exam: SUBJECTIVE: Patient seen and examined. OBJECTIVE: IVC filter placement today. then will start lovenox full dose in the a.m. Vital Signs Period Temp Pulse Resp BP Sys/Faria Pulse Ox Last 24 Hr 93 F-98.8 F 79-88 18- 124-131/61-74 96 GENERAL: The patient is awake, alert, and fully oriented, in no acute distress. HEAD: Normal with no signs of trauma. EYES: PERRL, extraocular movements intact, sclera anicteric, conjunctiva clear. No ptosis. ENT: Ears normal, nares patent, oropharynx clear without exudates, moist mucous membranes. NECK: Trachea midline, full range of motion, supple. LUNGS: Breath sounds equal, clear to auscultation bilaterally HEART: Regular rate and rhythm ABDOMEN: Soft, nontender, nondistended, normoactive bowel sounds EXTREMITIES: s/p left SANTA. left thigh more NEUROLOGICAL: Normal speech, gait not observed. PSYCH: Normal mood, normal affect Laboratory Results - last 24 hr 10/02/18 10/05/18 10/05/18 08:50 15:45 18:05 PT with INR 20.10 H INR 1.69 H POC Glucometer 143 Blood Type A POSITIVE Antibody Screen Negative Crossmatch See Detail 10/05/18 10/06/18 10/06/18 20:59 06:20 11:32 PT with INR INR POC Glucometer 200 168 145 Blood Type Antibody Screen Crossmatch Active Medications Generic Name Dose Route Start Last Admin Trade Name Freq PRN Reason Stop Dose Admin Al Hydroxide/Mg Hydroxide 30 ml 09/30/18 15:57 Mylanta Oral Suspension - PO Q4H PRN DYSPEPSIA Atorvastatin Calcium 20 mg 09/30/18 22:00 10/05/18 22:27 Lipitor - PO 20 mg HS NEETA Administration Calcium Carbonate/Cholecalciferol 1 tab 10/03/18 22:00 10/06/18 11:26 Os-Balbir 500+D - PO Not Given BID NEETA Sodium Chloride 1,000 mls @ 100 mls/hr 09/30/18 15:57 10/06/18 03:15 Normal Saline - IV 100 mls/hr ASDIR NEETA Administration Ceftriaxone Sodium 1 gm/ 50 mls @ 100 mls/hr 10/04/18 18:15 10/06/18 11:28 Dextrose IVPB 100 mls/hr DAILY [facility] Administration Protocol Insulin Aspart 0 units 09/30/18 16:30 10/06/18 11:36 Novolog Vial SQ Not Given ACHS [facility] Protocol Magnesium Hydroxide 30 ml 09/30/18 15:57 Milk Of Magnesia - PO PRN PRN CONSTIPATION Magnesium Oxide 400 mg 10/02/18 10:00 10/06/18 11:26 Mag-Ox - PO Not Given BID [facility] Nystatin 1 applic 10/03/18 14:45 10/06/18 11:29 Nystop Powder - TP Not Given DAILY [facility] Ondansetron HCl 4 mg 09/30/18 15:57 Zofran Injection IVPUSH Q6H PRN NAUSEA Oxycodone HCl 5 mg 10/04/18 11:28 Roxicodone - PO Q6H PRN PAIN LEVEL 4 - 6 Oxycodone HCl 10 mg 10/04/18 11:29 10/06/18 04:19 Roxicodone - PO 10 mg Q6H PRN Administration PAIN LEVEL 7 - 10 Pantoprazole Sodium 40 mg 10/01/18 10:00 10/06/18 11:27 Protonix - PO Not Given DAILY [facility] Potassium Phos/Sodium Phos 1 packet 10/02/18 10:00 10/06/18 11:26 Phos-Nak Packet - PO Not Given BID [facility] Senna/Docusate Sodium 2 tablet 09/30/18 22:00 10/06/18 11:26 Pericolace - PO Not Given BID [facility] Tamsulosin HCl 0.4 mg 10/01/18 17:30 10/06/18 11:26 Flomax - PO Not Given DAILY@0830 [facility] ASSESSMENT/PLAN: Patient is an 87 year-old male presented to the [facility] ED on 3 for an elective left total hip arthroplasty for left hip degenerative joint disease. Post op #1 he was hypotensive to 95/48 which improved with IVF. on day #2 his hmg dropped to 7.7 from baseline and was given 2 units of prbc with improvement. on post op day #3 he was noted to have more bleeding via stephanie drain with dark colored urine seen on lebron catheter. Patient was transferred to [facility] for further management. Patient was started on Eliquis for DVT in 2017 and switched to warfarin 2/2 to cost. His other history includes hypertension, DVT on Coumadin, diabetes, PAD, s/p Left SANTA complicated by post procedure anemia. Surgery: L hip degenerative disease- s/p Left total hip arthroplasty POD #10 Left SANTA Post op care per surgery. pain managed. denies discomfort. 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 Acute blood loss anemia. s/p 4 units of prbc during hospitalization initially on eliquis but stopped 2/2 to cost of eliquis. vascular study 09/29/18 , left leg extensive DVT seen. for IVC filter today, will monitor hmg/hct for a.m. and start lovenox full dose BID tomorrow. will need anticoagulation for at least 4 weeks post surgery. He will need close monitoring of hmg/hct as an outpatient. will ideally need to have CBC monitored twice per week while on anticoagulation to sure stable hmg/hct. will need to coordinate this with his pcp or facility where patient is going to. Endocrine Diabetes hold oral agents, on novolog ss. maintain bgms less than 180 Pulm: COPD, history in no acute exacerbation : + uti on ua (+3 leuks, wbc 176, +1 protein) started on ceftriaxone urine cultures pending fen tolerating po monitor electrolytes diabetic diet prophy ivc filter today, then lovenox bid Visit type - Emergency Visit Emergency Visit: Yes ED Registration Date: 09/26/18 Care time: The patient presented to the Emergency Department on the above date and was hospitalized for further evaluation of their emergent condition. - New Patient This patient is new to me today: No - Critical Care Critical Care patient: No - Discharge Referral Referred to [facility] No
--- NOTE | 2018-10-06 12:10 | CONS ---
DATE OF CONSULTATION: 10/05/2018 This 87-year-old is being seen for evaluation of anticoagulation therapy. The patient has a history in 2017 of spinal surgery. Postoperatively he developed a DVT. He was initially treated with Lovenox therapy and then switched to Eliquis therapy. About a month or so ago, he was switched to Coumadin therapy. Coumadin was stopped 5 days ago in preparation for a repair of a left hip osteoarthritis. The patient was noted to have developed a left lower extremity DVT with a positive ultrasound involving the proximal, middle, and distal left femoral vein; the left posterior tibial vein; and the left popliteal vein. The patient has been treated with anticoagulation and has had bleeding postoperatively requiring 4 units of packed cells to date. FAMILY HISTORY: Includes a mother who had a brain hemorrhage, a father with diabetes, a brother and sister with cancer. No history of strokes or blood clots in the family. 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 He did not smoke. A social drinker. Other than his occupational, no industrial exposures or intoxicants. ALLERGIES: Include lisinopril. MEDICATIONS: Include Zofran, Flomax, Mylanta, magnesium oxide, ceftriaxone, MOM, pericolace, Lipitor, insulin, oxycodone, Protonix, and Neutra-Phos. PAST MEDICAL HISTORY: Includes hyperlipidemia, diabetes. No history of hepatitis. No history of stroke. No history of hypertension. History of gallbladder surgery. No history of kidney disease. History recently of anemia. No history of gout. No history of thyroid disease. PAST SURGICAL HISTORY: Includes spinal surgery, hip surgery with revision on the right, recent left hip surgery, hernia repair. REVIEW OF SYSTEMS: No significant headaches. No diplopia. No epistaxis. No dysphagia. No shortness of breath. No chest pain. No nausea, vomiting, diarrhea, constipation. Patient with Gillis. Left hip pain. No paresthesias of the lower extremity. PHYSICAL EXAMINATION: VITAL SIGNS: Blood pressure 125/61, pulse 84, respiratory 18, afebrile. HEENT: YOAV. EOM intact. Oropharynx unremarkable. Neck: Supple. Lungs: Relatively clear. Poor inspiratory effort. Cardiac: Regular rhythm. Abdomen: Soft. Genitourinary: Gillis catheter. Extremities: Left hip swollen status post surgery. Left femoral-popliteal and posterior tibial DVT. DIAGNOSTIC DATA: CT of the abdomen: Limited study. No obvious retroperitoneal hematoma. ASSESSMENT/PLAN: Patient was operated on with a preoperative diagnosis of left hip osteoarthritis. Postoperative diagnosis was the same. Patient underwent left total hip arthroplasty on September 26. He developed a deep vein thrombosis of his left femoral popliteal posterior tibial veins. He has urinary retention. He has required 4 units of packed cells because of a left hip and femoral intramuscular hemorrhage. Additional history as aforementioned includes history of deep vein thrombosis, post back surgery, and type 2 diabetes, and chronic bronchiectasis. History of initial deep vein thrombosis was post spinal surgery suggesting a provoked deep vein thrombosis. Patient developed his deep vein thrombosis currently after being off Coumadin for 5 days and lying at bedrest. This might also be a provoked deep vein thrombosis. Filter is being planned in view of hemorrhage into the hip into the thigh region post surgery. This will allow for full-dose anticoagulation with Lovenox for the first 30 days followed by an additional several months of anticoagulation as this likewise may be a provided deep vein thrombosis. Thereafter a thrombophilia workup can be considered. Thanking you. MINGO CARBAJAL M.D. [id number]
[2018-10-06] MEDS ORDERED: PROPOFOL 20 ML ONE (12:35)
[2018-10-06] MEDS ORDERED: MIDAZOLAM HCL 2 MG/2 ML SINGLE DOSE VIAL ONE (12:35)
[2018-10-06] MEDS ORDERED: ceFAZolin SODIUM 1 GM VIAL IVPB ONE (12:40)
[2018-10-06] MEDS ORDERED: ceFAZolin SODIUM 1 GM VIAL ONE (12:42)
[2018-10-06] MEDS ORDERED: LIDOCAINE HCL 1%, 10 MG/ML (20ML VIAL) NR ONE (12:53)
--- NOTE | 2018-10-06 13:16 | OP ---
Operative Note - Note: Operative Date: 10/06/18 Pre-Operative Diagnosis: DVT, high fall risk Operation: Insertion of inferior vena cava filter with venogram Post-Operative Diagnosis: Same as Pre-op Surgeon: Uriel Marin Anesthesia: Fractional Estimated Blood Loss (mls): 5 Operative Report Dictated: Yes
[2018-10-06] MEDS ORDERED: MAGNESIUM HYDROX 2400MG/30ML ORAL SUSPENSION 30 ML CUP PO PRN (13:57)
[2018-10-06] MEDS ORDERED: ONDANSETRON 4 MG/2 ML VIAL IVPUSH PRN (13:57)
[2018-10-06] MEDS ORDERED: MAG HYDROX/AL HYDROX/SIMETH 30 ML UNIT-DOSE CUP PO PRN (13:57)
[2018-10-06 15:11] LABS: BASO % 0.3 % (0-2.0); EOS % 2.9 % (0-4.5); HEMATOCRIT 25.8 % (35.4-49); HEMOGLOBIN 8.9 GM/dL (11.7-16.9); LYMPH % 17.3 % (8-40); MCH 31.7 pg (25.7-33.7); MCHC 34.6 g/dl (32.0-35.9); MEAN CELL VOLUME 91.6 fl (80-96); MEAN PLT VOLUME 6.4 fl (7.5-11.1); MONO % 7.4 % (3.8-10.2); NEUT % 72.1 % (42.8-82.8); PLATELET COUNT 471 K/MM3 (134-434); RBC 2.82 M/mm3 (4.00-5.60); RDW 14.8 % (11.9-15.9); WHITE BLOOD COUNT 8.1 K/mm3 (4.0-10.0)
[2018-10-06 15:32] LABS: INR 1.44 (0.83-1.09); PROTHROMBIN TIME (PATIENT) 17.1 SEC (9.7-13.0)
[2018-10-06 15:56] LABS: ANISOCYTOSIS 0; HELMET CELLS 0; HOWELL-JOLLY BODIES 0; MACROCYTOSIS 0; OVALOCYTE 0; PLATELET ESTIMATE NORMAL; ROULEAU 0; SICKELED CELLS 0; TARGET CELLS 0; TEAR DROP CELLS 0; TOXIC GRANULATION 0
--- NOTE | 2018-10-06 15:56 | OP ---
DATE OF OPERATION: 10/06/2018 PREOPERATIVE DIAGNOSIS: Left lower extremity deep vein thrombosis. POSTOPERATIVE DIAGNOSIS: Left lower extremity deep vein thrombosis. PROCEDURE: Insertion of inferior vena cava filter with vena cavogram. SURGEON: Uriel Batista DO ANESTHESIA: Fractional. BLOOD LOSS: 5 mL. The patient is an 87-year-old male who has a history of left lower extremity DVT and was on anticoagulation. His anticoagulation was stopped and bridged for his left total hip surgery done a couple of days ago. Thereafter, he developed a brand new DVT and now he is bedbound and high fall risk and would benefit from placing an IVC filter. The patient was consented for the procedure, understanding all risks, benefits, alternatives. He was then taken to the operating room. Once in the operating room, he was laid on operating table in supine manner. The area of the right and left groin were prepped and draped in a sterile surgical manner. We then injected 10 mL lidocaine 1% over the right common femoral vein. We then used our micropuncture needle and punctured the right common femoral vein. Micropuncture wire was inserted and micropuncture sheath was inserted. A 0.035 floppy guidewire was inserted into the inferior vena cava under fluoroscopy. We then went ahead and positioned the C-arm so that we could see the last rib and we positioned this so that we were at L1. We then went ahead and placed our IVC filter sheath up to L2. We then shot a vena cavogram, showing that the vena cava was patent and the bilateral renal veins were patent at L1. We then went ahead and marked where we want to place the filter between L2 and L3. We then loaded the filter into our sheath and the filter was then deployed between the L2 and L3. Completion vena cavogram showed that the filter was in place, there was no migration of the filter, there was no extravasation of contrast. Bilateral renal veins were patent. At this point, we removed our sheath. Pressure was held in the right groin for 5 minutes. After there was no more bleeding, the area was wet and dried, and Dermabond was placed. Patient tolerated this procedure, no complications. Patient was transferred to PACU in stable condition. URIEL BATISTA DO [id number]
[2018-10-06 16:57] LABS: ALK PHOS 43 U/L (45-117); ANION GAP 6 MMOL/L (8-16); BILIRUBIN,TOTAL 0.9 mg/dL (0.2-1); BLOOD UREA NITROGEN 9 mg/dL (7-18); CALCIUM 7.5 mg/dL (8.5-10.1); CHLORIDE 106 mmol/L (98-107); CO2 26 mmol/L (21-32); CREATININE 0.5 mg/dL (0.55-1.3); GLUCOSE,RANDOM 155 mg/dL (74-106); MAGNESIUM 1.8 mg/dL (1.8-2.4); POTASSIUM 4.5 mmol/L (3.5-5.1); SGOT/AST 31 U/L (15-37); SGPT/ALT 31 U/L (13-61); SODIUM 138 mmol/L (136-145); TOT PROT 5.1 g/dl (6.4-8.2)
[2018-10-06] MEDS: INSULIN SLIDING SCALE (NOVOLOG) 1 VIAL SQ SCH ×2 (18:19→22:18)
--- NOTE | 2018-10-06 21:13 | PN ---
Progress Note (short form) - Note Progress Note: patient seen and exained feels ok Last Vital Signs Temp Pulse Resp BP Pulse Ox 98.8 F 94 H 18 114/61 95 10/06/18 17:43 10/06/18 17:43 10/06/18 17:43 10/06/18 17:43 10/06/18 14:00 Cor: RSR, No murmurs, No gallops Lungs: Clear to P&A Abd: Soft, Normal bowel sounds, No organomegaly Ext:No significant edema labs/meds reviewed a/p 2016 provoked DVT post spinal surgery. Initial therapy lovenox followed by eliquis and coumadin recently. Coumadin stopped 5 days prior to left hip arthroplasty 09/26. Acute DVT involving left proximal , middle, and distal femoral vein, posterior tibial and popliteal vein detected 09/30 on vascular study. 4units of packed cells post surgery for intramuscular bleeding into left thigh. s/p ivc filter heodynaically stable orthopaedic clearence regarding of timing of resuming anticoagulation
[2018-10-06] MEDS ORDERED: ENOXAPARIN NA (PORCINE) 80 MG/0.8 ML DISP.SYRIN SQ SCH (22:00)
[2018-10-06] MEDS: ATORVASTATIN CA 20 MG TABLET (FP) PO SCH (22:16)
[2018-10-07] MEDS: SODIUM CHLORIDE 1,000 ML IV SCH ×2 (03:23→14:14)
[2018-10-07] MEDS: INSULIN SLIDING SCALE (NOVOLOG) 1 VIAL SQ SCH ×4 (06:23→21:48)
--- NOTE | 2018-10-07 08:52 | PN ---
Progress Note (short form) - Note Progress Note: POD 11, s/p L THR Pt seen and examined. States he is feeling "okay" today. Reports no issues overnight. Went for IVC filter placement with Vascular yesterday. States he was oob 2 days ago, stood at edge of bed and ambulated slightly. Tolerating PO intake. Gillis remains in place for I&Os. Denies cp/sob, n/v/d, calf pain/edema. Vital Signs Temp 98.5 F 10/07/18 06:00 Pulse 82 10/07/18 06:00 Resp 18 10/07/18 06:00 BP 144/71 10/07/18 06:00 Pulse Ox 95 10/06/18 14:00 Intake & Output 10/06/18 10/06/18 10/07/18 11:59 23:59 11:59 Intake Total 1789 706 1399 Output Total 1000 1905 900 Balance 200 -1305 300 Weight 181 lb 6 oz 179 lb 3.2 oz Intake: IV 5227 797 8004 Normal Saline - 1,000 ml 1200 @ 100 mls/hr IV ASDIR NEETA Rx#:[id number] Normal Saline - 1,000 ml 1200 @ 100 mls/hr IV ASDIR NEETA Rx#:[id number] Output: Urine 1000 1900 900 Gillis 1000 1900 900 Estimated Blood Loss 5 Other: Voiding Method Indwelling Catheter Bowel Movement No Weight Measurement Method Built in Bedscale Built in Bedscale CBC, BMP 10/06/18 14:30 10/06/18 14:30 Gen: nad, sitting up in chair Eyes: b/l pale conjunctiva Resp: unlabored on RA Groin: R groin c/d/i with dermabond in place LE: Right LE with 1-2+ edema upper thigh, calf soft/nt no edema. LLE with dressing in place with mild-moderate serosanguinous drainage, dressing changed to new 4x4. Incision c/d/i no erythema or drainage. L hip with + edema (ctable from prior), some ecchymosis at medial portion of incision. Neuro: b/l le dorsi/plantarflexion 5/5, 5/5 HF on R, unable to lift LLE. A/P: 87 y/o M w/ PMHx HTN on no meds, Type II NIDDM, COPD and bronchiectasis on no meds, CKD, OA of spine and joints, s/p spine surgery and right hip replacement in the past, now POD 11, s/p L THR c/b acute blood loss anemia. S/P 6 units in total of pRBCs (09/28; 09/30; 10/02) UCX + (10/03) citrobacter koseri Continue to trend h&h Cont pain regimen as ordered On abx for UTI Incentive Spirometer OOB w/ PT WBAT LLE Posterior hip precaution d/w attending Dr Miranda
[2018-10-07] MEDS ORDERED: ENOXAPARIN NA (PORCINE) 80 MG/0.8 ML DISP.SYRIN SQ SCH (10:00)
--- NOTE | 2018-10-07 10:44 | PN ---
Physical Exam: SUBJECTIVE: Patient seen and examined OBJECTIVE: start lovenox 80mg bid, cleared by both ortho and vascular primary care doc: Neeraj Aguilar MD. [phone] monitor hmg/hct daily. consider discharge Wednesday if hmg/hct stable pending ortho clearance When discharged he will need lovenox 80mg BID x 1 month then transition to coumadin for 2 months. He will need outpatient hematology followup both the facility (rehab) and PCP to be informed of the above. at the rehab center and as an outpatient, his hmg/hct will need to be monitored at least twice per week while on the anticoagulation. IVC filter placed 10/06/2018. Vital Signs Period Temp Pulse Resp BP Sys/Faria Pulse Ox Last 24 Hr 98.3 F-98.9 F 82-97 16-18 114-151/61-72 95-95 GENERAL: The patient is awake, alert, and fully oriented, in no acute distress. HEAD: Normal with no signs of trauma. EYES: PERRL, extraocular movements intact, sclera anicteric, conjunctiva clear. No ptosis. ENT: Ears normal, nares patent, oropharynx clear without exudates, moist mucous membranes. NECK: Trachea midline, full range of motion, supple. LUNGS: Breath sounds equal, clear to auscultation bilaterally HEART: Regular rate and rhythm ABDOMEN: Soft, nontender, nondistended, normoactive bowel sounds EXTREMITIES: s/p left SANTA. left thigh with tenderness and mild edema at the surgical site. NEUROLOGICAL: Normal speech, gait not observed. PSYCH: Normal mood, normal affect Laboratory Results - last 24 hr 10/06/18 10/06/18 10/06/18 11:32 13:37 14:30 WBC RBC Hgb Hct MCV MCH MCHC RDW Plt Count MPV Absolute Neuts (auto) Neutrophils % Neutrophils % (Manual) Band Neutrophils % Lymphocytes % Lymphocytes % (Manual) Monocytes % Monocytes % (Manual) Eosinophils % Eosinophils % (Manual) Basophils % Basophils % (Manual) Myelocytes % (Man) Promyelocytes % (Man) Blast Cells % (Manual) Nucleated RBC % Metamyelocytes Hypochromia Toxic Granulation Dohle Bodies Platelet Estimate Polychromasia Poikilocytosis Basophilic Stippling Anisocytosis Microcytosis Macrocytosis Spherocytes Sickle Cells Target Cells Tear Drop Cells Ovalocytes Stomatocytes Helmet Cells Sr-[place] Bodies [place] Rings [place] Cells Acanthocytes (Spur) Rouleaux Fragmented RBCs Schistocytes PT with INR 17.10 H INR 1.44 H Sodium Potassium Chloride Carbon Dioxide Anion Gap BUN Creatinine Creat Clearance w eGFR POC Glucometer 145 161 Random Glucose Calcium Magnesium Total Bilirubin AST ALT Alkaline Phosphatase Total Protein Albumin 10/06/18 10/06/18 10/06/18 14:30 14:30 17:35 WBC 8.1 RBC 2.82 L Hgb 8.9 L Hct 25.8 L MCV 91.6 MCH 31.7 MCHC 34.6 RDW 14.8 Plt Count 471 H D MPV 6.4 L Absolute Neuts (auto) 5.8 Neutrophils % 72.1 Neutrophils % (Manual) 71.7 Band Neutrophils % 1.0 Lymphocytes % 17.3 Lymphocytes % (Manual) 14.2 D Monocytes % 7.4 Monocytes % (Manual) 9 Eosinophils % 2.9 Eosinophils % (Manual) 1.0 Basophils % 0.3 Basophils % (Manual) 0.0 Myelocytes % (Man) 1 D Promyelocytes % (Man) 0 Blast Cells % (Manual) 0 Nucleated RBC % 0 Metamyelocytes 2 D Hypochromia 0 Toxic Granulation 0 Dohle Bodies 0 Platelet Estimate Normal Polychromasia 0 Poikilocytosis 0 Basophilic Stippling 0 Anisocytosis 0 Microcytosis 0 Macrocytosis 0 Spherocytes 0 Sickle Cells 0 Target Cells 0 Tear Drop Cells 0 Ovalocytes 0 Stomatocytes 0 Helmet Cells 0 Sr-[place] Bodies 0 [place] Rings 0 [place] Cells 0 Acanthocytes (Spur) 0 Rouleaux 0 Fragmented RBCs 0 Schistocytes 0 PT with INR INR Sodium 138 Potassium 4.5 Chloride 106 Carbon Dioxide 26 Anion Gap 6 L BUN 9 Creatinine 0.5 L Creat Clearance w eGFR 158.03 POC Glucometer 210 Random Glucose 155 H Calcium 7.5 L Magnesium 1.8 Total Bilirubin 0.9 AST 31 ALT 31 Alkaline Phosphatase 43 L Total Protein 5.1 L Albumin 2.0 L 10/06/18 10/07/18 22:18 06:22 WBC RBC Hgb Hct MCV MCH MCHC RDW Plt Count MPV Absolute Neuts (auto) Neutrophils % Neutrophils % (Manual) Band Neutrophils % Lymphocytes % Lymphocytes % (Manual) Monocytes % Monocytes % (Manual) Eosinophils % Eosinophils % (Manual) Basophils % Basophils % (Manual) Myelocytes % (Man) Promyelocytes % (Man) Blast Cells % (Manual) Nucleated RBC % Metamyelocytes Hypochromia Toxic Granulation Dohle Bodies Platelet Estimate Polychromasia Poikilocytosis Basophilic Stippling Anisocytosis Microcytosis Macrocytosis Spherocytes Sickle Cells Target Cells Tear Drop Cells Ovalocytes Stomatocytes Helmet Cells Sr-[place] Bodies [place] Rings [place] Cells Acanthocytes (Spur) Rouleaux Fragmented RBCs Schistocytes PT with INR INR Sodium Potassium Chloride Carbon Dioxide Anion Gap BUN Creatinine Creat Clearance w eGFR POC Glucometer 221 177 Random Glucose Calcium Magnesium Total Bilirubin AST ALT Alkaline Phosphatase Total Protein Albumin Active Medications Generic Name Dose Route Start Last Admin Trade Name Freq PRN Reason Stop Dose Admin Al Hydroxide/Mg Hydroxide 30 ml 10/06/18 13:57 Mylanta Oral Suspension - PO Q4H PRN DYSPEPSIA Atorvastatin Calcium 20 mg 10/06/18 22:00 10/06/18 22:16 Lipitor - PO 20 mg HS NEETA Administration Calcium Carbonate/Cholecalciferol 1 tab 10/06/18 22:00 10/06/18 22:16 Os-Balbir 500+D - PO 1 tab BID NEETA Administration Ceftriaxone Sodium 1 gm/ 50 mls @ 100 mls/hr 10/07/18 10:00 Dextrose IVPB DAILY NEETA Protocol Sodium Chloride 1,000 mls @ 100 mls/hr 10/06/18 13:57 10/07/18 03:23 Normal Saline - IV 100 mls/hr ASDIR NEETA Administration Insulin Aspart 1 vial 10/06/18 16:30 10/07/18 06:23 Novolog Vial Sliding Scale - SQ 2 units ACHS NEETA Administration Protocol Magnesium Hydroxide 30 ml 10/06/18 13:57 Milk Of Magnesia - PO PRN PRN CONSTIPATION Magnesium Oxide 400 mg 10/06/18 22:00 10/06/18 22:16 Mag-Ox - PO 400 mg BID NEETA Administration Nystatin 1 applic 10/07/18 10:00 Nystop Powder - TP DAILY NEETA Ondansetron HCl 4 mg 10/06/18 13:57 Zofran Injection IVPUSH Q6H PRN NAUSEA Oxycodone HCl 5 mg 10/06/18 13:57 10/06/18 20:15 Roxicodone - PO 5 mg Q6H PRN Administration PAIN LEVEL 4 - 6 Oxycodone HCl 10 mg 10/06/18 13:57 Roxicodone - PO Q6H PRN PAIN LEVEL 7 - 10 Pantoprazole Sodium 40 mg 10/07/18 10:00 Protonix - PO DAILY [facility] Potassium Phos/Sodium Phos 1 packet 10/06/18 22:00 10/06/18 22:15 Phos-Nak Packet - PO 1 packet BID NEETA Administration Senna/Docusate Sodium 2 tablet 10/06/18 22:00 10/06/18 22:15 Pericolace - PO 2 tablet BID NEETA Administration Tamsulosin HCl 0.4 mg 10/07/18 08:30 Flomax - PO DAILY@0830 [facility] ASSESSMENT/PLAN: Patient is an 87 year-old male presented to the [facility] ED on 09/26/18 for an elective left total hip arthroplasty for left hip degenerative joint disease. Post op #1 he was hypotensive to 95/48 which improved with IVF. on day #2 his hmg dropped to 7.7 from baseline and was given 2 units of prbc with improvement. on post op day #3 he was noted to have more bleeding via stephanie drain with dark colored urine seen on lebron catheter. Patient was transferred to [facility] for further management. Patient was started on Eliquis for DVT in 2017 and switched to warfarin 2/2 to cost. His other history includes hypertension, DVT on Coumadin, diabetes, PAD, s/p Left SANTA complicated by post procedure anemia. Surgery: L hip degenerative disease- s/p Left total hip arthroplasty POD #11 Left SATNA. physical therapy following. for discharge to rehab once cleared by ortho. Hematology: History of bilateral dvts. Acute blood loss anemia. s/p 4 units of prbc during hospitalization initially on eliquis but stopped 2/2 to cost of eliquis, then was on coumadin which was stopped during this hospital stay. vascular study 09/29/18, left leg extensive DVT seen. IVC filter plced 10/06/18. Started on Lovenox 80mg BID dose on 10/07/18. will need Lovenox for 4 weeks post surgery, then transition to coumadin for 3 months, possibly 6mths per hematology. will ideally need to have CBC monitored twice per week while on anticoagulation to sure stable hmg/ hct. will need to coordinate this with his pcp or facility where patient is going to. Endocrine Diabetes. hold oral agents, on novolog ss. maintain bgms less than 180 Pulm: COPD, history in no acute exacerbation : + uti on ua (+3 leuks, wbc 176, +1 protein) started on ceftriaxone urine cultures pending fen tolerating po monitor electrolytes diabetic diet prophy lovenox bid Visit type - Emergency Visit Emergency Visit: Yes ED Registration Date: 09/26/18 Care time: The patient presented to the Emergency Department on the above date and was hospitalized for further evaluation of their emergent condition. - New Patient This patient is new to me today: No - Critical Care Critical Care patient: No - Discharge Referral Referred to [facility] No
[2018-10-07] MEDS ORDERED: DEXTROSE 5%-WATER - 50 ML IVPB ONE (10:49)
[2018-10-07] MEDS ORDERED: cefTRIAXone SODIUM 1 GM VIAL ONE (10:49)
[2018-10-07] MEDS: MAGNESIUM OXIDE 400 MG TABLET (FP) PO SCH ×2 (10:59→21:44)
[2018-10-07] MEDS: CALCIUM 500MG/VIT-D 200 UNITS COMBO TABLET (FP) PO SCH ×2 (10:59→21:44)
[2018-10-07] MEDS: SENNOSIDES/DOCUSATE COMBO (SENNA PLUS) TABLET (UD) PO SCH ×2 (10:59→21:44)
[2018-10-07] MEDS: TAMSULOSIN HCL 0.4 MG CAP PO SCH (10:59)
[2018-10-07] MEDS: PANTOPRAZOLE 40 MG TABLET (FP) PO SCH (11:00)
[2018-10-07] MEDS: NAPH,MB-DB/K PH,MBDB POWDER PACKET PO SCH ×2 (11:00→21:44)
[2018-10-07] MEDS: CEFTRIAXONE 1 GM in DEXTROSE 5%-WATER - 50 ML IVPB SCH (11:00)
[2018-10-07] MEDS: ENOXAPARIN NA (PORCINE) 80 MG/0.8 ML DISP.SYRIN SQ SCH ×2 (11:05→21:45)
--- NOTE | 2018-10-07 11:10 | PN ---
Progress Note (short form) - Note Progress Note: Patient seen and examined Less pain at surgical site No chest pain or SOB Last Vital Signs Temp Pulse Resp BP Pulse Ox 98.5 F 82 18 144/71 95 10/07/18 06:00 10/07/18 06:00 10/07/18 06:00 10/07/18 06:00 10/06/18 14:00 HEENT: YOAV, EOM Intact Cor: RSR, No murmurs, No gallops Lungs: Diminished breath sounds bilaterally Abd: Soft, Normal bowel sounds, No organomegaly Ext: L thigh swelling Skin: No rashes, Integument intact CBC, BMP 10/06/18 14:30 10/06/18 14:30 Current Medications Generic Name Dose Route Start Last Admin Trade Name Freq PRN Reason Stop Dose Admin Al Hydroxide/Mg Hydroxide 30 ml 10/06/18 13:57 Mylanta Oral Suspension - PO Q4H PRN DYSPEPSIA Atorvastatin Calcium 20 mg 10/06/18 22:00 10/06/18 22:16 Lipitor - PO 20 mg HS NEETA Administration Calcium Carbonate/Cholecalciferol 1 tab 10/06/18 22:00 10/06/18 22:16 Os-Balbir 500+D - PO 1 tab BID NEETA Administration Enoxaparin Sodium 80 mg 10/07/18 10:45 Lovenox - SQ BID NEETA Ceftriaxone Sodium 1 gm/ 50 mls @ 100 mls/hr 10/07/18 10:00 Dextrose IVPB DAILY NEETA Protocol Sodium Chloride 1,000 mls @ 100 mls/hr 10/06/18 13:57 10/07/18 03:23 Normal Saline - IV 100 mls/hr ASDIR NEETA Administration Insulin Aspart 1 vial 10/06/18 16:30 10/07/18 06:23 Novolog Vial Sliding Scale - SQ 2 units ACHS NEETA Administration Protocol Magnesium Hydroxide 30 ml 10/06/18 13:57 Milk Of Magnesia - PO PRN PRN CONSTIPATION Magnesium Oxide 400 mg 10/06/18 22:00 10/06/18 22:16 Mag-Ox - PO 400 mg BID NEETA Administration Nystatin 1 applic 10/07/18 10:00 Nystop Powder - TP DAILY NEETA Ondansetron HCl 4 mg 10/06/18 13:57 Zofran Injection IVPUSH Q6H PRN NAUSEA Oxycodone HCl 5 mg 10/06/18 13:57 10/06/18 20:15 Roxicodone - PO 5 mg Q6H PRN Administration PAIN LEVEL 4 - 6 Oxycodone HCl 10 mg 10/06/18 13:57 Roxicodone - PO Q6H PRN PAIN LEVEL 7 - 10 Pantoprazole Sodium 40 mg 10/07/18 10:00 Protonix - PO DAILY [facility] Potassium Phos/Sodium Phos 1 packet 10/06/18 22:00 10/06/18 22:15 Phos-Nak Packet - PO 1 packet BID NEETA Administration Senna/Docusate Sodium 2 tablet 10/06/18 22:00 10/06/18 22:15 Pericolace - PO 2 tablet BID NEETA Administration Tamsulosin HCl 0.4 mg 10/07/18 08:30 Flomax - PO DAILY@0830 [facility] Impression: S/P left hip arthroplasty -09/26 Provoked DVT-2016 s/p spinal surgery Provoked DVT appreciated 09/30 s/p hip surgery off a/c and at bed rest Lovenox begun Left thigh intramuscular hemorrhage Transfusion -s/p hip surgery-4 units s/p IVC filter Anemia Plan:: Lovenox x 30 days full dose Careful monitoring of Hb/Hct Coumadin therapeutic range post lovenox for an additional 2 month minimum , but can extend to 6 months total of a/c Additional a/c with coumadin for minimun of 2 months - total anticoagulation shoul be Suggest
[2018-10-07 12:14] LABS: BASO % 0.4 % (0-2.0); EOS % 2.5 % (0-4.5); HEMOGLOBIN 8.8 GM/dL (11.7-16.9); LYMPH % 16.2 % (8-40); MCHC 33.9 g/dl (32.0-35.9); MEAN CELL VOLUME 91.4 fl (80-96); MEAN PLT VOLUME 6.1 fl (7.5-11.1); MONO % 6.9 % (3.8-10.2); PLATELET COUNT 448 K/MM3 (134-434); RBC 2.84 M/mm3 (4.00-5.60)
[2018-10-07 12:24] LABS: INR 1.39 (0.83-1.09); PROTHROMBIN TIME (PATIENT) 16.4 SEC (9.7-13.0)
[2018-10-07 12:46] LABS: ALK PHOS 45 U/L (45-117); ANION GAP 4 MMOL/L (8-16); BLOOD UREA NITROGEN 9 mg/dL (7-18); CALCIUM 7.6 mg/dL (8.5-10.1); CHLORIDE 104 mmol/L (98-107); CO2 28 mmol/L (21-32); CREATININE 0.4 mg/dL (0.55-1.3); GLUCOSE,RANDOM 177 mg/dL (74-106); MAGNESIUM 1.6 mg/dL (1.8-2.4); POTASSIUM 3.9 mmol/L (3.5-5.1); SGOT/AST 27 U/L (15-37); SGPT/ALT 26 U/L (13-61); SODIUM 136 mmol/L (136-145); TOT PROT 5.1 g/dl (6.4-8.2)
[2018-10-07 13:14] LABS: ANISOCYTOSIS 0; HELMET CELLS 0; HOWELL-JOLLY BODIES 0; MACROCYTOSIS 0; OVALOCYTE 0; PLATELET ESTIMATE NORMAL; ROULEAU 0; SICKELED CELLS 0; TARGET CELLS 0; TEAR DROP CELLS 0; TOXIC GRANULATION 0
[2018-10-07] MEDS: NYSTATIN POWDER 100,000 UNITS/GM - 15 GM TOPICAL POWDER TP SCH (17:11)
[2018-10-07] MEDS ORDERED: INSULIN (NOVOLOG) ASPART 100 UNITS/ML 10ML VIAL ONE (21:04)
[2018-10-07] MEDS: ATORVASTATIN CA 20 MG TABLET (FP) PO SCH (21:44)
[2018-10-08] MEDS: oxyCODONE HCL 5 MG TABLET PO PRN ×2 (06:00→12:15)
[2018-10-08] MEDS: INSULIN SLIDING SCALE (NOVOLOG) 1 VIAL SQ SCH ×4 (06:05→22:32)
[2018-10-08] MEDS: TAMSULOSIN HCL 0.4 MG CAP PO SCH (08:47)
[2018-10-08] MEDS ORDERED: DEXTROSE 5%-WATER - 50 ML IVPB ONE (08:56)
[2018-10-08] MEDS ORDERED: cefTRIAXone SODIUM 1 GM VIAL ONE (08:56)
[2018-10-08] MEDS: PANTOPRAZOLE 40 MG TABLET (FP) PO SCH (09:09)
[2018-10-08] MEDS: NAPH,MB-DB/K PH,MBDB POWDER PACKET PO SCH ×2 (09:09→22:28)
[2018-10-08] MEDS: MAGNESIUM OXIDE 400 MG TABLET (FP) PO SCH ×2 (09:10→22:28)
[2018-10-08] MEDS: SENNOSIDES/DOCUSATE COMBO (SENNA PLUS) TABLET (UD) PO SCH ×2 (09:10→22:29)
[2018-10-08] MEDS: CALCIUM 500MG/VIT-D 200 UNITS COMBO TABLET (FP) PO SCH ×2 (09:10→22:28)
[2018-10-08] MEDS: ENOXAPARIN NA (PORCINE) 80 MG/0.8 ML DISP.SYRIN SQ SCH ×2 (09:10→22:29)
[2018-10-08] MEDS: NYSTATIN POWDER 100,000 UNITS/GM - 15 GM TOPICAL POWDER TP SCH ×2 (09:11→09:13)
[2018-10-08] MEDS: CEFTRIAXONE 1 GM in DEXTROSE 5%-WATER - 50 ML IVPB SCH (09:13)
[2018-10-08 11:17] LABS: BASO % 0.5 % (0-2.0); EOS % 1.5 % (0-4.5); HEMATOCRIT 28.5 % (35.4-49); HEMOGLOBIN 9.9 GM/dL (11.7-16.9); LYMPH % 12.3 % (8-40); MCH 32.1 pg (25.7-33.7); MCHC 34.7 g/dl (32.0-35.9); MEAN CELL VOLUME 92.3 fl (80-96); MEAN PLT VOLUME 6.6 fl (7.5-11.1); NEUT % 78.7 % (42.8-82.8); PLATELET COUNT 501 K/MM3 (134-434); RBC 3.09 M/mm3 (4.00-5.60); WHITE BLOOD COUNT 10.9 K/mm3 (4.0-10.0)
[2018-10-08 11:41] LABS: ALBUMIN 2.2 g/dl (3.4-5.0); ALK PHOS 51 U/L (45-117); ANION GAP 6 MMOL/L (8-16); BLOOD UREA NITROGEN 9 mg/dL (7-18); CALCIUM 7.9 mg/dL (8.5-10.1); CHLORIDE 102 mmol/L (98-107); CO2 27 mmol/L (21-32); CREATININE 0.5 mg/dL (0.55-1.3); GLUCOSE,RANDOM 200 mg/dL (74-106); POTASSIUM 4.2 mmol/L (3.5-5.1); SGOT/AST 22 U/L (15-37); SGPT/ALT 23 U/L (13-61); SODIUM 135 mmol/L (136-145); TOT PROT 5.6 g/dl (6.4-8.2)
--- NOTE | 2018-10-08 12:09 | PN ---
Physical Exam: SUBJECTIVE: Patient seen and examined OBJECTIVE: left elbow pain, limited rom and swelling of this joint no falls reported rule out for fracture with xray stable hmg/hct Vital Signs Period Temp Pulse Resp BP Sys/Faria Pulse Ox Last 24 Hr 98.3 F-98.6 F 82-85 18-20 127-144/65-71 95 GENERAL: The patient is awake, alert, and fully oriented,having left elbow pain HEAD: Normal with no signs of trauma. EYES: PERRL, extraocular movements intact, sclera anicteric, conjunctiva clear. No ptosis. ENT: Ears normal, nares patent, oropharynx clear without exudates, moist mucous membranes. NECK: Trachea midline, full range of motion, supple. LUNGS: Breath sounds equal, clear to auscultation bilaterally HEART: Regular rate and rhythm ABDOMEN: Soft, nontender, nondistended, normoactive bowel sounds EXTREMITIES: s/p left SANTA. left thigh with tenderness and mild edema at the surgical site. - left upper arm/elbow with swellng and pain. xray NEUROLOGICAL: Normal speech, gait not observed. PSYCH: Normal mood, normal affect Laboratory Results - last 24 hr 10/07/18 10/07/18 10/07/18 12:03 12:03 12:03 WBC 10.0 RBC 2.84 L Hgb 8.8 L Hct 26.0 L MCV 91.4 MCH 31.0 MCHC 33.9 RDW 15.0 Plt Count 448 H MPV 6.1 L Absolute Neuts (auto) 7.4 Neutrophils % 74.0 Neutrophils % (Manual) 75.0 Band Neutrophils % 1.0 Lymphocytes % 16.2 Lymphocytes % (Manual) 14.0 Monocytes % 6.9 Monocytes % (Manual) 7 Eosinophils % 2.5 Eosinophils % (Manual) 1.0 Basophils % 0.4 Basophils % (Manual) 1.0 D Myelocytes % (Man) 0 D Promyelocytes % (Man) 0 Blast Cells % (Manual) 0 Nucleated RBC % 0 Metamyelocytes 1 D Hypochromia 0 Toxic Granulation 0 Dohle Bodies 0 Platelet Estimate Normal Polychromasia 0 Poikilocytosis 0 Basophilic Stippling 0 Anisocytosis 0 Microcytosis 0 Macrocytosis 0 Spherocytes 0 Sickle Cells 0 Target Cells 0 Tear Drop Cells 0 Ovalocytes 0 Stomatocytes 0 Helmet Cells 0 Sr-[place]shear Bodies 0 [place] Rings 0 Beatriz Cells 0 Acanthocytes (Spur) 0 Rouleaux 0 Fragmented RBCs 0 Schistocytes 0 PT with INR 16.40 H INR 1.39 H Sodium 136 Potassium 3.9 Chloride 104 Carbon Dioxide 28 Anion Gap 4 L BUN 9 Creatinine 0.4 L Creat Clearance w eGFR 204.45 POC Glucometer Random Glucose 177 H Calcium 7.6 L Magnesium 1.6 L Total Bilirubin 1.0 AST 27 ALT 26 Alkaline Phosphatase 45 Total Protein 5.1 L Albumin 2.0 L 10/07/18 10/07/18 10/08/18 17:05 21:46 06:04 WBC RBC Hgb Hct MCV MCH MCHC RDW Plt Count MPV Absolute Neuts (auto) Neutrophils % Neutrophils % (Manual) Band Neutrophils % Lymphocytes % Lymphocytes % (Manual) Monocytes % Monocytes % (Manual) Eosinophils % Eosinophils % (Manual) Basophils % Basophils % (Manual) Myelocytes % (Man) Promyelocytes % (Man) Blast Cells % (Manual) Nucleated RBC % Metamyelocytes Hypochromia Toxic Granulation Dohle Bodies Platelet Estimate Polychromasia Poikilocytosis Basophilic Stippling Anisocytosis Microcytosis Macrocytosis Spherocytes Sickle Cells Target Cells Tear Drop Cells Ovalocytes Stomatocytes Helmet Cells Sr-[place] Bodies [place] Rings Beatriz Cells Acanthocytes (Spur) Rouleaux Fragmented RBCs Schistocytes PT with INR INR Sodium Potassium Chloride Carbon Dioxide Anion Gap BUN Creatinine Creat Clearance w eGFR POC Glucometer 167 153 153 Random Glucose Calcium Magnesium Total Bilirubin AST ALT Alkaline Phosphatase Total Protein Albumin 10/08/18 10/08/18 10:50 10:50 WBC 10.9 H RBC 3.09 L Hgb 9.9 L Hct 28.5 L MCV 92.3 MCH 32.1 MCHC 34.7 RDW 15.0 Plt Count 501 H MPV 6.6 L Absolute Neuts (auto) 8.6 H Neutrophils % 78.7 Neutrophils % (Manual) Band Neutrophils % Lymphocytes % 12.3 D Lymphocytes % (Manual) Monocytes % 7.0 Monocytes % (Manual) Eosinophils % 1.5 Eosinophils % (Manual) Basophils % 0.5 Basophils % (Manual) Myelocytes % (Man) Promyelocytes % (Man) Blast Cells % (Manual) Nucleated RBC % 0 Metamyelocytes Hypochromia Toxic Granulation Dohle Bodies Platelet Estimate Polychromasia Poikilocytosis Basophilic Stippling Anisocytosis Microcytosis Macrocytosis Spherocytes Sickle Cells Target Cells Tear Drop Cells Ovalocytes Stomatocytes Helmet Cells Sr-[place] Bodies [place] Rings Beatriz Cells Acanthocytes (Spur) Rouleaux Fragmented RBCs Schistocytes PT with INR INR Sodium 135 L Potassium 4.2 Chloride 102 Carbon Dioxide 27 Anion Gap 6 L BUN 9 Creatinine 0.5 L Creat Clearance w eGFR 158.03 POC Glucometer Random Glucose 200 H Calcium 7.9 L Magnesium Total Bilirubin 1.0 AST 22 ALT 23 Alkaline Phosphatase 51 Total Protein 5.6 L Albumin 2.2 L Active Medications Generic Name Dose Route Start Last Admin Trade Name Freq PRN Reason Stop Dose Admin Al Hydroxide/Mg Hydroxide 30 ml 10/06/18 13:57 Mylanta Oral Suspension - PO Q4H PRN DYSPEPSIA Atorvastatin Calcium 20 mg 10/06/18 22:00 10/07/18 21:44 Lipitor - PO 20 mg HS NEETA Administration Calcium Carbonate/Cholecalciferol 1 tab 10/06/18 22:00 10/08/18 09:10 Os-Balbir 500+D - PO 1 tab BID NEETA Administration Enoxaparin Sodium 80 mg 10/07/18 10:45 10/08/18 09:10 Lovenox - SQ 80 mg BID NEETA Administration Ceftriaxone Sodium 1 gm/ 50 mls @ 100 mls/hr 10/07/18 10:00 10/08/18 09:13 Dextrose IVPB 100 mls/hr DAILY NEETA Administration Protocol Sodium Chloride 1,000 mls @ 100 mls/hr 10/06/18 13:57 10/07/18 14:14 Normal Saline - IV Not Given ASDIR NEETA Insulin Aspart 1 vial 10/06/18 16:30 10/08/18 06:05 Novolog Vial Sliding Scale - SQ 2 units ACHS NEETA Administration Protocol Magnesium Hydroxide 30 ml 10/06/18 13:57 Milk Of Magnesia - PO PRN PRN CONSTIPATION Magnesium Oxide 400 mg 10/06/18 22:00 10/08/18 09:10 Mag-Ox - PO 400 mg BID NEETA Administration Nystatin 1 applic 10/07/18 10:00 10/08/18 09:13 Nystop Powder - TP 1 applic DAILY NEETA Administration Ondansetron HCl 4 mg 10/06/18 13:57 Zofran Injection IVPUSH Q6H PRN NAUSEA Oxycodone HCl 5 mg 10/06/18 13:57 10/08/18 06:00 Roxicodone - PO 5 mg Q6H PRN Administration PAIN LEVEL 4 - 6 Oxycodone HCl 10 mg 10/06/18 13:57 Roxicodone - PO Q6H PRN PAIN LEVEL 7 - 10 Pantoprazole Sodium 40 mg 10/07/18 10:00 10/08/18 09:09 Protonix - PO 40 mg DAILY NEETA Administration Potassium Phos/Sodium Phos 1 packet 10/06/18 22:00 10/08/18 09:09 Phos-Nak Packet - PO 1 packet BID NEETA Administration Senna/Docusate Sodium 2 tablet 10/06/18 22:00 10/08/18 09:10 Pericolace - PO 2 tablet BID NEETA Administration Tamsulosin HCl 0.4 mg 10/07/18 08:30 10/08/18 08:47 Flomax - PO 0.4 mg DAILY@0830 NEETA Administration ASSESSMENT/PLAN: Patient is an 87 year-old male presented to the [facility] ED on 09/26/18 for an elective left total hip arthroplasty for left hip degenerative joint disease. Post op #1 he was hypotensive to 95/48 which improved with IVF. on day #2 his hmg dropped to 7.7 from baseline and was given 2 units of prbc with improvement. on post op day #3 he was noted to have more bleeding via stephanie drain with dark colored urine seen on lebron catheter. Patient was transferred to [facility] for further management. Patient was started on Eliquis for DVT in 2017 and switched to warfarin 2/2 to cost. His other history includes hypertension, DVT on Coumadin, diabetes, PAD, s/p Left SANTA complicated by post procedure anemia. Surgery: L hip degenerative disease- s/p Left total hip arthroplasty POD #11 Left SANTA. physical therapy following. for discharge to rehab once cleared by ortho. left elbow xray pending Hematology: History of bilateral dvts. Acute blood loss anemia. s/p 4 units of prbc during hospitalization initially on eliquis but stopped 2/2 to cost of eliquis, then was on coumadin which was stopped during this hospital stay. vascular study 09/29/18, left leg extensive DVT seen. IVC filter plced 10/06/18. Started on Lovenox 80mg BID dose on 10/07/18. will need Lovenox for 4 weeks post surgery, then transition to coumadin for 3 months, possibly 6 mths per hematology. will ideally need to have CBC monitored twice per week while on anticoagulation to sure stable hmg/ hct. will need to coordinate this with his pcp or facility where patient is going to. Endocrine Diabetes. hold oral agents, on novolog ss. maintain bgms less than 180 Pulm: COPD, history in no acute exacerbation Ortho: left elbow pain and swelling. no falls reported rule out fracture with xray uric acid after xray to rule out gout? no hx of gout : + uti on ua (+3 leuks, wbc 176, +1 protein) started on ceftriaxone uc with citrobacteri fen tolerating po monitor electrolytes diabetic diet prophy lovenox bid Visit type - Emergency Visit Emergency Visit: Yes ED Registration Date: 09/26/18 Care time: The patient presented to the Emergency Department on the above date and was hospitalized for further evaluation of their emergent condition. - New Patient This patient is new to me today: No - Critical Care Critical Care patient: No - Discharge Referral Referred to [facility] Med P.C.: No
--- NOTE | 2018-10-08 15:44 | PN ---
Progress Note (short form) - Note Progress Note: New problem Painfull left elbow ?gout Insomnia Ortho Wound dry No NVD LE swelling much improved No claf or subsartorian tenderness Medical parameters re DVT and anticoagulation as per chart Filter in situ Heparin started for full anticoagulation PLAN Colchicine for elbow Valium for sleep PT Mobilize FWBAT
[2018-10-08] MEDS ORDERED: COLCHICINE 0.6 MG CAP PO ONE (15:51)
[2018-10-08] MEDS: SODIUM CHLORIDE 1,000 ML IV SCH (16:52)
[2018-10-08] MEDS ORDERED: ACETAMINOPHEN 500 MG TABLET (FP) PO ONE (17:11)
[2018-10-08] MEDS ORDERED: ACETAMINOPHEN 325 MG TABLET (FP) PO PRN (17:12)
[2018-10-08] MEDS: diazePAM 5 MG TABLET PO SCH (22:28)
[2018-10-08] MEDS: ATORVASTATIN CA 20 MG TABLET (FP) PO SCH (22:28)
[2018-10-09] MEDS: INSULIN SLIDING SCALE (NOVOLOG) 1 VIAL SQ SCH ×4 (06:48→22:07)
[2018-10-09] MEDS ORDERED: cefTRIAXone SODIUM 1 GM VIAL ONE (09:37)
[2018-10-09] MEDS ORDERED: DEXTROSE 5%-WATER - 50 ML IVPB ONE (09:38)
[2018-10-09] MEDS: NAPH,MB-DB/K PH,MBDB POWDER PACKET PO SCH ×2 (10:01→21:41)
[2018-10-09] MEDS: ENOXAPARIN NA (PORCINE) 80 MG/0.8 ML DISP.SYRIN SQ SCH ×2 (10:01→21:41)
[2018-10-09] MEDS: CEFTRIAXONE 1 GM in DEXTROSE 5%-WATER - 50 ML IVPB SCH (10:01)
[2018-10-09] MEDS: TAMSULOSIN HCL 0.4 MG CAP PO SCH (10:01)
[2018-10-09] MEDS: oxyCODONE HCL 5 MG TABLET PO PRN (10:02)
[2018-10-09] MEDS: NYSTATIN POWDER 100,000 UNITS/GM - 15 GM TOPICAL POWDER TP SCH (10:04)
[2018-10-09] MEDS: SENNOSIDES/DOCUSATE COMBO (SENNA PLUS) TABLET (UD) PO SCH ×2 (10:04→21:42)
[2018-10-09] MEDS: PANTOPRAZOLE 40 MG TABLET (FP) PO SCH (10:04)
[2018-10-09] MEDS: CALCIUM 500MG/VIT-D 200 UNITS COMBO TABLET (FP) PO SCH ×2 (10:04→21:41)
[2018-10-09] MEDS: diazePAM 5 MG TABLET PO SCH (10:04)
[2018-10-09] MEDS: MAGNESIUM OXIDE 400 MG TABLET (FP) PO SCH ×2 (10:04→21:41)
[2018-10-09 10:59] LABS: BASO % 0.6 % (0-2.0); EOS % 1.7 % (0-4.5); HEMATOCRIT 28.1 % (35.4-49); HEMOGLOBIN 9.6 GM/dL (11.7-16.9); LYMPH % 13.4 % (8-40); MCH 31.1 pg (25.7-33.7); MEAN CELL VOLUME 91.4 fl (80-96); MEAN PLT VOLUME 6.4 fl (7.5-11.1); MONO % 7.8 % (3.8-10.2); NEUT % 76.5 % (42.8-82.8); PLATELET COUNT 494 K/MM3 (134-434); RBC 3.08 M/mm3 (4.00-5.60); RDW 15.2 % (11.9-15.9); WHITE BLOOD COUNT 9.4 K/mm3 (4.0-10.0)
[2018-10-09 11:18] LABS: ALBUMIN 2.2 g/dl (3.4-5.0); ALK PHOS 53 U/L (45-117); ANION GAP 7 MMOL/L (8-16); BILIRUBIN,TOTAL 0.9 mg/dL (0.2-1); BLOOD UREA NITROGEN 9 mg/dL (7-18); CALCIUM 8.5 mg/dL (8.5-10.1); CHLORIDE 101 mmol/L (98-107); CO2 27 mmol/L (21-32); CREATININE 0.5 mg/dL (0.55-1.3); GLUCOSE,RANDOM 208 mg/dL (74-106); SGOT/AST 17 U/L (15-37); SGPT/ALT 18 U/L (13-61); SODIUM 135 mmol/L (136-145); TOT PROT 5.6 g/dl (6.4-8.2)
[2018-10-09] MEDS ORDERED: COLCHICINE 0.6 MG CAP PO ONE (13:47)
--- NOTE | 2018-10-09 13:51 | PN ---
Physical Exam: SUBJECTIVE: Patient seen and examined at the bedside. left arm still painful, but improved from yesterday. he is able to flex it better. given colchicine with good effect. OBJECTIVE: in no acute distress discussed patient POC with his and son. asking that she get a copy of the discharge instructions. On lovenox 80mg bid primary care doc: Neeraj Aguilar MD. [phone] monitor hmg/hct daily. consider discharge Wednesday if hmg/hct stable pending ortho clearance When discharged he will need lovenox 80mg BID x 1 month then transition to coumadin for 2 months. He will need outpatient hematology followup both the facility (rehab) and PCP to be informed of the above. at the rehab center and as an outpatient, his hmg/hct will need to be monitored at least twice per week while on the anticoagulation. IVC filter placed 10/06/2018. Vital Signs Period Temp Pulse Resp BP Sys/Faria Pulse Ox Last 24 Hr 98.5 F-99.1 F 82-99 18-20 125-138/65-74 95 GENERAL: The patient is awake, alert, and fully oriented,having left elbow pain HEAD: Normal with no signs of trauma. EYES: PERRL, extraocular movements intact, sclera anicteric, conjunctiva clear. No ptosis. ENT: Ears normal, nares patent, oropharynx clear without exudates, moist mucous membranes. NECK: Trachea midline, full range of motion, supple. LUNGS: Breath sounds equal, clear to auscultation bilaterally HEART: Regular rate and rhythm ABDOMEN: Soft, nontender, nondistended, normoactive bowel sounds EXTREMITIES: s/p left SANTA. left thigh with tenderness and mild edema at the surgical site. - left upper arm/elbow with swellng and pain. xray NEUROLOGICAL: Normal speech, gait not observed. PSYCH: Normal mood, normal affect Laboratory Results - last 24 hr 10/08/18 10/08/18 10/08/18 13:52 18:26 20:52 WBC RBC Hgb Hct MCV MCH MCHC RDW Plt Count MPV Absolute Neuts (auto) Neutrophils % Lymphocytes % Monocytes % Eosinophils % Basophils % Nucleated RBC % Sodium Potassium Chloride Carbon Dioxide Anion Gap BUN Creatinine Creat Clearance w eGFR POC Glucometer 169 232 185 Random Glucose Calcium Total Bilirubin AST ALT Alkaline Phosphatase Total Protein Albumin 10/09/18 10/09/18 10/09/18 06:02 10:34 10:34 WBC 9.4 RBC 3.08 L Hgb 9.6 L Hct 28.1 L MCV 91.4 MCH 31.1 MCHC 34.0 RDW 15.2 Plt Count 494 H MPV 6.4 L Absolute Neuts (auto) 7.2 Neutrophils % 76.5 Lymphocytes % 13.4 Monocytes % 7.8 Eosinophils % 1.7 Basophils % 0.6 Nucleated RBC % 0 Sodium 135 L Potassium 4.0 Chloride 101 Carbon Dioxide 27 Anion Gap 7 L BUN 9 Creatinine 0.5 L Creat Clearance w eGFR 158.03 POC Glucometer 149 Random Glucose 208 H Calcium 8.5 Total Bilirubin 0.9 AST 17 ALT 18 Alkaline Phosphatase 53 Total Protein 5.6 L Albumin 2.2 L 10/09/18 11:52 WBC RBC Hgb Hct MCV MCH MCHC RDW Plt Count MPV Absolute Neuts (auto) Neutrophils % Lymphocytes % Monocytes % Eosinophils % Basophils % Nucleated RBC % Sodium Potassium Chloride Carbon Dioxide Anion Gap BUN Creatinine Creat Clearance w eGFR POC Glucometer 179 Random Glucose Calcium Total Bilirubin AST ALT Alkaline Phosphatase Total Protein Albumin Active Medications Generic Name Dose Route Start Last Admin Trade Name Freq PRN Reason Stop Dose Admin Acetaminophen 650 mg 10/08/18 17:12 Tylenol - PO Q6H PRN PAIN LEVEL 4 - 6 Al Hydroxide/Mg Hydroxide 30 ml 10/06/18 13:57 Mylanta Oral Suspension - PO Q4H PRN DYSPEPSIA Atorvastatin Calcium 20 mg 10/06/18 22:00 10/08/18 22:28 Lipitor - PO 20 mg HS NEETA Administration Calcium Carbonate/Cholecalciferol 1 tab 10/06/18 22:00 10/09/18 10:04 Os-Balbir 500+D - PO 1 tab BID NEETA Administration Colchicine 1.2 mg 10/09/18 13:47 Colcrys - PO 10/09/18 13:48 ONCE ONE Diazepam 5 mg 10/08/18 22:00 10/09/18 10:04 Valium - PO 5 mg DAILY NEETA Administration Enoxaparin Sodium 80 mg 10/07/18 10:45 10/09/18 10:01 Lovenox - SQ 80 mg BID NEETA Administration Ceftriaxone Sodium 1 gm/ 50 mls @ 100 mls/hr 10/07/18 10:00 10/09/18 10:01 Dextrose IVPB 100 mls/hr DAILY NEETA Administration Protocol Sodium Chloride 1,000 mls @ 100 mls/hr 10/06/18 13:57 10/08/18 16:52 Normal Saline - IV 100 mls/hr ASDIR NEETA Administration Insulin Aspart 1 vial 10/06/18 16:30 10/09/18 11:55 Novolog Vial Sliding Scale - SQ 2 units ACHS NEETA Administration Protocol Magnesium Hydroxide 30 ml 10/06/18 13:57 Milk Of Magnesia - PO PRN PRN CONSTIPATION Magnesium Oxide 400 mg 10/06/18 22:00 10/09/18 10:04 Mag-Ox - PO 400 mg BID NEETA Administration Nystatin 1 applic 10/07/18 10:00 10/09/18 10:04 Nystop Powder - TP 1 applic DAILY NEETA Administration Ondansetron HCl 4 mg 10/06/18 13:57 Zofran Injection IVPUSH Q6H PRN NAUSEA Oxycodone HCl 5 mg 10/06/18 13:57 10/08/18 06:00 Roxicodone - PO 5 mg Q6H PRN Administration PAIN LEVEL 4 - 6 Oxycodone HCl 10 mg 10/06/18 13:57 10/09/18 10:02 Roxicodone - PO 10 mg Q6H PRN Administration PAIN LEVEL 7 - 10 Pantoprazole Sodium 40 mg 10/07/18 10:00 10/09/18 10:04 Protonix - PO 40 mg DAILY NEETA Administration Potassium Phos/Sodium Phos 1 packet 10/06/18 22:00 10/09/18 10:01 Phos-Nak Packet - PO 1 packet BID NEETA Administration Senna/Docusate Sodium 2 tablet 10/06/18 22:00 10/09/18 10:04 Pericolace - PO 2 tablet BID NEETA Administration Tamsulosin HCl 0.4 mg 10/07/18 08:30 10/09/18 10:01 Flomax - PO 0.4 mg DAILY@0830 NEETA Administration ASSESSMENT/PLAN: Patient is an 87 year-old male presented to the [facility] ED on 3 for an elective left total hip arthroplasty for left hip degenerative joint disease. Post op #1 he was hypotensive to 95/48 which improved with IVF. on day #2 his hmg dropped to 7.7 from baseline and was given 2 units of prbc with improvement. on post op day #3 he was noted to have more bleeding via stephanie drain with dark colored urine seen on lebron catheter. Patient was transferred to [facility] for further management. Patient was started on Eliquis for DVT in 2017 and switched to warfarin 2/2 to cost. His other history includes hypertension, DVT on Coumadin, diabetes, PAD, s/p Left SANTA complicated by post procedure anemia. Surgery: L hip degenerative disease- s/p Left total hip arthroplasty POD #12 Left SANTA. physical therapy following. for discharge to rehab once cleared by ortho. left elbow negative for acute fracture Hematology: History of bilateral dvts. Acute blood loss anemia. s/p 4 units of prbc during hospitalization initially on eliquis but stopped 2/2 to cost of eliquis, then was on coumadin which was stopped during this hospital stay. vascular study 09/29/18, left leg extensive DVT seen. IVC filter plced 10/06/18. Started on Lovenox 80mg BID dose on 10/07/18. will need Lovenox for 4 weeks post surgery, then transition to coumadin for 3 months, possibly 6 mths per hematology. will ideally need to have CBC monitored twice per week while on anticoagulation to sure stable hmg/ hct. will need to coordinate this with his pcp or facility where patient is going to. Endocrine Diabetes. hold oral agents, on novolog ss. maintain bgms less than 180 Pulm: COPD, history in no acute exacerbation Ortho: left elbow pain and swelling. no falls reported no fracture seen. uric acid not elevated. possible gout? give colchicine again today uric acid after xray to rule out gout? no hx of gout : + uti on ua (+3 leuks, wbc 176, +1 protein) started on ceftriaxone uc with citrobacteri fen tolerating po monitor electrolytes diabetic diet prophy lovenox bid Visit type - Emergency Visit Emergency Visit: Yes ED Registration Date: 09/26/18 Care time: The patient presented to the Emergency Department on the above date and was hospitalized for further evaluation of their emergent condition. - New Patient This patient is new to me today: No - Critical Care Critical Care patient: No - Discharge Referral Referred to [facility] Med P.C.: No
[2018-10-09] MEDS: SODIUM CHLORIDE 1,000 ML IV SCH (14:56)
[2018-10-09] MEDS ORDERED: oxyCODONE HCL 5 MG TABLET PO PRN (15:24)
[2018-10-09] MEDS ORDERED: diazePAM 5 MG TABLET PO PRN (15:26)
[2018-10-09] MEDS: ATORVASTATIN CA 20 MG TABLET (FP) PO SCH (21:41)
[2018-10-10] MEDS: INSULIN SLIDING SCALE (NOVOLOG) 1 VIAL SQ SCH ×4 (06:48→21:39)
[2018-10-10 08:19] LABS: BASO % 0.4 % (0-2.0); EOS % 3.1 % (0-4.5); HEMATOCRIT 27.3 % (35.4-49); HEMOGLOBIN 9.6 GM/dL (11.7-16.9); MCH 32.1 pg (25.7-33.7); MCHC 35.1 g/dl (32.0-35.9); MEAN CELL VOLUME 91.6 fl (80-96); MEAN PLT VOLUME 6.4 fl (7.5-11.1); MONO % 11.1 % (3.8-10.2); NEUT % 66.4 % (42.8-82.8); PLATELET COUNT 462 K/MM3 (134-434); RBC 2.99 M/mm3 (4.00-5.60); RDW 15.2 % (11.9-15.9); WHITE BLOOD COUNT 7.2 K/mm3 (4.0-10.0)
[2018-10-10] MEDS: TAMSULOSIN HCL 0.4 MG CAP PO SCH (08:44)
[2018-10-10 08:45] LABS: ALK PHOS 45 U/L (45-117); ANION GAP 5 MMOL/L (8-16); BILIRUBIN,TOTAL 0.8 mg/dL (0.2-1); BLOOD UREA NITROGEN 11 mg/dL (7-18); CALCIUM 7.7 mg/dL (8.5-10.1); CHLORIDE 102 mmol/L (98-107); CO2 27 mmol/L (21-32); CREATININE 0.5 mg/dL (0.55-1.3); GLUCOSE,RANDOM 148 mg/dL (74-106); POTASSIUM 3.9 mmol/L (3.5-5.1); SGOT/AST 15 U/L (15-37); SGPT/ALT 15 U/L (13-61); SODIUM 135 mmol/L (136-145); TOT PROT 5.2 g/dl (6.4-8.2)
[2018-10-10] MEDS ORDERED: DEXTROSE 5%-WATER - 50 ML IVPB ONE ×2 (09:50→11:51)
[2018-10-10] MEDS ORDERED: cefTRIAXone SODIUM 1 GM VIAL ONE ×2 (09:50→11:50)
[2018-10-10] MEDS: oxyCODONE HCL 5 MG TABLET PO PRN ×2 (09:56→16:49)
[2018-10-10] MEDS: CALCIUM 500MG/VIT-D 200 UNITS COMBO TABLET (FP) PO SCH ×2 (09:58→21:35)
[2018-10-10] MEDS: MAGNESIUM OXIDE 400 MG TABLET (FP) PO SCH ×2 (09:58→21:35)
[2018-10-10] MEDS: SENNOSIDES/DOCUSATE COMBO (SENNA PLUS) TABLET (UD) PO SCH ×2 (09:58→21:35)
[2018-10-10] MEDS: NYSTATIN POWDER 100,000 UNITS/GM - 15 GM TOPICAL POWDER TP SCH (09:59)
[2018-10-10] MEDS: PANTOPRAZOLE 40 MG TABLET (FP) PO SCH (09:59)
[2018-10-10] MEDS: NAPH,MB-DB/K PH,MBDB POWDER PACKET PO SCH ×2 (09:59→21:34)
[2018-10-10] MEDS: ENOXAPARIN NA (PORCINE) 80 MG/0.8 ML DISP.SYRIN SQ SCH ×2 (09:59→21:35)
[2018-10-10] MEDS: SODIUM CHLORIDE 1,000 ML IV SCH ×3 (10:38→21:33)
[2018-10-10 10:46] LABS: ANISOCYTOSIS 0; HELMET CELLS 0; HOWELL-JOLLY BODIES 0; MACROCYTOSIS 0; OVALOCYTE 0; PLATELET ESTIMATE NORMAL; ROULEAU 0; SICKELED CELLS 0; TARGET CELLS 0; TEAR DROP CELLS 0; TOXIC GRANULATION 0
--- NOTE | 2018-10-10 10:47 | PN ---
Physical Exam: SUBJECTIVE: Patient seen and examined at the bedside. left arm left painful, but improved from yesterday. he is able to flex it better. given colchicine with good effect. OBJECTIVE: in no acute distress discussed patient POC with his and son. asking that she get a copy of the discharge instructions. On lovenox 80mg bid started on 10/07/2018 and to continue x 1 month. then transition to coumadin based on INR for 3 - 6 months. rehab facility to monitor CBC twice weekly while on anticoagulation. Discussed this with his PCP Neeraj Aguilar MD this morning and PCP is in agreement. He will need outpatient hematology followup EXAM: GENERAL: The patient is awake, alert, and fully oriented,having left elbow pain improving. HEAD: Normal with no signs of trauma. EYES: PERRL, extraocular movements intact, sclera anicteric, conjunctiva clear. No ptosis. ENT: Ears normal, nares patent, oropharynx clear without exudates, moist mucous membranes. NECK: Trachea midline, full range of motion, supple. LUNGS: Breath sounds equal, clear to auscultation bilaterally HEART: Regular rate and rhythm ABDOMEN: Soft, nontender, nondistended, normoactive bowel sounds EXTREMITIES: s/p left SANTA. left thigh with tenderness and mild edema at the surgical site but improving - left upper arm/elbow with swelling and pain. xray negative for fracture NEUROLOGICAL: Normal speech, gait not observed. PSYCH: Normal mood, normal affect Vital Signs Period Temp Pulse Resp BP Sys/Faria Pulse Ox Last 24 Hr 98.1 F-99.7 F 78-95 16-18 113-119/56-65 Laboratory Results - last 24 hr 10/09/18 10/09/18 10/09/18 10:34 10:34 11:52 WBC 9.4 RBC 3.08 L Hgb 9.6 L Hct 28.1 L MCV 91.4 MCH 31.1 MCHC 34.0 RDW 15.2 Plt Count 494 H MPV 6.4 L Absolute Neuts (auto) 7.2 Neutrophils % 76.5 Lymphocytes % 13.4 Monocytes % 7.8 Eosinophils % 1.7 Basophils % 0.6 Nucleated RBC % 0 Sodium 135 L Potassium 4.0 Chloride 101 Carbon Dioxide 27 Anion Gap 7 L BUN 9 Creatinine 0.5 L Creat Clearance w eGFR 158.03 POC Glucometer 179 Random Glucose 208 H Calcium 8.5 Total Bilirubin 0.9 AST 17 ALT 18 Alkaline Phosphatase 53 Total Protein 5.6 L Albumin 2.2 L 10/09/18 10/09/18 10/10/18 17:18 20:45 05:47 WBC RBC Hgb Hct MCV MCH MCHC RDW Plt Count MPV Absolute Neuts (auto) Neutrophils % Lymphocytes % Monocytes % Eosinophils % Basophils % Nucleated RBC % Sodium Potassium Chloride Carbon Dioxide Anion Gap BUN Creatinine Creat Clearance w eGFR POC Glucometer 233 230 155 Random Glucose Calcium Total Bilirubin AST ALT Alkaline Phosphatase Total Protein Albumin 10/10/18 10/10/18 07:10 07:10 WBC 7.2 RBC 2.99 L Hgb 9.6 L Hct 27.3 L MCV 91.6 MCH 32.1 MCHC 35.1 RDW 15.2 Plt Count 462 H MPV 6.4 L Absolute Neuts (auto) 4.8 Neutrophils % 66.4 Lymphocytes % 19.0 D Monocytes % 11.1 H Eosinophils % 3.1 D Basophils % 0.4 Nucleated RBC % 0 Sodium 135 L Potassium 3.9 Chloride 102 Carbon Dioxide 27 Anion Gap 5 L BUN 11 Creatinine 0.5 L Creat Clearance w eGFR 158.03 POC Glucometer Random Glucose 148 H Calcium 7.7 L Total Bilirubin 0.8 AST 15 ALT 15 Alkaline Phosphatase 45 Total Protein 5.2 L Albumin 2.0 L Active Medications Generic Name Dose Route Start Last Admin Trade Name Freq PRN Reason Stop Dose Admin Acetaminophen 650 mg 10/08/18 17:12 Tylenol - PO Q6H PRN PAIN LEVEL 4 - 6 Al Hydroxide/Mg Hydroxide 30 ml 10/06/18 13:57 Mylanta Oral Suspension - PO Q4H PRN DYSPEPSIA Atorvastatin Calcium 20 mg 10/06/18 22:00 10/09/18 21:41 Lipitor - PO 20 mg HS NEETA Administration Calcium Carbonate/Cholecalciferol 1 tab 10/06/18 22:00 10/10/18 09:58 Os-Balbir 500+D - PO 1 tab BID NEETA Administration Diazepam 5 mg 10/09/18 15:26 10/10/18 00:51 Valium - PO 5 mg HS PRN Administration spasms Enoxaparin Sodium 80 mg 10/07/18 10:45 10/10/18 09:59 Lovenox - SQ 80 mg BID NEETA Administration Sodium Chloride 1,000 mls @ 100 mls/hr 10/06/18 13:57 10/10/18 10:38 Normal Saline - IV 100 mls/hr ASDIR NEETA Administration Insulin Aspart 1 vial 10/06/18 16:30 10/10/18 06:48 Novolog Vial Sliding Scale - SQ 2 units ACHS NEETA Administration Protocol Magnesium Hydroxide 30 ml 10/06/18 13:57 Milk Of Magnesia - PO PRN PRN CONSTIPATION Magnesium Oxide 400 mg 10/06/18 22:00 10/10/18 09:58 Mag-Ox - PO 400 mg BID NEETA Administration Nystatin 1 applic 10/07/18 10:00 10/10/18 09:59 Nystop Powder - TP 1 applic DAILY NEETA Administration Ondansetron HCl 4 mg 10/06/18 13:57 Zofran Injection IVPUSH Q6H PRN NAUSEA Oxycodone HCl 5 mg 10/09/18 15:24 Roxicodone - PO Q4H PRN PAIN LEVEL 4 - 6 Oxycodone HCl 10 mg 10/09/18 15:24 10/10/18 09:56 Roxicodone - PO 10 mg Q6H PRN Administration PAIN LEVEL 7 - 10 Pantoprazole Sodium 40 mg 10/07/18 10:00 10/10/18 09:59 Protonix - PO 40 mg DAILY NEETA Administration Potassium Phos/Sodium Phos 1 packet 10/06/18 22:00 10/10/18 09:59 Phos-Nak Packet - PO 1 packet BID NEETA Administration Senna/Docusate Sodium 2 tablet 10/06/18 22:00 10/10/18 09:58 Pericolace - PO 2 tablet BID NEETA Administration Tamsulosin HCl 0.4 mg 10/07/18 08:30 10/10/18 08:44 Flomax - PO 0.4 mg DAILY@0830 NEETA Administration ASSESSMENT/PLAN: Patient is an 87 year-old male presented to the [facility] ED on 3 for an elective left total hip arthroplasty for left hip degenerative joint disease. Post op #1 he was hypotensive to 95/48 which improved with IVF. on day #2 his hmg dropped to 7.7 from baseline and was given 2 units of prbc with improvement. on post op day #3 he was noted to have more bleeding via stephanie drain with dark colored urine seen on lebron catheter. Patient was transferred to [facility] for further management. Patient was started on Eliquis for DVT in 2017 and switched to warfarin 2/2 to cost. His other history includes hypertension, DVT on Coumadin, diabetes, PAD, s/p Left SANTA complicated by post procedure anemia. Surgery: L hip degenerative disease- s/p Left total hip arthroplasty POD #13 Left SANTA. physical therapy following. for discharge to rehab once cleared by ortho. left elbow negative for acute fracture Hematology: History of bilateral dvts. Acute blood loss anemia. s/p 4 units of prbc during hospitalization initially on eliquis but stopped 2/2 to cost of eliquis, then was on coumadin which was stopped during this hospital stay. vascular study 09/29/18, left leg extensive DVT seen. IVC filter plced 10/06/18. Started on Lovenox 80mg BID dose on 10/07/18. will need Lovenox for 4 weeks post surgery, then transition to coumadin for 3 months, possibly 6 mths per hematology. will ideally need to have CBC monitored twice per week while on anticoagulation to sure stable hmg/ hct. discussed POC with his PCP at [facility] this morning: Dr. Neeraj Jones who agrees with this therapy. Endocrine Diabetes. hold oral agents, on novolog ss. maintain bgms less than 180 Pulm: COPD, history in no acute exacerbation Ortho: left elbow pain and swelling. no falls reported, no history of gout no fracture seen on xray uric acid not elevated. possible gout? give colchicine today : + uti on ua (+3 leuks, wbc 176, +1 protein) started on ceftriaxone 10/04/18. uc with citrobacteri (has received 7 days of antibiotics of ceftriaxone, will d/ c today) fen tolerating po monitor electrolytes diabetic diet prophy lovenox bid Visit type - Emergency Visit Emergency Visit: Yes ED Registration Date: 09/26/18 Care time: The patient presented to the Emergency Department on the above date and was hospitalized for further evaluation of their emergent condition. - New Patient This patient is new to me today: No - Critical Care Critical Care patient: No - Discharge Referral Referred to [facility] Med P.C.: No
[2018-10-10] MEDS ORDERED: CEFTRIAXONE 1 GM in DEXTROSE 5%-WATER - 50 ML IVPB ONE (11:38)
[2018-10-10] MEDS ORDERED: COLCHICINE 0.6 MG CAP PO ONE (11:39)
--- NOTE | 2018-10-10 20:39 | DS ---
Physical Exam: SUBJECTIVE: Patient seen and examined at the bedside. reports improvement of left arm joint swelling. OBJECTIVE: for discharge to rehab Vital Signs Period Temp Pulse Resp BP Sys/Faria Pulse Ox Last 24 Hr 98.1 F-100.3 F 78-88 16-20 109-125/56-65 PHYSICAL EXAM GENERAL: The patient is awake, alert, and fully oriented- left elbow pain improving. no pain on lower extremities. HEAD: Normal with no signs of trauma. EYES: PERRL, extraocular movements intact, sclera anicteric, conjunctiva clear. No ptosis. ENT: Ears normal, nares patent, oropharynx clear without exudates, moist mucous membranes. NECK: Trachea midline, full range of motion, supple. LUNGS: Breath sounds equal, clear to auscultation bilaterally HEART: Regular rate and rhythm ABDOMEN: Soft, nontender, nondistended, normoactive bowel sounds EXTREMITIES: s/p left SANTA. left thigh with tenderness and mild edema at the surgical site but improving - left upper arm/elbow with swelling and pain. xray negative for fracture NEUROLOGICAL: Normal speech, gait not observed. PSYCH: Normal mood, normal affect LABS Laboratory Results - last 24 hr 10/09/18 10/10/18 10/10/18 20:45 05:47 07:10 WBC 7.2 RBC 2.99 L Hgb 9.6 L Hct 27.3 L MCV 91.6 MCH 32.1 MCHC 35.1 RDW 15.2 Plt Count 462 H MPV 6.4 L Absolute Neuts (auto) 4.8 Neutrophils % 66.4 Neutrophils % (Manual) 64.6 Band Neutrophils % 0.0 Lymphocytes % 19.0 D Lymphocytes % (Manual) 18.2 D Monocytes % 11.1 H Monocytes % (Manual) 9 Eosinophils % 3.1 D Eosinophils % (Manual) 5.1 H D Basophils % 0.4 Basophils % (Manual) 0.0 Myelocytes % (Man) 2 D Promyelocytes % (Man) 0 Blast Cells % (Manual) 0 Nucleated RBC % 0 Metamyelocytes 0 D Hypochromia 0 Toxic Granulation 0 Dohle Bodies 0 Platelet Estimate Normal Polychromasia 0 Poikilocytosis 0 Basophilic Stippling 0 Anisocytosis 0 Microcytosis 0 Macrocytosis 0 Spherocytes 0 Sickle Cells 0 Target Cells 0 Tear Drop Cells 0 Ovalocytes 0 Stomatocytes 0 Helmet Cells 0 Sr-Arnold Bodies 0 Wister Rings 0 [place] Cells 0 Acanthocytes (Spur) 0 Rouleaux 0 Fragmented RBCs 0 Schistocytes 0 Sodium Potassium Chloride Carbon Dioxide Anion Gap BUN Creatinine Creat Clearance w eGFR POC Glucometer 230 155 Random Glucose Calcium Total Bilirubin AST ALT Alkaline Phosphatase Total Protein Albumin Stool Occult Blood 10/10/18 10/10/18 10/10/18 07:10 11:30 15:00 WBC RBC Hgb Hct MCV MCH MCHC RDW Plt Count MPV Absolute Neuts (auto) Neutrophils % Neutrophils % (Manual) Band Neutrophils % Lymphocytes % Lymphocytes % (Manual) Monocytes % Monocytes % (Manual) Eosinophils % Eosinophils % (Manual) Basophils % Basophils % (Manual) Myelocytes % (Man) Promyelocytes % (Man) Blast Cells % (Manual) Nucleated RBC % Metamyelocytes Hypochromia Toxic Granulation Dohle Bodies Platelet Estimate Polychromasia Poikilocytosis Basophilic Stippling Anisocytosis Microcytosis Macrocytosis Spherocytes Sickle Cells Target Cells Tear Drop Cells Ovalocytes Stomatocytes Helmet Cells Sr-Arnold Bodies Wister Rings Beatriz Cells Acanthocytes (Spur) Rouleaux Fragmented RBCs Schistocytes Sodium 135 L Potassium 3.9 Chloride 102 Carbon Dioxide 27 Anion Gap 5 L BUN 11 Creatinine 0.5 L Creat Clearance w eGFR 158.03 POC Glucometer 165 Random Glucose 148 H Calcium 7.7 L Total Bilirubin 0.8 AST 15 ALT 15 Alkaline Phosphatase 45 Total Protein 5.2 L Albumin 2.0 L Stool Occult Blood Negative 10/10/18 16:38 WBC RBC Hgb Hct MCV MCH MCHC RDW Plt Count MPV Absolute Neuts (auto) Neutrophils % Neutrophils % (Manual) Band Neutrophils % Lymphocytes % Lymphocytes % (Manual) Monocytes % Monocytes % (Manual) Eosinophils % Eosinophils % (Manual) Basophils % Basophils % (Manual) Myelocytes % (Man) Promyelocytes % (Man) Blast Cells % (Manual) Nucleated RBC % Metamyelocytes Hypochromia Toxic Granulation Dohle Bodies Platelet Estimate Polychromasia Poikilocytosis Basophilic Stippling Anisocytosis Microcytosis Macrocytosis Spherocytes Sickle Cells Target Cells Tear Drop Cells Ovalocytes Stomatocytes Helmet Cells Sr-Arnold Bodies Wister Rings [place] Cells Acanthocytes (Spur) Rouleaux Fragmented RBCs Schistocytes Sodium Potassium Chloride Carbon Dioxide Anion Gap BUN Creatinine Creat Clearance w eGFR POC Glucometer 161 Random Glucose Calcium Total Bilirubin AST ALT Alkaline Phosphatase Total Protein Albumin Stool Occult Blood HOSPITAL COURSE: Date of Admission:09/26/18 Date of Discharge: 10/10/18 HOSPITAL COURSE: Patient is an 87 year-old male presented to the [facility] ED on 3 for an elective left total hip arthroplasty for left hip degenerative joint disease. Post op #1 he was hypotensive to 95/48 which improved with IVF. on day #2 his hmg dropped to 7.7 from baseline and was given 2 units of prbc with improvement. on post op day #3 he was noted to have more bleeding via stephanie drain with dark colored urine seen on lebron catheter. Patient was transferred to [facility] for further management. Patient was started on Eliquis for DVT in 2017 and switched to warfarin 2/2 to cost. His other history includes hypertension, DVT on Coumadin, diabetes, PAD, s/p Left SANTA complicated by post procedure anemia. Hospital course by problem list: Surgery: L hip degenerative disease- s/p Left total hip arthroplasty on 09/26/2018. Hematology: History of DVTs 2017, provoked after spinal surgery New left leg extensive DVT, provoked s/p hip surgery IVC filter placed 10/06/18. Started on Lovenox 80mg BID dose on 10/07/18. Will need Lovenox for 4 weeks post surgery, then transition to Coumadin for 3 months (possibly 6 mths per hematology). Will need BI WEEKLY monitoring of CBC to assure hemaglobin stable on this therapy. If hemoglobin drops, can consider daily Lovenox dosing. Discussed POC with his PCP Dr. Neeraj Jones who agrees with this therapy. Acute blood loss anemia. s/p 6 units of prbc during hospitalization. hemoglobin stable. Left thigh hemorrhage s/p surgery. improving. continue to monitor. Endocrine Diabetes. continue home medications. Ortho: left elbow pain and swelling. no falls reported, no history of gout no fracture seen on xray uric acid not elevated. possible gout. given colchicine with improvement. : Urine culture with citrobacteri (has received 7 days of antibiotics of ceftriaxone, will d/c ceftriaxone today) Discharge to rehab with follow up with PCP and hematology. Minutes to complete discharge: 60 Discharge Summary Reason For Visit: UNILATERAL OSTEOARTHRITIS Current Active Problems DVT (deep venous thrombosis) (Acute) Degenerative joint disease of left hip (Acute) Groin rash (Acute) HTN (hypertension) (Acute) Hypocalcemia (Acute) Hypomagnesemia (Acute) Hypophosphatemia (Acute) Loose total hip arthroplasty (Acute) Malnutrition (Acute) Postoperative anemia (Acute) Postoperative anemia due to acute blood loss (Acute) Condition: Improved - Instructions Diet, Activity, Other Instructions: Mr. Moon/Facility staff: Mr. Moon was admitted to [facility] on 09/26/2018 for an elective left total hip arthoplasty for left hip degenerative joint disease. He has a past medical history that includes deep vein thrombosis in 2017 after spinal surgery. He was initially on Eliquis and transitioned to Coumadin secondary to cost. During his hospitalization a vascular study showed that patient developed a new left leg DVT. He was seen by clinical research assistant during hospitalization. Here our our discharge instructions: #DVT Left leg DVT: left leg occlusive thrombus within the upper, middle and lower thirds of the femoral vein as well as popliteal and posterior tibial veins. He has also developed post op anemia and has been transfused 4 units of PRBC during his stay. He had an IVC filter placed on 10/06/2018. Lovenox 80mg (weight based dose) was started on 10/07/18 and is to continue for a month until 11/07/2018. He then will need 3-6 months of Coumadin after Lovenox. Coumadin will be based on his INR with a goal INR between 2-3. He will need to have his CBC monitored at least twice weekly to assure that his hemaglobi and hematocrit remain stable while on the Lovenox therapy. If his CBC down trends, then he can be transitioned to Lovenox daily dosing. His PCP Dr. Aguilar has been made aware of the anticoagulation therapy. #ORTHOPEDICS L hip degenerative disease- s/p Left total hip arthroplasty. For rehab Left elbow joint swelling. Negative for fracture and has improved with colchecine. #Hematology: Monitor CBC twice weekly. Follow ups: Please follow up with your primary care doctor upon discharge from rehab. Please follow up with your clinical research assistant, you can also call and make an appointment with our clinical research assistant who saw you during your hospitalization (his information is enclosed). Thank you for allowing us to care for you. Referrals: Usama Potts MD [Staff Physician] - (call for follow up appointment) Tramaine Miranda MD [Staff Physician] - (call for follow up appointment ) Disposition: [facility] - Home Medications Comprehensive Discharge Medication List: Ambulatory Orders Glipizide 5 mg PO DAILY 05/19/18 Metformin HCl [Glucophage] 500 mg PO DAILY 05/19/18 Multivitamins [Multivit ([facility] Formul[facility])] 1 tab PO DAILY 05/19/18 Oxycodone HCl/Acetaminophen [Oxycodone-Acetaminophen 10-325] 1 each PO BID PRN 05/19/18 Simvastatin 40 mg PO HS 05/19/18 Calcium 500Mg/Vit-D 200 Units [Os-Balbir 500+D -] 1 tab PO BID tab 10/10/18 Enoxaparin [Lovenox -] 80 mg SQ BID disp.syrin 10/10/18 Mag Hydrox/Al Hydrox/Simeth [Mylanta Oral Suspension -] 30 ml PO Q4H PRN cup Magnesium Oxide [Mag-Ox -] 400 mg PO BID tablet 10/10/18 Naph,Mb-Db/K pH,Mbdb [PHOS-NaK PACKET -] 1 packet PO BID pow 10/10/18 Nystatin Powder [Nystop Powder -] 1 applic TP DAILY applic 10/10/18 Ondansetron Injection [Zofran Injection] 4 mg IVPUSH Q6H PRN vial 10/10/18 Pantoprazole Sodium [Protonix -] 40 mg PO DAILY tablet.ec 10/10/18 Sennosides/Docusate Sodium [Pericolace -] 2 tablet PO BID tablet 10/10/18 Tamsulosin HCl [Flomax -] 0.4 mg PO DAILY@0830 cap.er.24h 10/10/18 This patient is new to me today: No Emergency Visit: Yes ED Registration Date: 09/26/18 Care time: The patient presented to the Emergency Department on the above date and was hospitalized for further evaluation of their emergent condition. Critical Care patient: No - Discharge Referral Referred to [facility] Med P.C.: No
[2018-10-10] MEDS: ATORVASTATIN CA 20 MG TABLET (FP) PO SCH (21:35)
[2018-10-11] MEDS: INSULIN SLIDING SCALE (NOVOLOG) 1 VIAL SQ SCH ×2 (06:04→12:10)
[2018-10-11] MEDS: oxyCODONE HCL 5 MG TABLET PO PRN (08:25)
[2018-10-11] MEDS: TAMSULOSIN HCL 0.4 MG CAP PO SCH (08:25)
[2018-10-11] MEDS: PANTOPRAZOLE 40 MG TABLET (FP) PO SCH (09:32)
[2018-10-11] MEDS: MAGNESIUM OXIDE 400 MG TABLET (FP) PO SCH (09:32)
[2018-10-11] MEDS: SENNOSIDES/DOCUSATE COMBO (SENNA PLUS) TABLET (UD) PO SCH (09:32)
[2018-10-11] MEDS: NAPH,MB-DB/K PH,MBDB POWDER PACKET PO SCH (09:32)
[2018-10-11] MEDS: CALCIUM 500MG/VIT-D 200 UNITS COMBO TABLET (FP) PO SCH (09:32)
[2018-10-11] MEDS: ENOXAPARIN NA (PORCINE) 80 MG/0.8 ML DISP.SYRIN SQ SCH (09:33)
[2018-10-11] MEDS: NYSTATIN POWDER 100,000 UNITS/GM - 15 GM TOPICAL POWDER TP SCH (09:33)
[2018-10-11 09:36] VITALS: BP 108/58; PULSE 89; TEMP 98
== END 2018-10-11 13:00 | DRG 470 ==
LOC: FM/S 06:17 → JICU 09-29 20:20 → J8W 09-30 15:39
PROVIDERS: ADMIT Orthopaedic Surgery Orthopaedic Surgery of the Spine; ATTEND Internal Medicine
PROC: 0SRB03A Replacement of Left Hip Joint with Ceramic Synthetic Substitute, Uncemented, Open Approach (ICD-10-PCS; principal; 2018-09-26 09:28)
PROC: 30233N1 Transfusion of Nonautologous Red Blood Cells into Peripheral Vein, Percutaneous Approach (ICD-10-PCS; 2018-09-28)
PROC: 0T9B70Z Drainage of Bladder with Drainage Device, Via Natural or Artificial Opening (ICD-10-PCS; 2018-10-01)
PROC: 06H03DZ Insertion of Intraluminal Device into Inferior Vena Cava, Percutaneous Approach (ICD-10-PCS; 2018-10-06)
DX: M16.12 Unilateral primary osteoarthritis, left hip (principal); I82.432 Acute embolism and thrombosis of left popliteal vein; I82.412 Acute embolism and thrombosis of left femoral vein; I82.442 Acute embolism and thrombosis of left tibial vein; D62 Acute posthemorrhagic anemia; D68.32 Hemorrhagic disorder due to extrinsic circulating anticoagulants; N17.9 Acute kidney failure, unspecified; E46 Unspecified protein-calorie malnutrition; N39.0 Urinary tract infection, site not specified; T84.038A Mechanical loosening of other internal prosthetic joint, initial encounter; Y84.8 Other medical procedures as the cause of abnormal reaction of the patient, or of later complication, without mention of misadventure at the time of the procedure; Y83.8 Other surgical procedures as the cause of abnormal reaction of the patient, or of later complication, without mention of misadventure at the time of the procedure; Y79.2 Prosthetic and other implants, materials and accessory orthopedic devices associated with adverse incidents; Y92.230 Patient room in hospital as the place of occurrence of the external cause; E83.42 Hypomagnesemia; Z86.718 Personal history of other venous thrombosis and embolism; Z96.641 Presence of right artificial hip joint; I12.9 Hypertensive chronic kidney disease with stage 1 through stage 4 chronic kidney disease, or unspecified chronic kidney disease; E11.22 Type 2 diabetes mellitus with diabetic chronic kidney disease; N18.9 Chronic kidney disease, unspecified; J44.9 Chronic obstructive pulmonary disease, unspecified; M47.9 Spondylosis, unspecified; E78.5 Hyperlipidemia, unspecified; E83.39 Other disorders of phosphorus metabolism; R33.8 Other retention of urine; E87.6 Hypokalemia; E83.51 Hypocalcemia; R21 Rash and other nonspecific skin eruption; R50.81 Fever presenting with conditions classified elsewhere; B96.89 Other specified bacterial agents as the cause of diseases classified elsewhere; G47.00 Insomnia, unspecified; M10.022 Idiopathic gout, left elbow; Z79.84 Long term (current) use of oral hypoglycemic drugs
CPT/HCPCS: 36415; 36430; 36511; 71045-TC-FY; 73070-TC-LT-FY; 73523-TC-FY; 73700-TC-RT; 74176-TC; 76000-TC-FY; 76775-TC; 76856-TC; 80048; 80053; 80076; 81003; 81015; 82248; 82272; 82570; 82962; 83010; 83605; 83615; 83735; 83930; 83935; 84100; 84300; 84484; 84550; 85025; 85027; 85044; 85610; 86850; 86900; 86901; 86922; 87040; 87086; 87186; 88305-TC; 88311-TC; 93005; 93970-TC; 94760; 97116-GP; 97163-GP; J1644; J7030; P9038; P9058